=== PATIENT | female | born 1975 | race Caucasian/White ===

== ENCOUNTER 2017-12-18 13:48 | Emergency (ER) | payer MEDICARE, OTHER ==
--- NOTE | 2017-12-18 13:52 | ED ---
Psych HPI - General Source: RN notes reviewed, old records reviewed - History of Present Illness Complaint: suicidal ideation, feels depressed -: unknown Associated Psychiatric Symptoms: depression, suicidal ideation History of same: Yes Quality: changing over time, getting worse Improves With: none Worsens With: none Associated Symptoms: denies other symptoms Treatments Prior to Arrival: none If Self Harm: admits thoughts of self harm <Harrison Carrero - Last Filed: 12/18/17 14:17> <Maxime Her - Last Filed: 12/18/17 17:59> - General Stated Complaint: Mental Health Time Seen by Provider: 12/18/17 13:52 - History of Present Illness Initial Comments: This is a 42-year-old female the ER for evaluation. Patient has a for suicidal ideation. Depression. Patient is off all psychiatric medication, states she has no help feels hopeless and would like to kill herself (Harrison Carrero) - Related Data Home Medications Medication Instructions Recorded Confirmed [place] Carbonate 600 mg PO HS 08/30/14 12/18/17 Buprenorphine HCl/Naloxone HCl 1 tab SUBLINGUAL BID 12/18/17 12/18/17 [Zubsolv 5.7-1.4 mg Tablet Sl] Gabapentin 800 mg PO QID 12/18/17 12/18/17 PARoxetine HCL [Paxil Cr] 37.5 mg PO DAILY 12/18/17 12/18/17 Allergies Allergy/AdvReac Type Severity Reaction Status Date / Time ketorolac tromethamine Allergy Rash/Hives Verified 12/18/17 14:29 [From Toradol] mushroom Allergy Unknown Verified 12/18/17 14:29 tramadol AdvReac SEIZURES Verified 12/18/17 14:29 Review of Systems ROS Other: All systems not noted in ROS Statement are negative. <Harrison Carrero - Last Filed: 12/18/17 14:17> ROS Other: All systems not noted in ROS Statement are negative. <Maxime Her - Last Filed: 12/18/17 17:59> ROS Statement: Those systems with pertinent positive or pertinent negative responses have been documented in the HPI. Past Medical History Past Medical History: Seizure Disorder Additional Past Medical History / Comment(s): BACK PAIN, ARTHRITIS History of Any Multi-Drug Resistant Organisms: None Reported Additional Past Surgical History / Comment(s): LAP BAND Past Psychological History: Bipolar Smoking Status: Current every day smoker Past Alcohol Use History: None Reported Past Drug Use History: None Reported <Harrison Carrero - Last Filed: 12/18/17 14:17> Vital Signs 12/18/17 13:55 Temperature 98.7 F Pulse Rate 80 Respiratory 18 Rate Blood Pressure 144/112 O2 Sat by Pulse 98 Oximetry Medical Decision Making <Harrison Carrero - Last Filed: 12/18/17 14:17> <Maxime Her - Last Filed: 12/18/17 17:59> - Medical Decision Making Patient reevaluated after sign out and EPS evaluation. She is no longer suicidal. She feels comfortable with discharge. EPS recommends discharge and close outpatient follow-up. She will follow-up with [facility] tomorrow. She will resume her medications. Return with worsening or changing symptoms. (Maxime Her) Disposition <Harrison Carrero - Last Filed: 12/18/17 14:17> Is patient prescribed a controlled substance at d/c from ED?: No Time of Disposition: 17:59 <Maxime Her - Last Filed: 12/18/17 17:59> Clinical Impression: Depression Disposition: HOME SELF-CARE Condition: Good Instructions: Depression (ED) Referrals: Ralph Corrales MD [Primary Care Provider] - 1-2 days
[2017-12-18 14:01] VITALS: RESP 18; TEMP 98.7
[2017-12-18 18:25] VITALS: BP 106/91; PULSE 81
== END 2017-12-18 18:37 | disposition home or self-care (01) ==
LOC: EC 13:48
DX: F31.9 Bipolar disorder, unspecified (principal); G40.909 Epilepsy, unspecified, not intractable, without status epilepticus; F17.200 Nicotine dependence, unspecified, uncomplicated; Z79.899 Other long term (current) drug therapy; Z88.5 Allergy status to narcotic agent; Z88.6 Allergy status to analgesic agent; Z88.8 Allergy status to other drugs, medicaments and biological substances; Z91.018 Allergy to other foods
CPT/HCPCS: 82075; 99285

== ENCOUNTER 2018-02-24 17:28 | Emergency (ER) | payer MEDICARE, OTHER ==
[2018-02-24 17:38] VITALS: RESP 18
[2018-02-24] MEDS ORDERED: HYDROcodone/APAP 5-325MG 1 EACH TAB PO STA (18:53)
[2018-02-24] MEDS ORDERED: DIAZEPAM 5 MG TAB PO STA (18:54)
--- NOTE | 2018-02-24 19:26 | ED ---
Fall HPI - General Chief Complaint: Fall Stated Complaint: Back Pain Time Seen by Provider: 02/24/18 17:59 Source: patient, EMS Mode of arrival: EMS - History of Present Illness Initial Comments: 43-year-old female patient presents to the emergency department today for evaluation after expressing a slip and fall accident and her driveway. Patient states that her primary care physician is no longer providing her Xanax so her anxiety and panic has been increased lately. Patient states she was startled by something in the driveway when she panicked, slipped, and fell. Patient states she did land on her back. She denies hitting her head or losing consciousness. States that she is having increased neck and back pain after the fall. States she is having some pain radiating into her bilateral shoulders. States that she is experiencing some tingling to her lower extremities. She denies any loss of bowel or bladder control. Denies any saddle anesthesia. Patient states she does have history of back and neck pain. Denies taking anything for pain or discomfort prior to arrival. She was brought in by EMS. Patient denies any headache, chest pain, shortness of breath , dizziness, weakness, abdominal pain, nausea, vomiting, or difficulties with bowel movements or urination. - Related Data Home Medications Medication Instructions Recorded Confirmed PARoxetine HCL [Paxil Cr] 37.5 mg PO DAILY 12/18/17 02/24/18 Previous Rx's Medication Instructions Recorded Cyclobenzaprine [Flexeril] 10 mg PO TID #15 tab 02/24/18 Ibuprofen [Motrin] 600 mg PO Q8HR PRN #30 tab 02/24/18 Allergies Allergy/AdvReac Type Severity Reaction Status Date / Time ketorolac tromethamine Allergy Rash/Hives Verified 02/24/18 17:57 [From Toradol] mushroom Allergy Unknown Verified 02/24/18 17:57 tramadol AdvReac SEIZURES Verified 02/24/18 17:57 Review of Systems ROS Statement: Those systems with pertinent positive or pertinent negative responses have been documented in the HPI. ROS Other: All systems not noted in ROS Statement are negative. Past Medical History Past Medical History: Seizure Disorder Additional Past Medical History / Comment(s): BACK PAIN, ARTHRITIS History of Any Multi-Drug Resistant Organisms: None Reported Additional Past Surgical History / Comment(s): LAP BAND, left foot Past Psychological History: Anxiety, Bipolar, Depression Smoking Status: Current every day smoker Past Alcohol Use History: None Reported Past Drug Use History: None Reported General Exam Limitations: no limitations General appearance: alert, in no apparent distress, other (This is a well- developed, well-nourished adult female patient in no acute distress. Vital signs upon presentation are temperature 97.0F, pulse 89, respirations 18, blood pressure 126/94, pulse ox 98% on room air.) Eye exam: Present: normal appearance, PERRL, EOMI. Absent: scleral icterus, conjunctival injection, periorbital swelling ENT exam: Present: normal exam, normal oropharynx, mucous membranes moist Neck exam: Present: normal inspection, other (There is tenderness to the posterior cervical spine. There is no bony step-off or deformity noted to for midline palpation.). Absent: tenderness, meningismus, full ROM (C-collar in place), lymphadenopathy Respiratory exam: Present: normal lung sounds bilaterally. Absent: respiratory distress, wheezes, rales, rhonchi, stridor Cardiovascular Exam: Present: regular rate, normal rhythm, normal heart sounds. Absent: systolic murmur, diastolic murmur, rubs, gallop, clicks GI/Abdominal exam: Present: soft, normal bowel sounds. Absent: distended, tenderness, guarding, rebound, rigid Back exam: Present: normal inspection, other (Patient reports increased movement with flexion and extension of the back). Absent: vertebral tenderness Neurological exam: Present: alert, oriented X3, CN II-XII intact Psychiatric exam: Present: normal affect, normal mood Skin exam: Present: warm, dry, intact, normal color. Absent: rash Course Vital Signs 02/24/18 02/24/18 17:33 20:18 Temperature 97 F L 98 F Pulse Rate 89 77 Respiratory 18 18 Rate Blood Pressure 126/94 109/63 O2 Sat by Pulse 98 97 Oximetry Medical Decision Making - Medical Decision Making 43-year-old female patient presents the emergency department today for evaluation of neck and back pain after x-rays and a slip and fall accident in her urine. Physical examination did reveal tenderness over the cervical spine. Patient was neurologically and neurovascularly intact. She had no focal deficits. Patient is given pain medication as well as anxiety medication here in the emergency department. X-rays of the thoracic, cervical, and lumbosacral spines are obtained and showed no acute abnormalities. Patient is ambulatory in the department. She'll be discharged home at this time to follow-up through primary care physician for recheck in 1-2 days. She is educated regarding supportive care, pain management, and range of motion exercises. Return parameters discussed in detail. She verbalizes understanding and agrees with this plan. - Radiology Data Radiology results: report reviewed, image reviewed 3 views of the thoracic spine are obtained. Report was reviewed in its entirety. Impression by Dr. Rivera shows no acute fracture or dislocation seen in the thoracic spine. 4 views of the lumbosacral spine are obtained. Report was reviewed in its entirety. Impression by Dr. Rivera shows no acute fracture dislocation seen in the lumbar spine. 4 views of the cervical spine are obtained. Report is reviewed in its entirety. Impression by Dr. Rivera shows no acute fracture dislocation seen in the cervical spine. Disposition Clinical Impression: Back strain, Anxiety Disposition: HOME SELF-CARE Condition: Good Instructions: Cervical Strain (ED), Low Back Strain (ED), Anxiety (ED), Thoracic Back Strain (ED) Additional Instructions: Apply ice to the painful areas for the first 24 hours. Switch to warm moist heat. Perform gentle range of motion exercises. Follow-up with her primary care physician for recheck and refill of your anxiety medication. Return to the emergency department immediately for any new, worsening, or concerning symptoms. Prescriptions: Cyclobenzaprine [Flexeril] 10 mg PO TID #15 tab Ibuprofen [Motrin] 600 mg PO Q8HR PRN #30 tab PRN Reason: Pain Is patient prescribed a controlled substance at d/c from ED?: No Referrals: Ralph Corrales MD [Primary Care Provider] - 1-2 days Time of Disposition: 20:03
--- NOTE | 2018-02-24 19:32 | XR ---
EXAMINATION TYPE: XR cervical spine trauma DATE OF EXAM: 02/24/2018 TECHNIQUE: Frontal, lateral, oblique, and open mouth view of the cervical spine are obtained. HISTORY: Pain pain after fall injury today. COMPARISON: None FINDINGS: The cervical spine is visualized in its entirety from C1 thru the top of T1 level, it is s atisfactory in alignment without evidence of acute fracture or dislocation. The pre-vertebral soft t issue appears within normal limits. The C1-C2 articulation is within normal limits on the open mouth view. Vertebral body heights and disc space heights are maintained. The oblique images are within no rmal limits. Overlying soft tissue is unremarkable. IMPRESSION: No acute fracture or dislocation is seen in the cervical spine.
--- NOTE | 2018-02-24 19:42 | XR ---
EXAMINATION TYPE: XR thoracic spine complete DATE OF EXAM: 02/24/2018 CLINICAL HISTORY: Fall with mid back pain. TECHNIQUE: Frontal, lateral, and swimmer's view of thoracic spine are obtained. COMPARISON: None. FINDINGS: Thoracic spine show satisfactory alignment without evidence of acute fracture or dislocatio n. Vertebral body heights and disc space heights are preserved. Visualized ribs are unremarkable. Overlying lap band device is partially imaged. Cholecystectomy clips are also partially imaged. IMPRESSION: No acute fracture or dislocation is seen in the thoracic spine.
--- NOTE | 2018-02-24 19:43 | XR ---
EXAMINATION TYPE: XR lumbosacral spine min 4V DATE OF EXAM: 02/24/2018 CLINICAL HISTORY: Pain from fall injury. TECHNIQUE: Frontal, lateral, and oblique images of the lumbar spine are obtained. COMPARISON: None FINDINGS: There are 5 lumbar type vertebral bodies identified. The lumbar spine shows satisfactory alignment without evidence of acute fracture or dislocation. Vertebral body heights and disk space he ights are within normal limits. Mild disc space narrowing L5-S1 level is present. The oblique image s appear within normal limits. Lap band device overlying soft tissue is partially imaged. IMPRESSION: No acute fracture or dislocation is seen in the lumbar spine.
[2018-02-24] MEDS ORDERED: ACET/COD 300 MG/30 MG STARTER PACK 6 TAB BTL PO STA (20:03)
[2018-02-24] MEDS ORDERED: CYCLOBENZAPRINE 10MG STARTER 3 TAB BTL PO STA (20:03)
[2018-02-24 20:19] VITALS: BP 109/63; PULSE 77; TEMP 98
== END 2018-02-24 20:19 | disposition home or self-care (01) ==
LOC: EC 17:28
DX: S39.012A Strain of muscle, fascia and tendon of lower back, initial encounter (principal); F41.9 Anxiety disorder, unspecified; M54.2 Cervicalgia; F31.9 Bipolar disorder, unspecified; F17.200 Nicotine dependence, unspecified, uncomplicated; Z79.899 Other long term (current) drug therapy; Z88.6 Allergy status to analgesic agent; Z88.5 Allergy status to narcotic agent; Z91.018 Allergy to other foods; W00.0XXA Fall on same level due to ice and snow, initial encounter; Y92.009 Unspecified place in unspecified non-institutional (private) residence as the place of occurrence of the external cause
CPT/HCPCS: 72050; 72072; 72110; 99284

== ENCOUNTER 2019-02-20 18:57 | Emergency (ER) | payer MEDICARE, OTHER ==
[2019-02-20 19:00] VITALS: RESP 18
[2019-02-20] MEDS ORDERED: HYDROcodone/APAP 5-325MG 1 EACH TAB PO STA (19:06)
--- NOTE | 2019-02-20 19:10 | ED ---
General Adult HPI - General Chief complaint: Extremity Injury, Lower Stated complaint: Ankle injury Time Seen by Provider: 02/20/19 19:01 Source: patient, EMS, RN notes reviewed Mode of arrival: EMS Limitations: no limitations - History of Present Illness Initial comments: 44-year-old female with a past medical history of back pain, arthritis presents to the emergency department for right ankle pain. Patient states that she was sitting on the couch for quite a long time and her foot was asleep. Pt had to go to the bathroom and she tripped and fell. States she hurt her ankle. Patient called EMS. States it is painful to walk on but she can do so. States the pain does radiate into the foot. Denies upper leg pain. Denies hitting her head. Denies any loss of consciousness or weakness preceding this fall. States sensation is back to normal in her right lower extremity aside from the pain.Patient has no other complaints at this time including shortness of breath, chest pain, abdominal pain, nausea or vomiting, headache, or visual changes. - Related Data Home Medications Medication Instructions Recorded Confirmed PARoxetine HCL [Paxil Cr] 37.5 mg PO DAILY 12/18/17 05/07/18 Gabapentin 600 mg PO QID 05/07/18 05/07/18 [place] Carbonate 600 mg PO HS 05/07/18 05/07/18 Previous Rx's Medication Instructions Recorded Butalb/APAP/Caff 50-325-40Mg 1 each PO Q6HR PRN #16 tab 05/08/18 [Fioricet 50-325-40] Ibuprofen [Motrin] 600 mg PO Q8HR PRN #20 tab 02/20/19 Allergies Allergy/AdvReac Type Severity Reaction Status Date / Time ketorolac tromethamine Allergy Rash/Hives Verified 02/20/19 19:00 [From Toradol] mushroom Allergy Unknown Verified 02/20/19 19:00 tramadol AdvReac SEIZURES Verified 02/20/19 19:00 Review of Systems ROS Statement: Those systems with pertinent positive or pertinent negative responses have been documented in the HPI. ROS Other: All systems not noted in ROS Statement are negative. Past Medical History Past Medical History: Seizure Disorder Additional Past Medical History / Comment(s): BACK PAIN, ARTHRITIS, low thyroid hormone History of Any Multi-Drug Resistant Organisms: None Reported Past Surgical History: Bariatric Surgery, Cholecystectomy, Orthopedic Surgery Additional Past Surgical History / Comment(s): LAP BAND, left foot Past Anesthesia/Blood Transfusion Reactions: No Reported Reaction, Motion Sickness Past Psychological History: Anxiety, Bipolar, Depression Smoking Status: Current every day smoker Past Alcohol Use History: None Reported Past Drug Use History: Marijuana - Past Family History Father Family Medical History: Cancer Additional Family Medical History / Comment(s): Father of brain cancer at the age of 77yrs. Mother Additional Family Medical History / Comment(s): Mother of "heart problems" at the age of 62 yrs. General Exam Limitations: no limitations General appearance: alert, in no apparent distress Head exam: Present: atraumatic, normocephalic, normal inspection Eye exam: Present: normal appearance, PERRL, EOMI. Absent: scleral icterus, conjunctival injection, periorbital swelling ENT exam: Present: normal exam, mucous membranes moist Neck exam: Present: normal inspection, full ROM. Absent: tenderness, meningismus, lymphadenopathy Respiratory exam: Present: normal lung sounds bilaterally. Absent: respiratory distress, wheezes, rales, rhonchi, stridor Cardiovascular Exam: Present: regular rate, normal rhythm, normal heart sounds. Absent: systolic murmur, diastolic murmur, rubs, gallop, clicks Extremities exam: Present: tenderness (Tenderness noted over the lateral malleolus, no significant foot tenderness.), normal capillary refill (Capillary refill less than 2 seconds, pedal pulse 2+ in the right lower extremity.), joint swelling (Patient does have moderate lateral malleolus or edema, no ecchymosis at this time.), other (Sensation intact in the right lower extremity, equal to the left.). Absent: full ROM (Patient has limited dorsi and plantar flexion of the right ankle as well as inversion and eversion secondary to pain. However these mechanisms are intact.), pedal edema, calf tenderness Course Vital Signs 02/20/19 18:58 Temperature 98.0 F Pulse Rate 80 Respiratory 18 Rate Blood Pressure 130/91 O2 Sat by Pulse 100 Oximetry Procedures - Orthopedic Splinting/Casting Injury #1 Side: right Lower Extremity Injury Location: short leg Lower Extremity Immobilizer: stirrup splint Other Orthopedic Equipment: crutches Additional Comments: NV intact after splint applied Medical Decision Making - Medical Decision Making X-ray of the right foot shows no acute fracture or dislocation. Heel spurs evident. Soft tissue swelling over lateral malleolus. Given degree of malleolar swelling Patient was splinted in a stirrup splint. She will follow up with orthopedics. She'll return here if she has any worsening symptoms. Discussed rice therapy and Motrin and Tylenol for pain. Disposition Clinical Impression: Ankle pain, right Disposition: HOME SELF-CARE Condition: Good Instructions (If sedation given, give patient instructions): Ankle Sprain (ED) Additional Instructions: Please take Motrin and Tylenol for pain. If pain is severe take Tylenol 3. Do not drive or operate machinery while taking Tylenol 3. Rest ice and elevate the right foot. Use crutches or ambulation. Follow-up with orthopedics in 1-2 days. Return to the emergency dept for any worsening symptoms Prescriptions: RX: Ibuprofen [Motrin] 600 mg PO Q8HR PRN #20 tab PRN Reason: Pain Is patient prescribed a controlled substance at d/c from ED?: No Referrals: Saad Ferrell MD [STAFF PHYSICIAN] - 1-2 days Time of Disposition: 20:14
--- NOTE | 2019-02-20 19:44 | XR ---
EXAMINATION TYPE: XR ankle complete RT DATE OF EXAM: 02/20/2019 COMPARISON: None HISTORY: Pain lateral malleolus TECHNIQUE: Three-view right ankle FINDINGS: Ankle mortise is intact. No acute fractures or dislocations are evident. Plantar and Achill es tendon calcaneal heel spurs are present. There is soft tissue swelling over the lateral malleolus. Calcification is within the soft tissues anterior to the distal tibia. IMPRESSION: 1. Soft tissue swelling lateral malleolus. 2. Follow-up exam can be performed 7-10 days from acute trauma for continued pain.
--- NOTE | 2019-02-20 19:45 | XR ---
EXAMINATION TYPE: XR foot complete RT DATE OF EXAM: 02/20/2019 COMPARISON: 08/30/2014 HISTORY: Pain lateral TECHNIQUE: Three-view right foot FINDINGS: No acute fractures or dislocations are evident. Plantar and Achilles tendon calcaneal heel spurs are present. Soft tissue swelling is over the lateral malleolus. Follow-up exams can be performed 7-10 days from acute trauma for continued pain. IMPRESSION: 1. Soft tissue spine lateral malleolus. 2. No acute fracture. Follow-up as clinically indicated.
[2019-02-20] MEDS ORDERED: ACET/COD 300 MG/30 MG STARTER PACK 6 TAB BTL PO STA (20:17)
[2019-02-20 20:37] VITALS: BP 130/85; PULSE 79; TEMP 97.9
== END 2019-02-20 20:45 | disposition home or self-care (01) ==
LOC: EC 18:57
DX: M25.571 Pain in right ankle and joints of right foot (principal); M77.31 Calcaneal spur, right foot; M79.89 Other specified soft tissue disorders; G40.909 Epilepsy, unspecified, not intractable, without status epilepticus; M19.90 Unspecified osteoarthritis, unspecified site; F31.9 Bipolar disorder, unspecified; F41.9 Anxiety disorder, unspecified; F17.200 Nicotine dependence, unspecified, uncomplicated; Z88.5 Allergy status to narcotic agent; Z88.6 Allergy status to analgesic agent; Z91.018 Allergy to other foods; Z79.899 Other long term (current) drug therapy; W01.0XXA Fall on same level from slipping, tripping and stumbling without subsequent striking against object, initial encounter; Y93.89 Activity, other specified; Y92.009 Unspecified place in unspecified non-institutional (private) residence as the place of occurrence of the external cause
CPT/HCPCS: 29515; 99283

== ENCOUNTER 2019-08-18 15:59 | Emergency (ER) | payer MEDICARE, OTHER ==
[2019-08-18 16:10] VITALS: BP 144/95; PULSE 98; RESP 18; TEMP 98.7
[2019-08-18] MEDS ORDERED: predniSONE 20 MG TAB PO STA (16:28)
[2019-08-18] MEDS ORDERED: diphenhydrAMINE 50 MG CAP PO STA ×2 (16:28→17:09)
--- NOTE | 2019-08-18 16:30 | ED ---
Skin/Abscess/FB HPI - General Chief complaint: Skin/Abscess/Foreign Body Stated complaint: rash Time Seen by Provider: 08/18/19 16:15 Source: patient Mode of arrival: ambulatory Limitations: no limitations - History of Present Illness Initial comments: 44-year-old female presents today for chief complaint of rash all over. Patient states that she has itchiness between her fingers on her arms and legs on her chest. She states some of them look like small scratches. Patient states that she is very itchy and increases at night. Patient denies new medications denies , denies fevers, or new lotions/skin products/detergents. Patient denies any plant exposures. Denies experiencing this before. Denies foot or oral involvement. Denies concern STD, lesions of the vulva/vagina. Patient denies additional complaints and presented for symptomatic control as she can no longer tolerate the itchiness and thus presented to the ER. Upon arrival patient appears in no distress. - Related Data Home Medications Medication Instructions Recorded Confirmed PARoxetine HCL [Paxil Cr] 37.5 mg PO DAILY 12/18/17 05/07/18 Gabapentin 600 mg PO QID 05/07/18 05/07/18 [place] Carbonate 600 mg PO HS 05/07/18 05/07/18 Previous Rx's Medication Instructions Recorded Butalb/APAP/Caff 50-325-40Mg 1 each PO Q6HR PRN #16 tab 05/08/18 [Fioricet 50-325-40] Ibuprofen [Motrin] 600 mg PO Q8HR PRN #20 tab 02/20/19 Permethrin 5% Cream [Elimite] 1 applic TOPICAL ONCE 1 Days #30 08/18/19 cream..g. Allergies Allergy/AdvReac Type Severity Reaction Status Date / Time ketorolac tromethamine Allergy Rash/Hives Verified 08/18/19 16:10 [From Toradol] mushroom Allergy Unknown Verified 08/18/19 16:10 tramadol AdvReac SEIZURES Verified 08/18/19 16:10 Review of Systems ROS Statement: Those systems with pertinent positive or pertinent negative responses have been documented in the HPI. ROS Other: All systems not noted in ROS Statement are negative. Past Medical History Past Medical History: Seizure Disorder Additional Past Medical History / Comment(s): BACK PAIN, ARTHRITIS, low thyroid hormone History of Any Multi-Drug Resistant Organisms: None Reported Past Surgical History: Bariatric Surgery, Cholecystectomy, Orthopedic Surgery Additional Past Surgical History / Comment(s): LAP BAND, left foot Past Anesthesia/Blood Transfusion Reactions: No Reported Reaction, Motion Sickness Past Psychological History: Anxiety, Bipolar, Depression Smoking Status: Current every day smoker Past Alcohol Use History: None Reported Past Drug Use History: Marijuana - Past Family History Father Family Medical History: Cancer Additional Family Medical History / Comment(s): Father of brain cancer at the age of 77yrs. Mother Additional Family Medical History / Comment(s): Mother of "heart problems" at the age of 62 yrs. General Exam - General Exam Comments Initial Comments: General: The patient is awake and alert, in no distress, and does not appear acutely ill. Eye: Pupils are equal, round and reactive to light, extra-ocular movements are intact. No nystagmus. There is normal conjunctiva bilaterally. No signs of icterus. Cardiovascular: There is a regular rate and rhythm. No murmur, rub or gallop is appreciated. Mouth: no oral lesions Respiratory: Lungs are clear to auscultation, respirations are non-labored, breath sounds are equal. No wheezes, stridor, rales, or rhonchi. Musculoskeletal: Normal ROM, no tenderness. Strength 5/5. Sensation intact. Radial pulses equal bilaterally 2+. Neurological: A&O x 3. CN II-XII intact grossly, There are no obvious motor or sensory deficits. Coordination appears grossly intact. Speech is normal. Skin: Skin is warm and dry and no rashes small pinpoint lesions some and streaking linear burrows on the legs arms chest there is linear burrows between that webspaces of the fingers nt. Limitations: no limitations Course Vital Signs 08/18/19 16:08 Temperature 98.7 F Pulse Rate 98 Respiratory 18 Rate Blood Pressure 144/95 O2 Sat by Pulse 98 Oximetry Medical Decision Making - Medical Decision Making 44yo female presenting for cc of itchy rash. Appears consistent wtih scabies. No fevers. No new medications. Patient givne bendaryl. Will be discharged with PCP f/u and permethrin. Patient is aware of return parameters and was discharged appearing wlel.. Disposition Clinical Impression: Rash Disposition: HOME SELF-CARE Condition: Good Instructions (If sedation given, give patient instructions): Scabies (ED) Additional Instructions: Please use medication as discussed. Please follow-up with family doctor in the next 2 days.. Please return to emergency room if the symptoms increase or worsen or for any other concerns. Prescriptions: Permethrin 5% Cream [Elimite] 1 applic TOPICAL ONCE 1 Days #30 cream..g. Is patient prescribed a controlled substance at d/c from ED?: No Referrals: None,Stated [Primary Care Provider] - 1-2 days Time of Disposition: 16:30
== END 2019-08-18 17:14 | disposition home or self-care (01) ==
LOC: EC 15:59
DX: R21 Rash and other nonspecific skin eruption (principal); F32.9 Major depressive disorder, single episode, unspecified; F41.9 Anxiety disorder, unspecified; G40.909 Epilepsy, unspecified, not intractable, without status epilepticus; F17.200 Nicotine dependence, unspecified, uncomplicated; Z79.899 Other long term (current) drug therapy; Z88.6 Allergy status to analgesic agent; Z88.8 Allergy status to other drugs, medicaments and biological substances; Z91.018 Allergy to other foods
CPT/HCPCS: 99282; J7512

== ENCOUNTER 2020-02-05 05:07 | Inpatient (IN) | payer MEDICARE, OTHER ==
[2020-02-05] MEDS ORDERED: SODIUM CHLORIDE 0.9% 1,000 ML IV STA (05:08)
--- NOTE | 2020-02-05 05:17 | ED ---
Chest Pain HPI - General Chief Complaint: Chest Pain Stated Complaint: SOB Time Seen by Provider: 02/05/20 05:08 Source: EMS, RN notes reviewed, old records reviewed Mode of arrival: EMS Limitations: no limitations - History of Present Illness Initial Comments: This is a 45 show female DF for evaluation she has significant family history of heart disease with mother dying at a young age from heart attack. Patient's of bariatric patient who does smoke coming in for 3 days of not feeling well chest pain bodyaches and pains shortness of breath and diaphoresis. Symptoms have progressed over the last 2 days and she was unable to get herself to stop swelling today hence calling EMS and presents emergency department. Patient has no diabetes no heart cholesterol no high blood pressure. MD Complaint: chest pain -: days(s) (3) Pain Location: substernal Pain Radiation: LUE Severity: moderate Severity scale (1-10): 4 Quality: tightness, heaviness Consistency: constant Improves With: nothing Worsens With: nothing Context: other (diaphoresis) Other Symptoms: palpitations Treatments Prior to Arrival: none - Related Data Home Medications Medication Instructions Recorded Confirmed PARoxetine HCL [Paxil Cr] 37.5 mg PO DAILY 12/18/17 05/07/18 Gabapentin 600 mg PO QID 05/07/18 05/07/18 [place] Carbonate 600 mg PO HS 05/07/18 05/07/18 Previous Rx's Medication Instructions Recorded Butalb/APAP/Caff 50-325-40Mg 1 each PO Q6HR PRN #16 tab 05/08/18 [Fioricet 50-325-40] Ibuprofen [Motrin] 600 mg PO Q8HR PRN #20 tab 02/20/19 Permethrin 5% Cream [Elimite] 1 applic TOPICAL ONCE 1 Days #30 08/18/19 cream..g. Allergies Allergy/AdvReac Type Severity Reaction Status Date / Time ketorolac tromethamine Allergy Rash/Hives Verified 08/18/19 16:10 [From Toradol] mushroom Allergy Unknown Verified 08/18/19 16:10 tramadol AdvReac SEIZURES Verified 08/18/19 16:10 Review of Systems ROS Statement: Those systems with pertinent positive or pertinent negative responses have been documented in the HPI. ROS Other: All systems not noted in ROS Statement are negative. EKG Findings - EKG Comments: EKG Findings:: EKG shows sinus rhythm she has a wide QRS, [place] 72 QRS 134 QTC 43 this EKG is significantly changed from prior Past Medical History Past Medical History: Seizure Disorder Additional Past Medical History / Comment(s): BACK PAIN, ARTHRITIS, low thyroid hormone History of Any Multi-Drug Resistant Organisms: None Reported Past Surgical History: Bariatric Surgery, Cholecystectomy, Orthopedic Surgery Additional Past Surgical History / Comment(s): LAP BAND, left foot Past Anesthesia/Blood Transfusion Reactions: No Reported Reaction, Motion Sickness Past Psychological History: Anxiety, Bipolar, Depression Smoking Status: Current every day smoker Past Alcohol Use History: None Reported Past Drug Use History: Marijuana - Past Family History Father Family Medical History: Cancer Additional Family Medical History / Comment(s): Father of brain cancer at the age of 77yrs. Mother Additional Family Medical History / Comment(s): Mother of "heart problems" at the age of 62 yrs. General Exam General appearance: alert, anxious, in distress, obese, other (Diaphoretic) Head exam: Present: atraumatic, normocephalic, normal inspection Eye exam: Present: normal appearance, PERRL, EOMI. Absent: scleral icterus, conjunctival injection, periorbital swelling ENT exam: Present: normal exam, mucous membranes moist Neck exam: Present: normal inspection. Absent: tenderness, meningismus, lymphadenopathy Respiratory exam: Present: normal lung sounds bilaterally. Absent: respiratory distress, wheezes, rales, rhonchi, stridor Cardiovascular Exam: Present: regular rate, normal rhythm, normal heart sounds. Absent: systolic murmur, diastolic murmur, rubs, gallop, clicks GI/Abdominal exam: Present: soft, normal bowel sounds. Absent: distended, tenderness, guarding, rebound, rigid Extremities exam: Present: normal inspection, full ROM, normal capillary refill. Absent: tenderness, pedal edema, joint swelling, calf tenderness Back exam: Present: normal inspection Neurological exam: Present: alert, oriented X3, CN II-XII intact Psychiatric exam: Present: normal affect, normal mood Skin exam: Present: warm, dry, intact, normal color. Absent: rash Course Vital Signs 02/05/20 02/05/20 05:09 05:50 Temperature 98.2 F Pulse Rate 75 69 Respiratory 18 18 Rate Blood Pressure 127/87 118/94 O2 Sat by Pulse 99 99 Oximetry - Reevaluation(s) Reevaluation #1: 02/05/20 05:36 Medical records reviewed Reevaluation #2: 02/05/20 05:36 Patient still persistent chest pain here in the ER - Consultations Consultation #1: Dr. 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
[2020-02-05] MEDS ORDERED: MORPHINE SULFATE 4 MG/ML SYRINGE IVP STA (05:22)
[2020-02-05 05:27] LABS: Basophils # (A) 0.1 k/uL (0-0.2); Basophils % (A) 1 %; Eosinophils # (A) 0.2 k/uL (0-0.7); Eosinophils % (A) 2 %; HCT 45.7 % (34.0-46.0); Lymphocytes # (A) 2.1 k/uL (1.0-4.8); Lymphocytes % (A) 26 %; MCH 30.5 pg (25.0-35.0); MCHC 34.9 g/dL (31.0-37.0); MCV 87.3 fL (80.0-100.0); Mean Platelet Volume 7.5; Monocytes # (A) 0.6 k/uL (0-1.0); Monocytes % (A) 8 %; Neutrophils % (A) 61 %; Platelet Count 229 k/uL (150-450); RBC 5.24 m/uL (3.80-5.40); RDW 12.8 % (11.5-15.5); WBC 8.3 k/uL (3.8-10.6)
[2020-02-05] MEDS ORDERED: HEPARIN SODIUM,PORCINE 5,000 UNIT/ML 1 ML VIAL IV ONE (05:33)
[2020-02-05] MEDS ORDERED: ASPIRIN 81 MG PO STA (05:33)
[2020-02-05] MEDS ORDERED: HEPARIN SODIUM,PORCINE 5,000 UNIT/ML 1 ML VIAL IV PRN (05:33)
[2020-02-05] MEDS ORDERED: NITROGLYCERIN SL TABS 0.4 MG TAB SUBLINGUAL PRN (05:33)
[2020-02-05 05:35] LABS: Prothrombin Time 10.1 sec (9.0-12.0)
[2020-02-05 05:36] LABS: ALT 42 U/L (4-34); AST 159 U/L (14-36); African American GFR (CKD) >90 (>60 ml/min/1.73 sqM); Alkaline Phosphatase 75 U/L (38-126); Anion Gap 8 mmol/L; Blood Urea Nitrogen 36 mg/dL (7-17); Calcium 9.7 mg/dL (8.4-10.2); Carbon Dioxide 19 mmol/L (22-30); Chloride 107 mmol/L (98-107); Creatine Kinase 888 U/L (30-135); Glucose 137 mg/dL (74-99); Magnesium 2.1 mg/dL (1.6-2.3); Non-African American GFR(CKD) 80 (>60 ml/min/1.73 sqM); Potassium 4.5 mmol/L (3.5-5.1); Sodium 134 mmol/L (137-145); Total Bilirubin 0.4 mg/dL (0.2-1.3); Total Protein 7.2 g/dL (6.3-8.2)
[2020-02-05] MEDS: ATORVASTATIN 80 MG TAB PO SCH (05:42)
[2020-02-05] MEDS ORDERED: HEPARIN SOD,PORK IN 0.45% NACL 25,000 UNIT in 0.45% NACL 1 250ML.BAG IV SCH (05:45)
[2020-02-05 05:58] LABS: Creatine Kinase MB 53.4 ng/mL (0.0-2.4)
[2020-02-05 05:59] LABS: Troponin I 30.7 ng/mL (0.000-0.034)
[2020-02-05] MEDS: fentaNYL (PF) 50 MCG/ML 2 ML AMP IV ONE ×2 (06:20→06:35)
[2020-02-05] MEDS: MIDAZOLAM 2 MG/2 ML VIAL IV ONE ×2 (06:20→06:35)
[2020-02-05] MEDS ORDERED: IV FLUID CONTINUATION 900 ML IV ONE (06:20)
[2020-02-05] MEDS ORDERED: LIDOCAINE 1% INJ 10MG/ML (20 ML MDV) ONE (06:21)
[2020-02-05] MEDS ORDERED: VERAPAMIL 2.5 MG/ML 2 ML AMP ONE (06:21)
[2020-02-05] MEDS ORDERED: HEPARIN SODIUM 1,000 UN/ML (10ML VL) ONE (06:21)
[2020-02-05] MEDS ORDERED: fentaNYL (PF) 50 MCG/ML 2 ML AMP ONE (06:21)
--- NOTE | 2020-02-05 06:21 | P.CRDCN ---
History of Present Illness History of present illness: HISTORY OF PRESENTING ILLNESS This is a pleasant 45-year-old female past medical history significant for anxiety, obesity status post gastric bypass, marijuana abuse, tobacco abuse. She admits she has been having ongoing off-and-on chest pain over the last 4 days associated with nausea, diaphoresis and shortness of breath. She states she initially thought it may be due to coronavirus and therefore had presented for any care. She states nothing seemed to help it or worsening other than marijuana did somewhat help it. She admits to ongoing chest pain and therefore ER activated the Monitoring Specialist. DIAGNOSTICS EKG reveals wide complex rhythm at 72 bpm with left bundle branch morphology, positive axis inferiorly and with AV dissociation consistent with intraventriuclar rhythm with nomnspecific deep T wave inversion inferiorly. Chest xray no acute process by personal review. Laboratory reviewed, white blood cell count 8.3, hemoglobin 16.0, platelets 229, sodium 134, creatinine 0.88, AST 159, ALP 42, troponin 30.7, proBNP 8780. Current cardiac medications include aspirin 325 mg daily, Lipitor 80 mg daily, Lopressor 25 mg twice a day. REVIEW OF SYSTEMS At the time of my exam: CONSTITUTIONAL: Denies fever or chills. CARDIOVASCULAR: +chest pain, +shortness of breath, no orthopnea, PND or palpitations. RESPIRATORY: Denies cough. GASTROINTESTINAL: Denies abdominal pain, diarrhea, constipation, +nausea no vomiting. MUSCULOSKELETAL: Denies myalgias. NEUROLOGIC: Denies numbness, tingling or weakness. ENDOCRINE: Denies fatigue, weight change, polydipsia or polyurina. GENITOURINARY: Denies burning, hematuria or urgency with micturation. HEMATOLOGIC: Denies history of anemia or bleeding. PHYSICAL EXAMINATION Blood pressure 118/94 heart rate 69 afebrile and maintaining oxygen saturation on room air. CONSTITUTIONAL: Mild distress. Diaphoretic, obese HEENT: Head is normocephalic. Pupils are equal, round. Sclerae anicteric. Mucous membranes of the mouth are moist. No JVD. No carotid bruit. CHEST EXAMINATION: Lungs are clear to auscultation. No chest wall tenderness is noted on palpation or with deep breathing. HEART EXAMINATION: Regular rate and rhythm. S1, S2 heard. No murmurs, gallops or rub. ABDOMEN: Soft, nontender. Positive bowel sounds. EXTREMITIES: 2+ peripheral pulses, no lower extremity edema and no calf tenderness. NEUROLOGIC EXAMINATION: Patient is awake, alert and oriented x3. ASSESSMENT 1. Non-STEMI with persistent chest pain 2. Ventricular rhythm with AV dissociation with LBBB type morphology 3. Tobacco and marijuana abuse 4. Obesity s/p gastric bypass PLAN Aspirin and heparin. Patient having ongoing pain although has been going on for 4 days. Monitoring Specialist was activated. Coronary angiography recommended and further recommendations to follow. Check 2-D echo. Tobacco cessation. Past Medical History Past Medical History: Seizure Disorder Additional Past Medical History / Comment(s): BACK PAIN, ARTHRITIS, low thyroid hormone History of Any Multi-Drug Resistant Organisms: None Reported Past Surgical History: Bariatric Surgery, Cholecystectomy, Orthopedic Surgery Additional Past Surgical History / Comment(s): LAP BAND, left foot Past Anesthesia/Blood Transfusion Reactions: No Reported Reaction, Motion Sickness Past Psychological History: Anxiety, Bipolar, Depression Smoking Status: Current every day smoker Past Alcohol Use History: None Reported Past Drug Use History: Marijuana - Past Family History Father Family Medical History: Cancer Additional Family Medical History / Comment(s): Father of brain cancer at the age of 77yrs. Mother Additional Family Medical History / Comment(s): Mother of "heart problems" at the age of 62 yrs. Medications and Allergies Home Medications Medication Instructions Recorded Confirmed Type PARoxetine HCL [Paxil Cr] 37.5 mg PO DAILY 12/18/17 05/07/18 History Gabapentin 600 mg PO QID 05/07/18 05/07/18 History [place] Carbonate 600 mg PO HS 05/07/18 05/07/18 History Butalb/APAP/Caff 50-325-40Mg 1 each PO Q6HR PRN #16 tab 05/08/18 Rx [Fioricet 50-325-40] Ibuprofen [Motrin] 600 mg PO Q8HR PRN #20 tab 02/20/19 Rx Permethrin 5% Cream [Elimite] 1 applic TOPICAL ONCE 1 Days #30 08/18/19 Rx cream..g. Allergies Allergy/AdvReac Type Severity Reaction Status Date / Time ketorolac tromethamine Allergy Rash/Hives Verified 08/18/19 16:10 [From Toradol] mushroom Allergy Unknown Verified 08/18/19 16:10 tramadol AdvReac SEIZURES Verified 08/18/19 16:10 Physical Exam Vitals: Vital Signs Temp Pulse Resp BP Pulse Ox 02/05/20 05:50 69 18 118/94 99 02/05/20 05:09 98.2 F 75 18 127/87 99 Intake and Output 02/04/20 02/04/20 02/05/20 14:59 22:59 06:59 Other: Weight 122.47 kg Results 02/05/20 05:19 02/05/20 05:19 Cardiac Enzymes 02/05/20 02/05/20 Range/Units 05:19 05:19 AST 159 H (14-36) U/L CK-MB (CK-2) 53.4 H (0.0-2.4) ng/mL Troponin I 30.700 H* (0.000-0.034) ng/mL Coagulation 02/05/20 Range/Units 05:19 PT 10.1 (9.0-12.0) sec APTT 23.0 (22.0-30.0) sec CBC 02/05/20 Range/Units 05:19 WBC 8.3 (3.8-10.6) k/uL RBC 5.24 (3.80-5.40) m/uL Hgb 16.0 (11.4-16.0) gm/dL Hct 45.7 (34.0-46.0) % Plt Count 229 (150-450) k/uL Comprehensive Metabolic Panel 02/05/20 Range/Units 05:19 Sodium 134 L (137-145) mmol/L Potassium 4.5 (3.5-5.1) mmol/L Chloride 107 (98-107) mmol/L Carbon Dioxide 19 L (22-30) mmol/L BUN 36 H (7-17) mg/dL Creatinine 0.88 (0.52-1.04) mg/dL Glucose 137 H (74-99) mg/dL Calcium 9.7 (8.4-10.2) mg/dL AST 159 H (14-36) U/L ALT 42 H (4-34) U/L Alkaline Phosphatase 75 (38-126) U/L Total Protein 7.2 (6.3-8.2) g/dL Albumin 4.0 (3.5-5.0) g/dL Current Medications Generic Name Dose Route Start Last Admin Trade Name Freq PRN Reason Stop Dose Admin Aspirin 325 mg 12/19/20 09:00 Aspirin 325 Mg Tab PO DAILY [facility] Atorvastatin Calcium 80 mg 02/05/20 09:00 02/05/20 05:42 Atorvastatin 80 Mg Tab PO 80 mg DAILY TIKI Administration Heparin Sodium (Porcine) 0 unit 02/05/20 05:33 Heparin Sodium,Porcine 5,000 Unit/Ml 1 Ml Vial IV Q6HR PRN Low PTT Protocol Sodium Chloride 1,000 mls @ 100 mls/hr 02/05/20 05:08 02/05/20 05:28 Saline 0.9% IV 02/05/20 15:07 100 mls/hr .Q10H STA Administration Sodium Chloride 1,000 mls @ 100 mls/hr 02/05/20 05:45 Saline 0.9% IV .Q10H TIKI Heparin Sodium/Sodium Chloride 250 mls @ 9.798 mls/hr 02/05/20 05:45 25,000 unit/ Sodium Chloride IV .Q24H [facility] Protocol 8 UNITS/KG/HR Metoprolol Tartrate 25 mg 02/05/20 09:00 Metoprolol Tartrate 25 Mg Tab PO BID [facility] Morphine Sulfate 4 mg 02/05/20 05:22 Morphine Sulfate 4 Mg/Ml Syringe IVP Q4HR PRN Pain Nitroglycerin 0.4 mg 02/05/20 05:33 Nitroglycerin Sl Tabs 0.4 Mg Tab SUBLINGUAL Q5M PRN Chest Pain Intake and Output 02/04/20 02/04/20 02/05/20 14:59 22:59 06:59 Other: Weight 122.47 kg Patient Weight 02/05/20 06:59 Weight 122.47 kg 02/05/20 05:19 02/05/20 05:19
--- NOTE | 2020-02-05 06:22 | XR ---
EXAM: XR Chest, 2 Views CLINICAL HISTORY: ITS.REASON XR Reason: Chest Pain TECHNIQUE: Frontal and lateral views of the chest. COMPARISON: 05/07/2018 FINDINGS: Lungs: No consolidation or mass. Pleural space: No effusion. Heart: No cardiomegaly. Bones/joints: No acute findings. IMPRESSION: No acute cardiopulmonary process.
[2020-02-05] MEDS ORDERED: LIDOCAINE 1% INJ 10MG/ML (20 ML MDV) SQ ONE (06:24)
[2020-02-05] MEDS: VERAPAMIL SYRINGE (5 MG/10 ML) INTRAARTER ONE ×2 (06:25→06:40)
[2020-02-05] MEDS ORDERED: IOPAMIDOL-370 125ML BTL INJ ONE (06:41)
[2020-02-05] MEDS ORDERED: RX INFO: IV CONTRAST WAS GIVEN 1 EACH MISC MISCELLANE PRN (06:45)
--- NOTE | 2020-02-05 06:55 | P.CARDCATH ---
Description of Procedure: PROCEDURES PERFORMED: Bilateral coronary angiography INDICATION: Non-STEMI HISTORY: Patient is a pleasant 45-year-old female with history of tobacco abuse, marijuana abuse, obesity who presents with 4 days of chest pain off and on associated with nausea, diaphoresis and shortness breath. Patient with she has recently been under a fair amount of stress. Patient was found to have wide- complex junctional rhythm with A-V dissociation and nonspecific deep T waves with elevated troponin and ongoing chest pain and therefore geotechnical laboratory technician was activated. CONSENT:I have discussed the risks, benefits and alternative therapies for the above-mentioned procedure and for both sedation/analgesia as well as necessary blood product administration, if indicated, as they pertain to this patient. The patient has indicated understanding and acceptance of the risks and procedures discussed. PROCEDURE: After the risks, benefits and alternatives of the above mentioned procedure explained in detail with the patient, informed consent was obtained. Patient was taken to the catheterization lab and prepped and draped in usual fashion. 1% lidocaine was used to anesthetize the right radial artery. A 6- [place] sheath was placed in the right radial artery using modified Seldinger technique. Left coronary angiography was performed with a 5-[place]ad[place] JL 3.5 catheter and right coronary angiography was performed with a 5-[place] JR5 catheter in various views. Patient had some radial spasm with attempting to cross the valve and therefore procedure ended. The right radial sheath was removed and a TR band was placed with hemostasis achieved. The patient tolerated the procedure well. Patient was transported back to the post catheterization holding area in stable condition. Conscious Sedation: Patient was monitored under the direct supervision of vision of myself for conscious sedation using Versed and fentanyl for a total duration of 20 minutes HEMODYNAMICS: Aorta: 110/72 SELECTIVE CORONARY ARTERIOGRAPHY: LEFT MAIN: The left main is a large caliber vessel which bifurcates into the LAD and circumflex. There is no significant stenosis. LEFT ANTERIOR DESCENDING CORONARY ARTERY: LAD is a large caliber vessel which wraps around to the apex. There is no significant stenosis of the LAD however 30% proximal diagonal 1 disease. LEFT CIRCUMFLEX CORONARY ARTERY: Left circumflex is a moderate caliber vessel without significant stenosis. RIGHT CORONARY ARTERY: The right coronary artery is a large caliber vessel which gives off a PDA and PLV branch and is the dominant vessel. There is no significant stenosis. FINAL IMPRESSION: 1. Relatively normal coronary arteries with only 30% proximal diagonal 1 disease as described above. 2. NSTEMI, possible Takotsubo's vs other PLAN: 1. Aggressive risk factor modification per most recent ACC/AHA guidelines. 2. Check 2D echo.
[2020-02-05 07:47] LABS: Glucose,Whole Blood 123 mg/dL (75-99)
[2020-02-05 08:03] LABS: Mean Platelet Volume 7.5; Platelet Count 213 k/uL (150-450)
[2020-02-05] MEDS ORDERED: METOPROLOL TARTRATE 25 MG TAB PO SCH (09:00)
[2020-02-05] MEDS: SODIUM CHLORIDE 0.9% 1,000 ML IV SCH ×2 (09:18→17:18)
[2020-02-05] MEDS: METOPROLOL TARTRATE 12.5 MG TAB PO SCH ×2 (09:18→09:19)
[2020-02-05] MEDS: ONDANSETRON 4 MG/2 ML VIAL IVP PRN ×2 (10:21→17:22)
[2020-02-05] MEDS: MORPHINE SULFATE 4 MG/ML SYRINGE IVP PRN ×4 (10:22→21:12)
--- NOTE | 2020-02-05 10:54 | ECHOF ---
Referral Reason:NSTEMI, ? Takotsubo's MEASUREMENTS -------- HEIGHT: 180.3 cm WEIGHT: 122.5 kg BP: 123/85 RVIDd: 3.4 cm (< 3.3) IVSd: 1.0 cm (0.6 - 1.1) LVIDd: 4.3 cm (3.9 - 5.3) LVPWd: 1.1 cm (0.6 - 1.1) IVSs: 1.7 cm LVIDs: 3.6 cm LVPWs: 1.5 cm LAESV Index (A-L): 10.06 ml/m Ao Diam: 2.2 cm (2.0 - 3.7) AV Cusp: 1.7 cm (1.5 - 2.6) LA Diam: 3.2 cm (2.7 - 3.8) MV EXCURSION: 11.063 mm (> 18.000) MV EF SLOPE: 104 mm/s (70 - 150) EPSS: 0.8 cm MV E Devon: 0.55 m/s MV DecT: 170 ms MV A [place]: 0.73 m/s MV E/A Ratio: 0.76 RAP: 15.00 mmHg RVSP: 23.22 mmHg TAPSE: 16.49 mm FINDINGS -------- The left ventricular size is normal. There is mild concentric left ventricular hypertrophy. Overa ll left ventricular systolic function is moderate-severely impaired with, an EF between 30 - 35 %. Normal LAP Grade 1 Diastolic Dysfunction. May be basal variant of Takotsubo's cardiomyopathy. Bas al anterior LV wall motion is hypokinetic. Basal lateral LV wall motion is hypokinetic. Basal i nferior LV wall motion is hypokinetic. Basal inferoseptal LV wall motion is hypokinetic. Mid la teral LV wall motion is hypokinetic. The right ventricle is mildly enlarged. The left atrial size is normal. Normal LA size by volume 22+/-6 ml/m2. The right atrial size is normal. The aortic valve is trileaflet and appears structurally normal. The mitral valve is normal. Mild mitral regurgitation is present. The tricuspid valve appears structurally normal. Trace tricuspid regurgitation present. Right tyesha tricular systolic pressure is normal at < 35 mmHg. There is no pulmonic regurgitation present. The aortic root size is normal. The inferior vena cava is mildly dilated. There is a small, generalized pericardial effusion present. CONCLUSIONS -------- 1. The left ventricular size is normal. 2. There is mild concentric left ventricular hypertrophy. 3. Overall left ventricular systolic function is moderate-severely impaired with, an EF between 30 - 35 %. 4. Normal LAP Grade 1 Diastolic Dysfunction. 5. May be basal variant of Takotsubo's cardiomyopathy. 6. Basal anterior LV wall motion is hypokinetic. 7. Basal lateral LV wall motion is hypokinetic. 8. Basal inferior LV wall motion is hypokinetic. 9. Basal inferoseptal LV wall motion is hypokinetic. 10. Mid lateral LV wall motion is hypokinetic. 11. The right ventricle is mildly enlarged. 12. Mild mitral regurgitation is present. 13. Trace tricuspid regurgitation present. 14. The inferior vena cava is mildly dilated. 15. There is a small, generalized pericardial effusion present. EXTRACT WRINGER: Jeimy Delgado RDCS
[2020-02-05] MEDS ORDERED: HYDROcodone/APAP 7.5-325MG 1 EACH TAB PO PRN (11:26)
[2020-02-05 11:50] LABS: Glucose,Whole Blood 128 mg/dL (75-99)
[2020-02-05] MEDS ORDERED: KETOROLAC 15 MG/ML 1 ML VIAL IVP SCH (12:00)
--- NOTE | 2020-02-05 12:17 | P.HPIM ---
History of Present Illness 45-year-old female came in with compensative severe neck pain radiating to the shoulder and the arms with tingling and numbness in the fifth fingers in the left hand. Patient appears to have severe sepsis or cervical cephalalgia as well. Patient appears to have cervical degenerative disc disease. Although patient is found to have elevated troponins because of which patient underwent cardiac catheterization which did not show any significant occlusive disease that can explain the elevation of troponin and there was concern for stress- induced cardiomyopathy or takutsubo syndrome. Patient was also complaining of some diaphoresis shortness of breath and chest pain. Patient when questioned admits to significant stress anxiety and depression at home. Cardiology evaluated the patient and the there concerned about viral cardiomyopathy although patient denied any recent the viral illness or similar symptoms. Review of Systems REVIEW OF SYSTEMS: CONSTITUTIONAL: No fever, no malaise, no fatigue. HEENT: No recent visual problems or hearing problems. Denied any sore throat. CARDIOVASCULAR: No orthopnea, PND, no palpitations, no syncope. PULMONARY: no cough, no hemoptysis. GASTROINTESTINAL: No diarrhea, no nausea, no vomiting, no abdominal pain. NEUROLOGICAL: No headaches, no weakness, no numbness. HEMATOLOGICAL: Denies any bleeding or petechiae. GENITOURINARY: Denies any burning micturition, frequency, or urgency. MUSCULOSKELETAL/RHEUMATOLOGICAL: As mentioned in HPI ENDOCRINE: Denies any polyuria or polydipsia. The rest of the 14-point review of systems is negative. Past Medical History Past Medical History: Seizure Disorder Additional Past Medical History / Comment(s): BACK PAIN, ARTHRITIS, low thyroid hormone History of Any Multi-Drug Resistant Organisms: None Reported Past Surgical History: Bariatric Surgery, Cholecystectomy, Orthopedic Surgery Additional Past Surgical History / Comment(s): LAP BAND, left foot Past Anesthesia/Blood Transfusion Reactions: No Reported Reaction, Motion Sickness Past Psychological History: Anxiety, Bipolar, Depression Additional Psychological History / Comment(s): Pt resides with her significant other. They have a dog. She states she does not have a drivers license. She uses the bus to get to appts. Smoking Status: Current every day smoker Past Alcohol Use History: None Reported Additional Past Alcohol Use History / Comment(s): Pt started smoking in 1989 and is a ppd smoker. She used to drink a bottle of wine a day but quit that years ago. Past Drug Use History: Marijuana Additional Drug Use History / Comment(s): Pt states she overused opiates in the past but no longer a problem for years. - Past Family History Father Family Medical History: Cancer Additional Family Medical History / Comment(s): Father of brain cancer at the age of 77yrs. Mother Additional Family Medical History / Comment(s): Mother of "heart problems" at the age of 62 yrs. Medications and Allergies Home Medications Medication Instructions Recorded Confirmed Type [id number] 2 tab PO Q4HR PRN 02/05/20 02/05/20 History [Excedrin] Butalb/APAP/Caff 50-325-40Mg 1 tab PO BID PRN 02/05/20 02/05/20 History [Fioricet 50-325-40] Ibuprofen [Motrin Ib] 600 mg PO Q8H PRN 02/05/20 02/05/20 History Ondansetron Odt [Zofran Odt] 4 mg PO BID PRN 02/05/20 02/05/20 History Allergies Allergy/AdvReac Type Severity Reaction Status Date / Time ketorolac tromethamine Allergy Rash/Hives Verified 02/05/20 07:51 [From Toradol] mushroom Allergy Unknown Verified 02/05/20 07:51 tramadol AdvReac SEIZURES Verified 02/05/20 07:51 Physical Exam Vitals: Vital Signs Temp Pulse Pulse Resp BP BP Pulse Ox 02/05/20 10:22 97.1 F L 57 L 16 104/78 98 02/05/20 07:15 55 L 106/70 02/05/20 07:00 97.4 F L 55 L 16 90/50 99 02/05/20 06:10 70 18 123/85 98 02/05/20 05:50 69 18 118/94 99 02/05/20 05:09 98.2 F 75 18 127/87 99 Intake and Output 02/04/20 02/05/20 02/05/20 22:59 06:59 14:59 Intake Total 300 20 Balance 300 20 Intake: IV 300 20 Invasive Line 1 10 Invasive Line 2 10 Oral 0 Other: # Voids 0 Weight 122.47 kg 122.47 kg PHYSICAL EXAMINATION: GENERAL: The patient is alert and oriented x3, not in any acute distress. Obese HEENT: Pupils are round and equally reacting to light. EOMI. No scleral icterus. No conjunctival pallor. Normocephalic, atraumatic. No pharyngeal erythema. No thyromegaly. CARDIOVASCULAR: S1 and S2 present. No murmurs, rubs, or gallops. PULMONARY: Chest is clear to auscultation, no wheezing or crackles. ABDOMEN: Soft, nontender, nondistended, normoactive bowel sounds. No palpable organomegaly. MUSCULOSKELETAL: No joint swelling or deformity. EXTREMITIES: No cyanosis, clubbing, or pedal edema. NEUROLOGICAL: Gross neurological examination did not reveal any focal deficits. SKIN: No rashes. Results CBC & Chem 7: 02/05/20 07:48 02/05/20 05:19 Labs: Abnormal Lab Results - Last 24 Hours (Table) 02/05/20 02/05/20 02/05/20 Range/Units 05:19 05:19 07:46 Sodium 134 L (137-145) mmol/L Carbon Dioxide 19 L (22-30) mmol/L BUN 36 H (7-17) mg/dL Glucose 137 H (74-99) mg/dL POC Glucose (mg/dL) 123 H (75-99) mg/dL AST 159 H (14-36) U/L ALT 42 H (4-34) U/L Creatine Kinase 888 H (30-135) U/L CK-MB (CK-2) 53.4 H (0.0-2.4) ng/mL Troponin I 30.700 H* (0.000-0.034) ng/mL C-Reactive Protein (<10.0) mg/L 02/05/20 02/05/20 02/05/20 Range/Units 07:48 11:14 11:49 Sodium (137-145) mmol/L Carbon Dioxide (22-30) mmol/L BUN (7-17) mg/dL Glucose (74-99) mg/dL POC Glucose (mg/dL) 128 H (75-99) mg/dL AST (14-36) U/L ALT (4-34) U/L Creatine Kinase (30-135) U/L CK-MB (CK-2) (0.0-2.4) ng/mL Troponin I 22.700 H* (0.000-0.034) ng/mL C-Reactive Protein 19.8 H (<10.0) mg/L Thrombosis Risk Factor Assmnt - Choose All That Apply Each Factor Represents 1 point: Age 41-60 years, Obesity (BMI >25) Thrombosis Risk Factor Assessment Total Risk Factor Score: 2 Thrombosis Risk Factor Assessment Level: Low Risk Assessment and Plan Plan: -Elevated troponins: Most probably secondary to stress-induced cardiomyopathy patient is status post radical catheterization no evidence of significant atherosclerotic occlusive disease. Continue with supportive care probably will need AIDA inhibitor cardiology evaluated the patient as mentioned above the other differential being viral myocarditis. Patient doesn't have non-ST elevation myocardial infarction. -Neck pain with tingling and numbness in the hand will obtain an x-ray of the neck patient may benefit still steroid injection and epidural area or the nerve block for cervical cephalalgia. Pain management will be consulted -Depression, anxiety: Patient will be started on Floxin which is also helpful for peripheral neuropathy. -Cervical degenerative disc disease with radical apathy: Unfortunately I cannot use nonsteroidal anti-inflammatory medication because of her gastric bypass surgery in the past and the patient is also complaining of gastroesophageal reflux disease symptoms at this time and patient had cardiomyopathy. Patient will be started on Ebro instead. -DVT prophylaxis: Patient is presently on IV heparin.
--- NOTE | 2020-02-05 12:29 | XR ---
EXAMINATION TYPE: XR cervical spine w flex/ext DATE OF EXAM: 02/05/2020 COMPARISON: 02/24/2018 HISTORY: Pain TECHNIQUE: Five-view cervical spine with additional flexion and extension views FINDINGS: Prevertebral space is normal. Posterior spinal lamellar line is intact. Disc heights are pr eserved. Vertebral body alignment is preserved with flexion and extension views. Mild foraminal narro wing is present right C4-5 C5-6. IMPRESSION: 1. Mild degenerative area 2. Flexion and extension views unremarkable. 3. No acute osseous abnormality.
[2020-02-05] MEDS: PANTOPRAZOLE 40 MG/10 ML VIAL IVP SCH ×2 (13:52→21:12)
[2020-02-05] MEDS: DULoxetine HCL 20 MG CAPSULE.DR PO SCH (13:52)
--- NOTE | 2020-02-05 15:21 | P.CON ---
Consult Note - . Consult date: 02/05/20 Assessment/Plan:: This is a 45-year-old lady with history of possible cardiac myopathy underwent coronary catheterization through the right radial artery. Planes of severe pain in the right arm were the radial catheter is still fair. She did have pain in the left arm which has improved and also pain in the neck however this pain is recent and there is no history of chronic neck pain or cervical radiculopathy. She also complains of headache that has been there for 5 days. The patient cannot take anti-inflammatory medications due to her cardiac history. Her pain got better with the morphine IV. Physical exam she is alert oriented 3 in no apparent distress. She has a catheter in the right radial artery. She has tenderness around the catheter. Neuro exam of the upper extremities showed normal and symmetrical muscle strength bilaterally. There is slight tenderness in the cervical paravertebral musculature and in the trapezius muscles bilaterally. Diagnosis: Neck pain due to myofascial disease Tension headache Possible cardiomyopathy Pain around the right radial catheter which was used for the coronary catheterization and this is the major pain the patient has been complaining of currently. Plan: The patient does not manifest significant cervical radiculopathy symptoms. She has tension headaches most likely. Due to the need to avoid anti-inflammatory medications with might need to add [place] 7 with 5 mg 1 every 4-6 hours when necessary pain We will see the radial catheter may help her right arm pain. There is no need for interventional pain procedures at this time If her neck pain continues and status post to manifest cervical radiculopathy symptoms then she might need an MRI of the cervical spine as an outpatient I thank you for the consultation
[2020-02-06] MEDS: MORPHINE SULFATE 4 MG/ML SYRINGE IVP PRN ×3 (01:22→09:07)
[2020-02-06] MEDS: ONDANSETRON 4 MG/2 ML VIAL IVP PRN ×3 (01:22→18:33)
[2020-02-06 02:03] LABS: Amphetamine Screen,Urine Not Detected (NotDetected); Barbiturate Screen,Urine Not Detected (NotDetected); Benzodiazepines Screen,Urine Not Detected (NotDetected); Cocaine Screen,Urine Not Detected (NotDetected); Methadone Screen, Urine Not Detected (NotDetected); Opiate Screen,Urine Detected (NotDetected); Oxycodone Screen, Urine Not Detected (NotDetected); Phencyclidine Screen,Urine Not Detected (NotDetected); Tricyclic Antidepressant,Urine Not Detected (NotDetected); Urn Cannabinoid Scrn Detected (NotDetected)
[2020-02-06 08:27] LABS: Mean Platelet Volume 8.7; Platelet Count 248 k/uL (150-450)
[2020-02-06 08:34] LABS: Cholesterol 125 mg/dL (<200); HDL Cholesterol 25 mg/dL (40-60); LDL Cholesterol,Calculated 72 mg/dL (0-99); Triglycerides 139 mg/dL (<150)
[2020-02-06] MEDS ORDERED: ASPIRIN 325 MG TAB PO SCH (09:00)
[2020-02-06] MEDS: PANTOPRAZOLE 40 MG/10 ML VIAL IVP SCH ×2 (09:01→20:02)
[2020-02-06] MEDS: MAG HYDROX/AL HYDROX/SIMETH 30 ML CUP PO SCH ×4 (09:01→23:07)
[2020-02-06] MEDS: DULoxetine HCL 20 MG CAPSULE.DR PO SCH (09:02)
[2020-02-06] MEDS: ATORVASTATIN 80 MG TAB PO SCH (09:02)
--- NOTE | 2020-02-06 10:11 | P.PN ---
Subjective 45-year-old female came in with compensative severe neck pain radiating to the shoulder and the arms with tingling and numbness in the fifth fingers in the left hand. Patient appears to have severe sepsis or cervical cephalalgia as well. Patient appears to have cervical degenerative disc disease. Although patient is found to have elevated troponins because of which patient underwent cardiac catheterization which did not show any significant occlusive disease that can explain the elevation of troponin and there was concern for stress-induced cardiomyopathy or takutsubo syndrome. Patient was also complaining of some diaphoresis shortness of breath and chest pain. Patient when questioned admits to significant stress anxiety and depression at home. Cardiology evaluated the patient and the there concerned about viral cardiomyopathy although patient denied any recent the viral illness or similar symptoms. 02/06/2020 Patient is euvolemic clinically not requiring any oxygen. IV fluids were discontinued. Patient was evaluated by pain management as cervical spine x-ray showing degenerative disease although mild patient is still complaining of severe nausea Maalox will be added. 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 Cardio vascular: denied any chest pain, palpitations Gastrointestinal denied any vomiting Pulmonary: Denied any shortness of breath cough Neurologic denied any new focal deficits All inpatient medications were reviewed and appropriate changes in these medications as dictated in the interval history and assessment and plan. Objective - Vital Signs Vital signs: Vital Signs Temp 97.9 F 02/06/20 04:00 Pulse 53 L 02/06/20 04:00 Resp 19 02/06/20 04:00 BP 100/77 02/06/20 04:00 Pulse Ox 98 02/06/20 05:33 Intake & Output 02/05/20 02/06/20 02/06/20 18:59 06:59 18:59 Intake Total 600 520 10 Balance 600 520 10 Weight 122.47 kg Intake: IV 60 20 10 Invasive Line 1 30 20 10 Invasive Line 2 30 Oral 540 500 Other: # Voids 2 3 - Exam PHYSICAL EXAMINATION: GENERAL: The patient is alert and oriented x3, not in any acute distress. Obese HEENT: Pupils are round and equally reacting to light. EOMI. No scleral icterus. No conjunctival pallor. Normocephalic, atraumatic. No pharyngeal erythema. No thyromegaly. CARDIOVASCULAR: S1 and S2 present. No murmurs, rubs, or gallops. PULMONARY: Chest is clear to auscultation, no wheezing or crackles. ABDOMEN: Soft, nontender, nondistended, normoactive bowel sounds. No palpable organomegaly. MUSCULOSKELETAL: No joint swelling or deformity. EXTREMITIES: No cyanosis, clubbing, or pedal edema. NEUROLOGICAL: Gross neurological examination did not reveal any focal deficits. SKIN: No rashes. - Labs CBC & Chem 7: 02/06/20 07:25 02/05/20 05:19 Labs: Abnormal Lab Results - Last 24 Hours (Table) 02/05/20 02/05/20 02/05/20 Range/Units 11:14 11:14 11:14 ESR 28 H (0-20) mm/hr POC Glucose (mg/dL) (75-99) mg/dL Troponin I 24.300 H* (0.000-0.034) ng/mL C-Reactive Protein 19.8 H (<10.0) mg/L HDL Cholesterol (40-60) mg/dL Urine Opiates Screen (NotDetected) U Marijuana (THC) Screen (NotDetected) 02/05/20 02/06/20 02/06/20 Range/Units 11:49 01:14 07:25 ESR (0-20) mm/hr POC Glucose (mg/dL) 128 H (75-99) mg/dL Troponin I (0.000-0.034) ng/mL C-Reactive Protein (<10.0) mg/L HDL Cholesterol 25 L (40-60) mg/dL Urine Opiates Screen Detected H (NotDetected) U Marijuana (THC) Screen Detected H (NotDetected) Assessment and Plan Plan: -Elevated troponins: Most probably secondary to stress-induced cardiomyopathy or viral myocarditis patient is status post cardiac catheterization no evidence of significant atherosclerotic occlusive disease. Patient has complete heart block as per cardiology and will need an biventricular AICD -Neck pain with tingling and numbness in the hand will obtain an x-ray of the neck only showed mild degenerative disc disease. Pain management evaluated the patient. -Nausea probably secondary to gastritis or peptic ulcer disease continue with Protonix and Maalox will be continued -Depression, anxiety: Patient is on Cymbalta which is also helpful for peripheral neuropathy. 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 -DVT prophylaxis: Patient is presently on IV heparin.
--- NOTE | 2020-02-06 12:43 | P.PN ---
Progress Note - Text Patient is resting comfortably in bed. 45-year-old female She presented with chest pain and shortness of breath and diaphoresis She had an abnormal ECG but no diabetes no heart disease no dyslipidemia no hypertension EKG showed heart rate is 72 beats a minute left bundle branch block left posterior fascicular block with ST segment abnormalities and evidence of A-V dissociation, status post heart block Coronary angiography revealed 30% proximal diagonal disease 2-D echo shows ejection fraction 30-35% with basal anterior lateral inferior and septal hypokinesis, RV enlargement, small generalized pericardial effusion Labs were reviewed Troponins are abnormal, C-reactive protein 19.8, elevated ESR of 28 CPK elevated at 888 NT proBNP 8700 Patient is resting comfortably in bed. No chest discomfort no shortness of breath no heart failure symptoms line vitals are stable afebrile Heart rates between 50-70, blood pressure 100/77 mmHg Repeat ECG yesterday showed 2-1 heart block with left bundle branch block left anterior fascicular block Repeat ECG today shows AV disassociation with left bundle branch block left anterior fascicular block. 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 Heart rates machine 50-70 Possibilities for chronic myocarditis include consideration such as sarcoidosis Suggest I discussed this with the nurse practitioner and Dr. Cooney as well as the patient I explained to the patient that she would need a biventricular ICD for management of bradycardia, risk of SCD and cardio myopathy in the setting of left bundle branch block I explained to her that this device would improve her heart function and provide other mentioned benefits. She agrees to proceed Will schedule elective biventricular ICD for Saturday Avoid TVP prior to that as it could precipitate pacemaker dependency
[2020-02-06] MEDS: SODIUM CHLORIDE 0.9% 1,000 ML IV SCH (13:10)
[2020-02-06 18:25] LABS: Glucose,Whole Blood 122 mg/dL (75-99)
[2020-02-07 00:15] LABS: Glucose,Whole Blood 123 mg/dL (75-99)
[2020-02-07] MEDS: SODIUM CHLORIDE 0.9% 1,000 ML IV SCH (06:05)
[2020-02-07 06:06] LABS: Glucose,Whole Blood 133 mg/dL (75-99)
--- NOTE | 2020-02-07 07:50 | P.PN ---
Subjective 45-year-old female came in with compensative severe neck pain radiating to the shoulder and the arms with tingling and numbness in the fifth fingers in the left hand. Patient appears to have severe sepsis or cervical cephalalgia as well. Patient appears to have cervical degenerative disc disease. Although patient is found to have elevated troponins because of which patient underwent cardiac catheterization which did not show any significant occlusive disease that can explain the elevation of troponin and there was concern for stress-induced cardiomyopathy or takutsubo syndrome. Patient was also complaining of some diaphoresis shortness of breath and chest pain. Patient when questioned admits to significant stress anxiety and depression at home. Cardiology evaluated the patient and the there concerned about viral cardiomyopathy although patient denied any recent the viral illness or similar symptoms. 02/06/2020 Patient is euvolemic clinically not requiring any oxygen. IV fluids were discontinued. Patient was evaluated by pain management as cervical spine x-ray showing degenerative disease although mild patient is still complaining of severe nausea Maalox will be added. 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 02/07/2020 Patient is still complaining of nausea and dizziness and some shortness of breath patient SAT Down to 94%. IV Fluids Were Discontinued Chest X-Ray Will Be Obtained. Patient Blood Pressure Is Borderline and Fairly Okay. Patient Will Need a Biventricular AICD. Please Refer to Cardiology Documentation for Further Details. As per Cardiology Patient Is Not a Good Candidate for Emergency Transvenous Pacemaker. Constitutional: Denied any fatigue denied any fever. Cardio vascular: denied any chest pain, palpitations Gastrointestinal denied any vomiting Pulmonary: Denied any shortness of breath cough Neurologic denied any new focal deficits All inpatient medications were reviewed and appropriate changes in these medications as dictated in the interval history and assessment and plan. Objective - Vital Signs Vital signs: Vital Signs Temp 98.5 F 02/07/20 03:55 Pulse 64 02/07/20 03:55 Resp 17 02/07/20 03:55 BP 102/78 02/07/20 03:55 Pulse Ox 97 02/07/20 03:55 Intake & Output 02/06/20 02/07/20 02/07/20 18:59 06:59 18:59 Intake Total 270 745 Balance 270 745 Weight 164 kg Intake: IV 240 20 Invasive Line 1 30 Invasive Line 2 60 20 Sodium Chloride 0.9% 1, 150 000 ml @ 75 mls/hr IV . [id number] TIKI Rx#:[id number] Intake, IV Titration 525 Amount Sodium Chloride 0.9% 1, 525 000 ml @ 75 mls/hr IV . [id number] TIKI Rx#:[id number] Oral 30 200 Other: Voiding Method Bedside Commode # Voids 1 2 - Exam PHYSICAL EXAMINATION: GENERAL: The patient is alert and oriented x3, not in any acute distress. Obese HEENT: Pupils are round and equally reacting to light. EOMI. No scleral icterus. No conjunctival pallor. Normocephalic, atraumatic. No pharyngeal erythema. No thyromegaly. CARDIOVASCULAR: S1 and S2 present. No murmurs, rubs, or gallops. PULMONARY: Chest is clear to auscultation, no wheezing or crackles. ABDOMEN: Soft, nontender, nondistended, normoactive bowel sounds. No palpable organomegaly. MUSCULOSKELETAL: No joint swelling or deformity. EXTREMITIES: No cyanosis, clubbing, or pedal edema. NEUROLOGICAL: Gross neurological examination did not reveal any focal deficits. SKIN: No rashes. - Labs CBC & Chem 7: 02/06/20 07:25 02/05/20 05:19 Labs: Abnormal Lab Results - Last 24 Hours (Table) 02/06/20 02/06/20 02/07/20 Range/Units 07:25 18:22 00:12 POC Glucose (mg/dL) 122 H 123 H (75-99) mg/dL HDL Cholesterol 25 L (40-60) mg/dL 02/07/20 Range/Units 06:04 POC Glucose (mg/dL) 133 H (75-99) mg/dL HDL Cholesterol (40-60) mg/dL Assessment and Plan Plan: -Elevated troponins: Most probably secondary to viral myocarditis or stress- induced cardiomyopathy patient is status post cardiac catheterization no evidence of significant atherosclerotic occlusive disease. Patient has complete heart block as per cardiology and will need an biventricular AICD. Congestive heart failure chronic systolic dysfunction, not in acute exacerbation although patient is short of breath today we'll obtain a chest x-ray to make sure patient is not having any pulmonary edema -Neck pain with tingling and numbness in the hand will obtain an x-ray of the neck only showed mild degenerative disc disease. Pain management evaluated the patient. -Nausea probably secondary to gastritis or peptic ulcer disease continue with Protonix and Maalox will be continued -Depression, anxiety: Patient is on Cymbalta which is also helpful for peripheral neuropathy. 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 -DVT prophylaxis: Patient is presently on IV heparin.
[2020-02-07 08:11] LABS: Basophils # (A) 0.1 k/uL (0-0.2); Basophils % (A) 1 %; Eosinophils # (A) 0.1 k/uL (0-0.7); Eosinophils % (A) 1 %; HCT 41.1 % (34.0-46.0); HGB 14.1 gm/dL (11.4-16.0); Lymphocytes # (A) 1.8 k/uL (1.0-4.8); Lymphocytes % (A) 14 %; MCH 29.8 pg (25.0-35.0); MCHC 34.2 g/dL (31.0-37.0); MCV 87.1 fL (80.0-100.0); Mean Platelet Volume 8.7; Monocytes # (A) 0.8 k/uL (0-1.0); Monocytes % (A) 6 %; Neutrophils # (A) 9.8 k/uL (1.3-7.7); Neutrophils % (A) 78 %; Platelet Count 286 k/uL (150-450); RBC 4.71 m/uL (3.80-5.40); WBC 12.6 k/uL (3.8-10.6)
[2020-02-07 08:21] LABS: ALT 501 U/L (4-34); AST 397 U/L (14-36); African American GFR (CKD) >90 (>60 ml/min/1.73 sqM); Albumin 3.6 g/dL (3.5-5.0); Alkaline Phosphatase 76 U/L (38-126); Anion Gap 8 mmol/L; Blood Urea Nitrogen 32 mg/dL (7-17); Calcium 8.6 mg/dL (8.4-10.2); Carbon Dioxide 20 mmol/L (22-30); Chloride 102 mmol/L (98-107); Glucose 130 mg/dL (74-99); Magnesium 2.2 mg/dL (1.6-2.3); Non-African American GFR(CKD) 89 (>60 ml/min/1.73 sqM); Potassium 4.8 mmol/L (3.5-5.1); Sodium 130 mmol/L (137-145); Total Bilirubin 0.7 mg/dL (0.2-1.3); Total Protein 6.6 g/dL (6.3-8.2)
--- NOTE | 2020-02-07 08:25 | XR ---
EXAMINATION TYPE: XR chest 1V DATE OF EXAM: 02/07/2020 COMPARISON: 02/05/2020 HISTORY: Chest pain TECHNIQUE: Single frontal view of the chest is obtained. FINDINGS: There is no focal air space opacity, pleural effusion, or pneumothorax seen. The cardiac silhouette size is within normal limits. The osseous structures are intact. IMPRESSION: 1. No acute process.
[2020-02-07] MEDS ORDERED: METOCLOPRAMIDE 5 MG/ML 2 ML VIAL IVP PRN (08:44)
[2020-02-07] MEDS ORDERED: KETOROLAC 15 MG/ML 1 ML VIAL IVP PRN (09:08)
[2020-02-07] MEDS: MAG HYDROX/AL HYDROX/SIMETH 30 ML CUP PO SCH ×4 (09:26→22:51)
[2020-02-07] MEDS: DULoxetine HCL 20 MG CAPSULE.DR PO SCH (09:27)
[2020-02-07] MEDS: PANTOPRAZOLE 40 MG/10 ML VIAL IVP SCH ×2 (09:27→20:26)
[2020-02-07] MEDS: ONDANSETRON 4 MG/2 ML VIAL IVP PRN (09:27)
--- NOTE | 2020-02-07 11:56 | US ---
EXAMINATION TYPE: US abdomen limited DATE OF EXAM: 02/07/2020 COMPARISON: NONE CLINICAL HISTORY: Elevated liver enzymes. EXAM MEASUREMENTS: Liver Length: 19.7 cm Gallbladder Wall: Surgically absent CBD: 0.4 cm Right Kidney: 12.5 x 4.2 x 4.6 cm Pancreas: visualized portions wnl Liver: wnl Gallbladder: Surgically absent CBD: wnl Right Kidney: No hydronephrosis or masses seen Incidental note is made of right pleural effusion. IMPRESSION: All right-sided pleural effusion. Otherwise unremarkable study.
[2020-02-07 12:01] LABS: Glucose,Whole Blood 125 mg/dL (75-99)
[2020-02-07 12:49] LABS: INR 1.1 (<1.2); Partial Thromboplastin Time 22.7 sec (22.0-30.0); Prothrombin Time 11.7 sec (9.0-12.0)
--- NOTE | 2020-02-07 13:04 | P.CONS ---
History of Present Illness - Reason for Consult Consult date: 02/07/20 Elevated liver enzymes Requesting physician: Teddy Solano - Chief Complaint Chest pain - History of Present Illness 45-year-old female with a medical history significant for chronic back pain, osteoarthritis, cervical degenerative disc disease who presented to the hospital with chest pain. The patient has been evaluated by the cardiology service and cardiac catheterization was performed in the setting of elevated troponins with no significant occlusive disease noted concern is for stress-induced cardiomyopathy and plan is for a dual-chamber pacemaker and defibrillator placement. The GI service was consult as the patient was noted to have elevation in liver enzymes which were initially total bilirubin 0.4, alkaline phosphatase 75, AST 159, ALT 42 on presentation and increased to 0.7, 76, 396 and 561 respectively. On questioning the patient believes she may have been told of elevated liver enzymes in the past. No excessive alcohol use at this time however she has reported intermittent episodes of heavy alcohol use during her life. No IV drug use. No history of viral hepatitis. Ultrasound of the abdomen was ordered and significant for prior cholecystectomy with right-sided pleural effusion and no dilation of the CBD or hepatic disease noted. She re ports a remote history of colonoscopy in the past. Review of Systems REVIEW OF SYSTEMS: CONSTITUTIONAL: Denies any fevers, chills, weight change or fatigue. CARDIOVASCULAR: Denies any chest pain, palpitations high or low blood pressures, chest pain on presentation improved. RESPIRATORY: Denies any shortness of breath, hemoptysis or cough. GENITOURINARY: No dysuria or hematuria. MUSCULOSKELETAL: No weakness reported. SKIN: Denies any new rashes or lesions, jaundice or pallor. PSYCHIATRIC: Denies any depression or anxiety. NEUROLOGY: Denies headache, denies any new focal deficits. EARS/NOSE/THROAT: No recent hearing change, congestion, nasal discharge or sore throat. EYES: No pain in eyes, discharge or change in vision. GASTROINTESTINAL: As per HPI. Past Medical History Past Medical History: Seizure Disorder Additional Past Medical History / Comment(s): BACK PAIN, ARTHRITIS, low thyroid hormone History of Any Multi-Drug Resistant Organisms: None Reported Past Surgical History: Bariatric Surgery, Cholecystectomy, Orthopedic Surgery Additional Past Surgical History / Comment(s): LAP BAND, left foot Past Anesthesia/Blood Transfusion Reactions: No Reported Reaction, Motion Sickness Past Psychological History: Anxiety, Bipolar, Depression Additional Psychological History / Comment(s): Pt resides with her significant other. They have a dog. She states she does not have a drivers license. She uses the bus to get to appts. Smoking Status: Current every day smoker Past Alcohol Use History: None Reported Additional Past Alcohol Use History / Comment(s): Pt started smoking in 1989 and is a ppd smoker. She used to drink a bottle of wine a day but quit that years ago. Past Drug Use History: Marijuana Additional Drug Use History / Comment(s): Pt states she overused opiates in the past but no longer a problem for years. - Past Family History Father Family Medical History: Cancer Additional Family Medical History / Comment(s): Father of brain cancer at the age of 77yrs. Mother Additional Family Medical History / Comment(s): Mother of "heart problems" at the age of 62 yrs. Medications and Allergies Home Medications Medication Instructions Recorded Confirmed Type Mljtrya-Mqvi-Bvxz [id number] 2 tab PO Q4HR PRN 02/05/20 02/05/20 History [Excedrin] Butalb/APAP/Caff 50-325-40Mg 1 tab PO BID PRN 02/05/20 02/05/20 History [Fioricet 50-325-40] Ibuprofen [Motrin Ib] 600 mg PO Q8H PRN 02/05/20 02/05/20 History Ondansetron Odt [Zofran Odt] 4 mg PO BID PRN 02/05/20 02/05/20 History Allergies Allergy/AdvReac Type Severity Reaction Status Date / Time ketorolac tromethamine Allergy Rash/Hives Verified 02/05/20 07:51 [From Toradol] mushroom Allergy Unknown Verified 02/05/20 07:51 tramadol AdvReac SEIZURES Verified 02/05/20 07:51 Physical Exam Vitals: Vital Signs Temp Pulse Pulse Resp BP Pulse Ox 02/07/20 08:00 97.6 F 93 16 108/80 97 02/07/20 03:55 98.5 F 64 17 102/78 97 02/07/20 01:20 67 18 02/07/20 00:00 98.6 F 67 18 97/65 98 02/06/20 20:00 68 19 02/06/20 19:35 98.3 F 68 19 95/71 98 02/06/20 17:08 97.6 F 76 18 110/72 96 02/06/20 16:00 97.8 F 66 20 112/78 97 02/06/20 11:20 97.7 F 59 L 20 111/73 96 Intake and Output 02/06/20 02/07/20 02/07/20 22:59 06:59 14:59 Intake Total 10 735 10 Balance 10 735 10 Intake: IV 10 10 10 Invasive Line 2 10 10 10 Intake, IV Titration 525 Amount Sodium Chloride 0.9% 1, 525 000 ml @ 75 mls/hr IV . [id number] [facility] Rx#:[id number] Oral 200 Other: Voiding Method Bedside Commode Bedside Commode Bedpan # Voids 1 2 Weight 164 kg On physical examination, patient appears comfortable in no apparent distress. HEAD: Normocephalic, atraumatic. EYES: No scleral icterus. No conjunctival injection. MOUTH: No lesions, tongue midline. NECK: Trachea midline, no gross abnormalities. CHEST: Decreased air entry in all lung cartwright. HEART: Regular rate and rhythm. ABDOMEN: Soft, obese, nontender to palpation. Bowel sounds are positive. No organomegaly. No guarding or rigidity. EXTREMITIES: No pedal edema. SKIN: No rashes, no jaundice. NEUROLOGIC: Alert and oriented x3. No focal deficits. Results CBC & Chem 7: 02/07/20 07:21 02/07/20 07:21 Labs: Abnormal Lab Results - Last 24 Hours (Table) 02/06/20 02/07/20 02/07/20 Range/Units 18:22 00:12 06:04 WBC (3.8-10.6) k/uL Neutrophils # (1.3-7.7) k/uL Sodium (137-145) mmol/L Carbon Dioxide (22-30) mmol/L BUN (7-17) mg/dL Glucose (74-99) mg/dL POC Glucose (mg/dL) 122 H 123 H 133 H (75-99) mg/dL AST (14-36) U/L ALT (4-34) U/L 02/07/20 02/07/20 Range/Units 07:21 07:21 WBC 12.6 H (3.8-10.6) k/uL Neutrophils # 9.8 H (1.3-7.7) k/uL Sodium 130 L (137-145) mmol/L Carbon Dioxide 20 L (22-30) mmol/L BUN 32 H (7-17) mg/dL Glucose 130 H (74-99) mg/dL POC Glucose (mg/dL) (75-99) mg/dL AST 397 H (14-36) U/L ALT 501 H (4-34) U/L US - abdomen: report reviewed (Ultrasound of the abdomen with right sided pleural effusion noted, no CBD dilation or hepatic abnormalities noted.) Assessment and Plan (1) Elevated liver enzymes Narrative/Plan: 45-year-old female who presented to the hospital with complaints of chest pain with cardiac catheterization negative for significant cardiac atherosclerosis, the concern is for stress-induced cardiomyopathy with plan for biventricular pacemaker with defibrillator placement. Patient was noted to have mild elevation of liver enzymes on presentation which increased today with total bilirubin 0.7, alkaline phosphatase 76, AST 346 and ALT 561 predominantly in a hepatocellular pattern. She does report eating told of elevated liver enzymes in the past, she also reports intermittent periods of heavy alcohol use in the past but is currently not drinking alcohol. She denies any history of viral hepatitis, family history of liver disease or decompensated liver disease. Unclear etiology, likely related to medication effect given increase after presentation, cannot rule out a component of underlying liver disease in a patient who is obese and reported intermittent periods of heavy alcohol in the past, ultrasound of the abdomen negative for any intrahepatic liver disease with right-sided pleural effusion noted. Acute viral hepatitis panel will be ordered and if liver enzymes do not improve full liver serology will be ordered. Current Visit: Yes Status: Acute Code(s): R74.8 - ABNORMAL LEVELS OF OTHER SERUM ENZYMES SNOMED Code(s): 348309971 Plan: Supportive care Okay for diet Continue to monitor CBC, BMP, LFTs Acute viral hepatitis panel pending Ultrasound of the abdomen ordered and reviewed Continue to monitor liver enzymes and if no improvement for liver serology will be ordered No plan for endoscopic evaluation at this time Thank you for allowing us to participate in the care of the patient
[2020-02-07] MEDS ORDERED: LIDOCAINE 1% INJ 10MG/ML (20 ML MDV) ONE (14:03)
--- NOTE | 2020-02-07 15:13 | P.PN ---
Subjective Patient states that she is doing a little better this morning. Intermittently she has been nauseous with chest discomfort No dizziness no lightheadedness no shortness of breath no orthopnea no PND No respiratory distress This morning she change from left posterior fascicular block and left anterior fascicular block with improvement AV conduction. Yesterday for most part her heart rate was in the 50s and independently she would have episodes of accelerated idioventricular rhythm in the 70s to 90s Today her twelve-lead ECG is consistent with AV disassociation with accelerated idioventricular rhythm with a left bundle/left anterior fascicular block pattern On examination heart sounds S1 and S2 are soft Breath sounds are clear Abdomen is soft Extremities warm No JVD Labs are reviewed white count 12.6 thousand, lymphocyte count 1.8, neutrophil count 9.8 PT 11.7 Sodium 130, potassium 4.8, BUN 32 and creatinine 0.8 TSH 2.0 AST has increased to 397 from 159 and ALT has increased to 501 from 42 Her transaminitis explains her persistent nausea Twelve-lead ECG today was reviewed and shows an accelerated intraventricular rhythm left bundle left anterior fascicular block morphology with A-V dissociation and a heart rate about 90 beats a minute Impression Myocarditis with increased inflammatory markers of CRP and ESR Worsening transaminitis Normal chest x-ray Reduced LV systolic function with basal wall motion abnormalities 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 and A-V dissociation Yesterday she had episodes of third degree heart block with heart rates in the 50s normal perfusion normal blood pressure normal skin temperature and evidence of good perfusion Today she feels a bit better heart rates have been in the 90s since morning The nurse thought that she had taken a turn for the worse this morning and was transferring her to the ICU and spoke to who is ready to transfer her but had not seen and evaluated the patient nor had he see the telemetry strips on the ECG However when I went to see her in the morning the patient said she actually felt a bit better than yesterday Heart rates had increased to 90 beats a minute which was an improvement from a heart rate of 55 beats a minute, yesterday The nurse also held Zofran because she stated that it QT see was prolonged. When I reviewed the ECG her QTC was 427 beats in the computer read which is normal for one I told the nurse that the normal for a woman is 470 seconds with a narrow QRS and up to even 500 ms for a wide QRS and therefore the patient may receive Zofran and nausea medications on a when necessary basis This morning I spoke to Dr. Purvis and explained that her AV conduction had shown improvement however heart transaminases had risen significantly I also spoke to Dr. Coreas and asked him to evaluate the patient We stopped statins and has just been started but is quite likely that the transaminitis is associated with the inflammatory state and resulting in nausea Her chest discomfort is likely from myocarditis The admitting physician agreed that there was no reason for transfer to the ICU and that it was completely unnecessary from medical standpoint I canceled her biventricular ICD implant and contemplated implantation of an externalized pacemaker in case of any further changes However and I reevaluated the patient again at 2 PM the telemetry showed that her heart rates remained in the 80s ever since I first saw her in the morning and the AV conduction is actually improving Yesterday she had brief spells when her AV conduction would improve Today this is sustained Therefore after much deliberation and taking into consideration the pros and cons of externalized RV pacing I spoke to the patient again and recommended that we hold off on any procedure at all Antibody titers are pending him a angiotensin converting enzyme levels are pending I plan to get a 2-D echo and Doppler study, limited tomorrow to see if there is improvement in LV function I have canceled the externalized pacemaker implant Avenue canceled the biventricular ICD implant At this time we will simply follow the patient on telemetry, cardiac unit There is no indication for transfer to the ICU with or without an externalized pacemaker Objective - Vital Signs Vital signs: Vital Signs Temp 97.6 F 02/07/20 08:00 Pulse 99 02/07/20 12:30 Resp 16 02/07/20 13:30 BP 114/77 02/07/20 12:30 Pulse Ox 96 02/07/20 12:30 Intake & Output 02/06/20 02/07/20 02/07/20 18:59 06:59 18:59 Intake Total 270 745 115 Balance 270 745 115 Weight 164 kg Intake: IV 240 20 115 Invasive Line 1 30 Invasive Line 2 60 20 20 Invasive Line 3 20 Sodium Chloride 0.9% 1, 150 75 000 ml @ 75 mls/hr IV . [id number] [facility] Rx#:[id number] Intake, IV Titration 525 Amount Sodium Chloride 0.9% 1, 525 000 ml @ 75 mls/hr IV . [id number] [facility] Rx#:[id number] Oral 30 200 0 Other: Voiding Method Bedside Commode Bedpan # Voids 1 2 2 - Labs CBC & Chem 7: 02/07/20 07:21 02/07/20 07:21 Labs: Abnormal Lab Results - Last 24 Hours (Table) 02/06/20 02/07/20 02/07/20 Range/Units 18:22 00:12 06:04 WBC (3.8-10.6) k/uL Neutrophils # (1.3-7.7) k/uL Sodium (137-145) mmol/L Carbon Dioxide (22-30) mmol/L BUN (7-17) mg/dL Glucose (74-99) mg/dL POC Glucose (mg/dL) 122 H 123 H 133 H (75-99) mg/dL AST (14-36) U/L ALT (4-34) U/L 02/07/20 02/07/20 02/07/20 Range/Units 07:21 07:21 12:00 WBC 12.6 H (3.8-10.6) k/uL Neutrophils # 9.8 H (1.3-7.7) k/uL Sodium 130 L (137-145) mmol/L Carbon Dioxide 20 L (22-30) mmol/L BUN 32 H (7-17) mg/dL Glucose 130 H (74-99) mg/dL POC Glucose (mg/dL) 125 H (75-99) mg/dL AST 397 H (14-36) U/L ALT 501 H (4-34) U/L
--- NOTE | 2020-02-07 16:08 | P.CNPUL ---
History of Present Illness Consult date: 02/07/20 Requesting physician: Chaim Cooney Reason for consult: other (Acute myocarditis.) Chief complaint: Intermittent chest pain with nausea and diaphoresis as well as shortness of History of present illness: This is a 45-year-old female with history of obesity, previous gastric bypass surgery, [id number] smoking history, marijuana abuse, patient was admitted on 02/05/20, mostly with intermittent episodes of chest pains, for the last 4 days prior to admission, been complaining of diaphoresis, intermittent nausea and vomiting, and vague shortness of breath. Described the pain as substernal, described as I pressed and heaviness in the chest and associated with diaphoresis. Patient was seen by cardiology and she was felt to have non-ST elevation myocardial infarction she was also noted to have ventricular rhythm with A-V dissociation, with left bundle branch block-type morphology. Hence the patient was kept on aspirin and heparin, patient underwent cardiac catheterization and 2-D echocardiogram. Patient was found to have relatively normal coronary arteries but severe LV dysfunction on the echocardiogram, and the executive receptionist raised the possibility of Takustubo syndrome. The echocardiogram showed severe LV dysfunction with ejection fraction of 30-35%. In the last 2 days, patient had a sudden increase in her transaminases, her AST went up to 346 and ALT went up to 561, ultrasound of the abdomen showed no evidence of intrahepatic liver disease. Her liver enzymes are being addressed by gastroenterology. The executive receptionist was concerned about the possibility of sarcoidosis, however her chest x-ray has no findings to suggest sarcoidosis whatsoever. I believe the findings are mostly findings of myocarditis, LV dysfunction, and hepatic congestion with significant elevation in liver enzymes. Gastroenterology was consulted. This is most likely a picture of viral yuri carditis. During my evaluation, patient had no significant pulmonary symptoms, she had no cough, no wheezing, and she had minimal shortness of breath which seems to be relatively chronic. Review of Systems CONSTITUTIONAL: Denies fever or chills. CARDIOVASCULAR: +chest pain, +shortness of breath, no orthopnea, PND or palpitations. RESPIRATORY: Denies cough. GASTROINTESTINAL: Denies abdominal pain, diarrhea, constipation, +nausea no vomiting. MUSCULOSKELETAL: Denies myalgias. NEUROLOGIC: Denies numbness, tingling or weakness. ENDOCRINE: Denies fatigue, weight change, polydipsia or polyurina. GENITOURINARY: Denies burning, hematuria or urgency with micturation. HEMATOLOGIC: Denies history of anemia or bleeding. Past Medical History Past Medical History: Seizure Disorder Additional Past Medical History / Comment(s): BACK PAIN, ARTHRITIS, low thyroid hormone History of Any Multi-Drug Resistant Organisms: None Reported Past Surgical History: Bariatric Surgery, Cholecystectomy, Orthopedic Surgery Additional Past Surgical History / Comment(s): LAP BAND, left foot Past Anesthesia/Blood Transfusion Reactions: No Reported Reaction, Motion Sickness Past Psychological History: Anxiety, Bipolar, Depression Additional Psychological History / Comment(s): Pt resides with her significant other. They have a dog. She states she does not have a drivers license. She [place] bus [place] [employer]. Smoking Status: Current every day smoker Past Alcohol Use History: None Reported Additional Past Alcohol Use History / Comment(s): Pt started smoking in 1989 and is a ppd smoker. She used to drink a bottle of wine a day but quit that years ago. Past Drug Use History: Marijuana Additional Drug Use History / Comment(s): Pt states she overused opiates in the past but no longer a problem for years. - Past Family History Father Family Medical History: Cancer Additional Family Medical History / Comment(s): Father of brain cancer at the age of 77yrs. Mother Additional Family Medical History / Comment(s): Mother of "heart problems" at the age of 62 yrs. Medications and Allergies Home Medications Medication Instructions Recorded Confirmed Type Qmlevpk-Jqor-Wcge [id number] 2 tab PO Q4HR PRN 02/05/20 02/05/20 History [Excedrin] Butalb/APAP/Caff 50-325-40Mg 1 tab PO BID PRN 02/05/20 02/05/20 History [Fioricet 50-325-40] Ibuprofen [Motrin Ib] 600 mg PO Q8H PRN 02/05/20 02/05/20 History Ondansetron Odt [Zofran Odt] 4 mg PO BID PRN 02/05/20 02/05/20 History Allergies Allergy/AdvReac Type Severity Reaction Status Date / Time ketorolac tromethamine Allergy Rash/Hives Verified 02/05/20 07:51 [From Toradol] mushroom Allergy Unknown Verified 02/05/20 07:51 tramadol AdvReac SEIZURES Verified 02/05/20 07:51 Physical Exam Vitals: Vital Signs Temp Pulse Pulse Resp BP Pulse Ox 02/07/20 13:30 16 02/07/20 12:30 99 16 114/77 96 02/07/20 08:00 97.6 F 93 16 108/80 97 02/07/20 03:55 98.5 F 64 17 102/78 97 02/07/20 01:20 67 18 02/07/20 00:00 98.6 F 67 18 97/65 98 02/06/20 20:00 68 19 02/06/20 19:35 98.3 F 68 19 95/71 98 02/06/20 17:08 97.6 F 76 18 110/72 96 02/06/20 16:00 97.8 F 66 20 112/78 97 Intake and Output 02/07/20 02/07/20 02/07/20 06:59 14:59 22:59 Intake Total 735 115 Balance 735 115 Intake: IV 10 115 Invasive Line 2 10 20 Invasive Line 3 20 Sodium Chloride 0.9% 1, 75 000 ml @ 75 mls/hr IV . [id number] [facility] Rx#:[id number] Intake, IV Titration 525 Amount Sodium Chloride 0.9% 1, 525 000 ml @ 75 mls/hr IV . [id number] [facility] Rx#:[id number] Oral 200 0 Other: Voiding Method Bedside Commode Bedpan # Voids 2 2 2 Weight 164 kg Physical Exam: Revealed a 45-year-old female, in no form of respiratory distress, she is on room air. Head: Atraumatic, normocephalic. HEENT:[Neck is supple.] [No neck masses.] [No thyromegaly.] [No JVD.] Chest: [Clear throughout, no crackles, no rhonchi, no wheezes.] No chest wall tenderness, symmetrical chest expansion. Cardiac Exam: [Normal S1 and S2, no S3 gallop, no murmur.] Abdomen: Obese, [Soft, nontender, no megaly, no rebound, no guarding, normal bowel sounds.] Extremities: [No clubbing, trace of edema edema, no cyanosis.] Neurological Exam: [No focal neurologic deficit.] Alert oriented 3. Psychiatric: Normal mood, affect and normal mental status examination. Skin: No rashes. Results - Laboratory Findings CBC and BMP: 02/07/20 07:21 02/07/20 07:21 PT/INR, D-dimer PT 11.7 sec (9.0-12.0) 02/07/20 11:30 INR 1.1 (<1.2) 02/07/20 11:30 Abnormal lab findings: Abnormal Labs 02/05/20 02/05/20 02/05/20 05:19 05:19 07:46 WBC Neutrophils # ESR Sodium 134 L Carbon Dioxide 19 L BUN 36 H Glucose 137 H POC Glucose (mg/dL) 123 H AST 159 H ALT 42 H Creatine Kinase 888 H CK-MB (CK-2) 53.4 H Troponin I 30.700 H* C-Reactive Protein HDL Cholesterol Urine Opiates Screen U Marijuana (THC) Screen 02/05/20 02/05/20 02/05/20 07:48 11:14 11:14 WBC Neutrophils # ESR 28 H Sodium Carbon Dioxide BUN Glucose POC Glucose (mg/dL) AST ALT Creatine Kinase CK-MB (CK-2) Troponin I 22.700 H* 24.300 H* C-Reactive Protein HDL Cholesterol Urine Opiates Screen U Marijuana (THC) Screen 02/05/20 02/05/20 02/06/20 11:14 11:49 01:14 WBC Neutrophils # ESR Sodium Carbon Dioxide BUN Glucose POC Glucose (mg/dL) 128 H AST ALT Creatine Kinase CK-MB (CK-2) Troponin I C-Reactive Protein 19.8 H HDL Cholesterol Urine Opiates Screen Detected H U Marijuana (THC) Screen Detected H 02/06/20 02/06/20 02/07/20 07:25 18:22 00:12 WBC Neutrophils # ESR Sodium Carbon Dioxide BUN Glucose POC Glucose (mg/dL) 122 H 123 H AST ALT Creatine Kinase CK-MB (CK-2) Troponin I C-Reactive Protein HDL Cholesterol 25 L Urine Opiates Screen U Marijuana (THC) Screen 02/07/20 02/07/20 02/07/20 06:04 07:21 07:21 WBC 12.6 H Neutrophils # 9.8 H ESR Sodium 130 L Carbon Dioxide 20 L BUN 32 H Glucose 130 H POC Glucose (mg/dL) 133 H AST 397 H ALT 501 H Creatine Kinase CK-MB (CK-2) Troponin I C-Reactive Protein HDL Cholesterol Urine Opiates Screen U Marijuana (THC) Screen 02/07/20 12:00 WBC Neutrophils # ESR Sodium Carbon Dioxide BUN Glucose POC Glucose (mg/dL) 125 H AST ALT Creatine Kinase CK-MB (CK-2) Troponin I C-Reactive Protein HDL Cholesterol Urine Opiates Screen U Marijuana (THC) Screen - Diagnostic Findings Chest x-ray: image reviewed (Chest x-ray was reviewed basically unremarkable. ) Additional studies: Echocardiogram as noted in HPI. Cardiac catheterization report as noted in HPI. Assessment and Plan Assessment: Impression: Acute myocarditis, possibly viral, possible takustubo syndrome. Elevated liver enzymes, suspect congestive hepatopathy, doubt viral etiology. Could also be related to medications. No evidence of findings on the chest x-ray to suggest sarcoidosis. Clinically this is not in my differential. Severe LV dysfunction 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 and AV dissociation, patient had episodes of third-degree AV block. Recommendation: Continue present treatment plan as per cardiology. Continue to monitor liver enzymes. No active pulmonary issues at this point. GI to evaluate for elevated transaminases. We'll continue to follow. Monitor patient for possible worsening shortness of breath and pulmonary edema considering her severe LV dysfunction. Repeat chest x-ray in a.m. Time with Patient: Greater than 30
[2020-02-07 16:35] LABS: ALT 554 U/L (4-34); AST 407 U/L (14-36); African American GFR (CKD) >90 (>60 ml/min/1.73 sqM); Albumin 3.7 g/dL (3.5-5.0); Alkaline Phosphatase 74 U/L (38-126); Anion Gap 5 mmol/L; Blood Urea Nitrogen 33 mg/dL (7-17); Calcium 8.7 mg/dL (8.4-10.2); Carbon Dioxide 18 mmol/L (22-30); Chloride 105 mmol/L (98-107); Glucose 125 mg/dL (74-99); Non-African American GFR(CKD) >90 (>60 ml/min/1.73 sqM); Sodium 128 mmol/L (137-145); Total Bilirubin 0.8 mg/dL (0.2-1.3); Total Protein 7.2 g/dL (6.3-8.2)
[2020-02-07 16:41] LABS: Potassium 5.5 mmol/L (3.5-5.1)
[2020-02-07 17:41] LABS: Glucose,Whole Blood 120 mg/dL (75-99)
[2020-02-07 18:46] LABS: Hepatitis A Antibody IgM Non-Reactive (Non-Reactive); Hepatitis B Core IgM Non-Reactive (Non-Reactive); Hepatitis B Surface Antigen Non-Reactive (Non-Reactive); Hepatitis C IgG Antibody Non-Reactive (Non-Reactive)
[2020-02-07] MEDS ORDERED: DEXTROSE 50% SYRINGE 50 ML IVP STA (18:47)
[2020-02-07] MEDS ORDERED: INSULIN REGULAR 100 UNIT/ML VIAL IV ONE (18:47)
[2020-02-07 19:35] LABS: Glucose,Whole Blood 118 mg/dL (75-99)
[2020-02-08 00:36] LABS: Glucose,Whole Blood 126 mg/dL (75-99)
[2020-02-08] MEDS: MORPHINE SULFATE 4 MG/ML SYRINGE IVP PRN ×4 (02:17→20:44)
[2020-02-08] MEDS: ONDANSETRON 4 MG/2 ML VIAL IVP PRN (02:18)
[2020-02-08] MEDS ORDERED: ceFAZolin 1,000 MG in SODIUM CHLORIDE 0.9% IRRIGATIO 250 ML IRRIGATION ONE (06:00)
[2020-02-08 06:25] LABS: Glucose,Whole Blood 135 mg/dL (75-99)
--- NOTE | 2020-02-08 07:29 | XR ---
EXAMINATION TYPE: XR chest 1V portable DATE OF EXAM: 02/08/2020 COMPARISON: 02/07/2020 HISTORY: Chest pain TECHNIQUE: Single frontal view of the chest is obtained. FINDINGS: There is no focal air space opacity, pleural effusion, or pneumothorax seen. The cardiac silhouette size is within normal limits. The osseous structures are intact. IMPRESSION: 1. No acute process.
--- NOTE | 2020-02-08 08:36 | P.PN ---
Subjective 45-year-old female came in with compensative severe neck pain radiating to the shoulder and the arms with tingling and numbness in the fifth fingers in the left hand. Patient appears to have severe sepsis or cervical cephalalgia as well. Patient appears to have cervical degenerative disc disease. Although patient is found to have elevated troponins because of which patient underwent cardiac catheterization which did not show any significant occlusive disease that can explain the elevation of troponin and there was concern for stress-induced cardiomyopathy or takutsubo syndrome. Patient was also complaining of some diaphoresis shortness of breath and chest pain. Patient when questioned admits to significant stress anxiety and depression at home. Cardiology evaluated the patient and the there concerned about viral cardiomyopathy although patient denied any recent the viral illness or similar symptoms. 02/06/2020 Patient is euvolemic clinically not requiring any oxygen. IV fluids were discontinued. Patient was evaluated by pain management as cervical spine x-ray showing degenerative disease although mild patient is still complaining of severe nausea Maalox will be added. 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 02/07/2020 Patient is still complaining of nausea and dizziness and some shortness of breath patient SAT Down to 94%. IV Fluids Were Discontinued Chest X-Ray Will Be Obtained. Patient Blood Pressure Is Borderline and Fairly Okay. Patient Will Need a Biventricular AICD. Please Refer to Cardiology Documentation for Further Details. As per Cardiology Patient Is Not a Good Candidate for Emergency Transvenous Pacemaker. 02/08/2020 Patient is still diaphoretic still complaining of nausea because of her elevated the liver enzymes patient is off Regent present is presently getting morphine patient is an not undergoing any pacemaker placement at this time cardiology will reevaluate and the will decide on further plans. Patient is bit hyponatremic but patient is not failure will just monitor the serum sodium will order hyponatremia labs including floral designer cortisol, urine and serum osmolality urine random sodium. Patient already had a TSH which was within normal limits. If her sodium continues to go down then patient may need to be evaluated by nephrology patient doesn't appear to be hypovolemic will fluid restrict her to 1500 mL per day Constitutional: Denied any fatigue denied any fever. Cardio vascular: denied any chest pain, palpitations Gastrointestinal denied any vomiting Pulmonary: Denied any shortness of breath cough Neurologic denied any new focal deficits All inpatient medications were reviewed and appropriate changes in these medications as dictated in the interval history and assessment and plan. Objective - Vital Signs Vital signs: Vital Signs Temp 97.6 F 02/08/20 04:00 Pulse 72 02/08/20 04:00 Resp 16 02/08/20 04:00 BP 112/73 02/08/20 04:00 Pulse Ox 98 02/08/20 04:00 Intake & Output 02/07/20 02/08/20 02/08/20 18:59 06:59 18:59 Intake Total 115 110 Output Total 400 Balance 115 -290 Weight 163 kg Intake: IV 115 10 Invasive Line 2 20 10 Invasive Line 3 20 Sodium Chloride 0.9% 1, 75 000 ml @ 75 mls/hr IV . [id number] [facility] Rx#:[id number] Intake, IV Titration 100 Amount ceFAZolin 2 gm In Sodium 100 Chloride 0.9% 50 ml @ 100 mls/hr IVPB ONCE PRN Rx# :[id number] Oral 0 Output: Urine 400 Other: Voiding Method Bedpan Bedpan # Voids 2 1 - Exam PHYSICAL EXAMINATION: GENERAL: The patient is alert and oriented x3, not in any acute distress. Obese is significantly diaphoretic HEENT: Pupils are round and equally reacting to light. EOMI. No scleral icterus. No conjunctival pallor. Normocephalic, atraumatic. No pharyngeal erythema. No thyromegaly. CARDIOVASCULAR: S1 and S2 present. No murmurs, rubs, or gallops. PULMONARY: Chest is clear to auscultation, no wheezing or crackles. ABDOMEN: Soft, nontender, nondistended, normoactive bowel sounds. No palpable organomegaly. MUSCULOSKELETAL: No joint swelling or deformity. EXTREMITIES: No cyanosis, clubbing, or pedal edema. NEUROLOGICAL: Gross neurological examination did not reveal any focal deficits. SKIN: No rashes. - Labs CBC & Chem 7: 02/07/20 07:21 02/07/20 17:13 Labs: Abnormal Lab Results - Last 24 Hours (Table) 02/07/20 02/07/20 02/07/20 Range/Units 12:00 15:59 17:13 Sodium 128 L (137-145) mmol/L Potassium 5.5 H 5.4 H (3.5-5.1) mmol/L Carbon Dioxide 18 L (22-30) mmol/L BUN 33 H (7-17) mg/dL Glucose 125 H (74-99) mg/dL POC Glucose (mg/dL) 125 H (75-99) mg/dL AST 407 H (14-36) U/L ALT 554 H (4-34) U/L 02/07/20 02/07/20 02/08/20 Range/Units 17:37 19:16 00:34 Sodium (137-145) mmol/L Potassium (3.5-5.1) mmol/L Carbon Dioxide (22-30) mmol/L BUN (7-17) mg/dL Glucose (74-99) mg/dL POC Glucose (mg/dL) 120 H 118 H 126 H (75-99) mg/dL AST (14-36) U/L ALT (4-34) U/L 02/08/20 Range/Units 06:09 Sodium (137-145) mmol/L Potassium (3.5-5.1) mmol/L Carbon Dioxide (22-30) mmol/L BUN (7-17) mg/dL Glucose (74-99) mg/dL POC Glucose (mg/dL) 135 H (75-99) mg/dL AST (14-36) U/L ALT (4-34) U/L Assessment and Plan Plan: -Elevated troponins: Most probably secondary to viral myocarditis or stress- induced cardiomyopathy patient is status post cardiac catheterization no evidence of significant atherosclerotic occlusive disease. Patient has complete heart block as per cardiology and will need an biventricular AICD. -Hyponatremia appeared to be euvolemic hyponatremia evaluation as mentioned above. Fluid restriction to 1500 mL Congestive heart failure chronic systolic dysfunction, not in acute exacerbation and clinically is not in heart failure exacerbation at this time 1 elevated liver enzymes: Regent was discontinued and etiology is not clear patient doesn't have any evidence of heart failure exacerbation gastroenterology was consulted. -Neck pain with tingling and numbness in the hand will obtain an x-ray of the neck only showed mild degenerative disc disease. Pain management evaluated the patient. -Nausea probably secondary to gastritis or peptic ulcer disease continue with P rotonix and Maalox will be continued -Depression, anxiety: Patient is on Cymbalta which is also helpful for peripheral neuropathy. 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 -DVT prophylaxis: Patient is presently on IV heparin.
[2020-02-08 10:15] LABS: Calcium 8.9 mg/dL (8.4-10.2); Potassium 5.7 mmol/L (3.5-5.1); Total Bilirubin 1.3 mg/dL (0.2-1.3); Total Protein 7.2 g/dL (6.3-8.2)
[2020-02-08] MEDS ORDERED: DEXTROSE/WATER 1 250ML.BAG with DOPamine DRIP 800 MG IV SCH (10:30)
[2020-02-08] MEDS: PANTOPRAZOLE 40 MG/10 ML VIAL IVP SCH ×2 (10:35→20:43)
[2020-02-08] MEDS ORDERED: ONDANSETRON 4 MG/2 ML VIAL ONE (10:53)
[2020-02-08] MEDS ORDERED: MIDAZOLAM 2 MG/2 ML VIAL ONE (10:53)
[2020-02-08] MEDS ORDERED: PHENYLEPHRINE 10 MG/ML VIAL ONE (10:53)
[2020-02-08] MEDS ORDERED: IV FLUID CONTINUATION 1,000 ML IV ONE (10:53)
[2020-02-08] MEDS ORDERED: FUROSEMIDE 10 MG/ML 4 ML VIAL IV STA (11:06)
[2020-02-08] MEDS ORDERED: ceFAZolin 1,000 MG in SODIUM CHLORIDE 0.9% IRRIGATIO 250 ML IRRIGATION STA (11:07)
[2020-02-08] MEDS: MAG HYDROX/AL HYDROX/SIMETH 30 ML CUP PO SCH ×4 (11:14→20:43)
[2020-02-08] MEDS ORDERED: IOPAMIDOL-370 50ML BTL INJ ONE (11:18)
[2020-02-08] MEDS ORDERED: SODIUM CHLORIDE 0.9% 1,000 ML IV ONE (11:24)
[2020-02-08] MEDS: LIDOCAINE 1% INJ 10MG/ML (20 ML MDV) SQ ONE ×2 (11:26→11:49)
--- NOTE | 2020-02-08 12:27 | P.PN ---
Subjective Progress Note Date: 02/08/20 Principal diagnosis: Elevated liver enzymes The patient is a 45-year-old white female who presented to the hospital with chest pain. She has been closely followed by cardiology and underwent a cardiac catheterization for elevated troponins with no significant occlusive disease noted. There is concern for cardiomyopathy and myocarditis. She is scheduled today for a pacemaker, according to the nurse she was currently in third degree heart block. The patient is stating she is having chest pain as well as abdominal pain. Her hepatitis panel was negative. Today's repeat labs bilirubin 1.3, alkaline phosphatase 85 AST 996, ALT 1255. Objective - Vital Signs Vital signs: Vital Signs Temp 97.5 F L 02/08/20 09:13 Pulse 46 L 02/08/20 09:13 Resp 18 02/08/20 09:13 BP 112/73 02/08/20 04:00 Pulse Ox 98 02/08/20 09:13 Intake & Output 02/07/20 02/08/20 02/08/20 18:59 06:59 18:59 Intake Total 115 110 50 Output Total 400 Balance 115 -290 50 Weight 163 kg Intake: IV 115 10 50 Invasive Line 2 20 10 Invasive Line 3 20 Sodium Chloride 0.9% 1, 75 000 ml @ 75 mls/hr IV . [id number] [facility] Rx#:[id number] Intake, IV Titration 100 Amount ceFAZolin 2 gm In Sodium 100 Chloride 0.9% 50 ml @ 100 mls/hr IVPB ONCE PRN Rx# :[id number] Oral 0 Output: Urine 400 Other: Voiding Method Bedpan Bedpan # Voids 2 1 - Exam General appearance: The patient is alert, oriented, in no acute distress. HET: Head is normocephalic and atraumatic. Conjunctiva pink. Sclera anicteric. Neck: Supple without lymphadenopathy. Abdomen: Soft, nontender, nondistended with bowel sounds. No guarding or rigidity. Extremities: Normal skin color and turgor. No pedal edema Neurological: No focal deficits. Alert and oriented 3. - Labs CBC & Chem 7: 02/07/20 07:21 02/08/20 08:38 Labs: Abnormal Lab Results - Last 24 Hours (Table) 02/07/20 02/07/20 02/07/20 Range/Units 15:59 17:13 17:37 Sodium 128 L (137-145) mmol/L Potassium 5.5 H 5.4 H (3.5-5.1) mmol/L Carbon Dioxide 18 L (22-30) mmol/L BUN 33 H (7-17) mg/dL Creatinine (0.52-1.04) mg/dL Glucose 125 H (74-99) mg/dL POC Glucose (mg/dL) 120 H (75-99) mg/dL AST 407 H (14-36) U/L ALT 554 H (4-34) U/L 02/07/20 02/08/20 02/08/20 Range/Units 19:16 00:34 06:09 Sodium (137-145) mmol/L Potassium (3.5-5.1) mmol/L Carbon Dioxide (22-30) mmol/L BUN (7-17) mg/dL Creatinine (0.52-1.04) mg/dL Glucose (74-99) mg/dL POC Glucose (mg/dL) 118 H 126 H 135 H (75-99) mg/dL AST (14-36) U/L ALT (4-34) U/L 02/08/20 Range/Units 08:38 Sodium 128 L (137-145) mmol/L Potassium 5.7 H (3.5-5.1) mmol/L Carbon Dioxide 19 L (22-30) mmol/L BUN 42 H (7-17) mg/dL Creatinine 1.09 H (0.52-1.04) mg/dL Glucose 113 H (74-99) mg/dL POC Glucose (mg/dL) (75-99) mg/dL AST 996 H (14-36) U/L ALT 1255 H (4-34) U/L Assessment and Plan (1) Elevated liver enzymes Narrative/Plan: 45-year-old female who presented to the hospital with complaints of chest pain with cardiac catheterization negative for significant cardiac atherosclerosis, the concern is for stress-induced cardiomyopathy with plan for biventricular pacemaker with defibrillator placement. Patient was noted to have mild elevation of liver enzymes on presentation which increased today with total bilirubin 0.7, alkaline phosphatase 76, AST 346 and ALT 561 predominantly in a hepatocellular pattern. She does report eating told of elevated liver enzymes in the past, she also reports intermittent periods of heavy alcohol use in the past but is currently not drinking alcohol. She denies any history of viral hepatitis, family history of liver disease or decompensated liver disease. Unclear etiology, likely related to medication effect given increase after presentation, cannot rule out a component of underlying liver disease in a patient who is obese and reported intermittent periods of heavy alcohol in the past, ultrasound of the abdomen negative for any intrahepatic liver disease with right-sided pleural effusion noted. Acute viral hepatitis panel ordered and is negative, full liver serology ordered. Will also order Yuko-Pedroza virus panel and cytomegalovirus. Elevation in liver enzymes and nausea likely related to ischemic hepatitis due to hypoperfusion. Current Visit: Yes Status: Acute Code(s): R74.8 - ABNORMAL LEVELS OF OTHER SERUM ENZYMES SNOMED Code(s): 865976723 Plan: Supportive care Okay for diet Antiemetics as needed Continue to monitor daily CBC, BMP, LFTs Acute viral hepatitis panel ordered and negative Ultrasound of the abdomen ordered and reviewed Full liver serology, EBV panel and CMV ordered No plan for endoscopic evaluation at this time Thank you for this consultation, we will continue to follow closely. Dr. Nay Bartlett I agree with the dictator's note, documented as a scribe by Lita Ernst.
[2020-02-08] MEDS ORDERED: SODIUM POLYSTYRENE SULFONATE 15 GM/60 ML BOTTLE PO STA (12:31)
--- NOTE | 2020-02-08 13:03 | P.PCN ---
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 Written informed consent was obtained prior to the procedure. The right groin was prepped and draped as a protocol. A 6-Maltese sheath was placed in the right femoral vein. Via this, a temporary pacing catheter was placed in the right ventricle. Thresholds were interrogated. Temporary pacing was performed through the rest of the procedure. At the end of the entire procedure, the TVP was removed. The sheath was removed and hemostasis was assured. Patient tolerated the procedure well without any acute complications. Procedure performed Transvenous temporary pacing The template pacemaker catheter was then removed after implantation of an externalized pacemaker and the venous sheath was removed Hemostasis assured
--- NOTE | 2020-02-08 13:15 | P.EPPROC ---
- EP Procedure Note Electrophysiology Procedure Note: Procedure Externalized pacemaker implantation right side Indication Bradycardia secondary to infrahisian disease/intermittent third-degree heart block Patient evaluation prior to proceeding with implant Patient's mean blood pressure 85 mmHg Heart rates were in the 80s, accelerated ventricular rhythm, left bundle branch block pattern Alternating left fascicular blocks noted Patient able to lie supine without any shortness of breath orthopnea Later then the femoral venous sheaths and the right axillary venous sheaths were placed in the venous pressures did NOT seem elevated Labs are reviewed sodium 128, potassium 5.7, creatinine 1.09 Worsening AST and ALT but renal function better preserved at 1.09 TSH 37 Coronavirus PCR, undetectable Nonreactive for hepatitis A, hepatitis B and hepatitis C Patient alert and oriented. I spoke to her and she is ready to proceed with the implant Procedure details The right pectoral area was prepped and draped as a protocol. IV antibiotics administered. Local anesthesia administered. The right axillary vein was accessed and a sheath was placed. A [employer] medical screw-in lead was positioned in the RV apex and screwed in Excellent thresholds and sensing Bidgood current of injury then we'll test is negative Threshold 0.5 V at 1 ms, sensing 9.5 mV and pacing impedance 790 ohms Programmed VVI 60 bpm, output 5 V at 1 ms The venous sheath was removed and the lead was secured to the skin and then connected to a permanent pacemaker generator. The pacemaker generator was then secured to the skin Dressing applied Patient tolerated the procedure well without any acute complications Impression Externalized permanent pacemaker implantation, successful Plan Continue IV antibiotics Kefzol 1 g IV every 8 hourly Patient has active myocarditis Coved 19 antibody pending Viral titers for other viral etiologies pending Angiotensin converting enzyme levels pending Once the acute phase is over then based upon the LV function and conduction system abnormality further recommendations will be made regarding heart rhythm device implant
--- NOTE | 2020-02-08 14:31 | XR ---
EXAMINATION TYPE: XR chest 1V portable DATE OF EXAM: 02/08/2020 COMPARISON: 02/08/2020 HISTORY: Chest pain TECHNIQUE: Single frontal view of the chest is obtained. FINDINGS: There is no focal air space opacity, pleural effusion, or pneumothorax seen. The cardiac silhouette size is within normal limits. The osseous structures are intact. IMPRESSION: 1. No acute process.
[2020-02-08 14:55] LABS: Parvovirus B-19 IgG Antibodies 0.38 INDEX (<=0.90); Parvovirus B-19 IgM Antibodies 0.32 INDEX (<=0.90)
--- NOTE | 2020-02-08 16:10 | PN ---
PROGRESS NOTE PULMONARY/CRITICAL CARE PROGRESS NOTE: DATE OF SERVICE: 02/08/2020 A 45-year-old female seen by my partner yesterday. She came into the hospital with complaints of intermittent chest pain, nausea, diaphoresis, and shortness of breath. She has a history of obesity, with previous gastric bypass surgery, significant tobacco history, and marijuana abuse, who was admitted on February 05, 2020. She came with intermittent episodes of chest pain for 4 days prior to admission. She was seen by Cardiology. She was felt to have a non ST-segment elevation myocardial infarction. She was also noted to have AV dissociation, with left bundle branch block morphology. The patient underwent cardiac catheterization, was found to have relatively normal coronary arteries in the urban planner raise a possibility of takotsubo syndrome. Her ejection fraction was low at 30% to 35%. Currently, the patient is doing well. She is on 2 L nasal cannula. Saturations are 98%. She has been afebrile. Heart rate has been in the mid 70s. Respiratory rate in the mid teens. Current vital signs include temperature 97.5, heart rate 72, respiratory rate 18, blood pressure 112/73 mean 86, 2 L saturation 98%. She appears in no acute distress. HEENT: Examination is grossly unremarkable. NECK: Supple, full range of motion. No adenopathy. Neck veins are flat. CARDIOVASCULAR: Examination reveals regular rhythm and rate. S1, S2 normal. LUNGS: Reveal mostly clear breath sounds. A few scattered rhonchi. No wheezes or crackles. ABDOMEN: Soft, bowel sounds are heard. EXTREMITIES: Intact. No cyanosis, clubbing, or edema. SKIN: Without rash. NEUROLOGIC: Examination is nonfocal. Currently, the patient underwent a placement of a permanent pacemaker. LABS: Reviewed. Sodium 128, potassium 5.7, chloride 99, CO2 is 19, anion gap is 10, BUN and creatinine were 42 and 1.09. AST was 996, ALT 1255. Drug screen was positive for marijuana and opiates. COVID testing was negative. An Damon level was normal at 24. Microbiology is currently negative. Chest x-ray shows no acute process. CURRENT MEDICATIONS: Reviewed. She is on Ancef, Cymbalta, Lasix, Maalox, morphine, nitroglycerin tablets, Zofran, Protonix, and saline IV. ASSESSMENT: 1. Acute myocarditis, possibly viral, rule out takotsubo syndrome. 2. Elevated liver enzymes, secondary to congestive hepatopathy, doubt viral etiology. 3. No findings in the chest to suggest sarcoidosis. 4. Severe LV dysfunction. 5. Status post pacemaker insertion for accelerated intraventricular rhythm and AV disassociation. PLAN: The patient did have a pacemaker placed today. Will continue to follow. No additional recommendations are made. GI to evaluate elevated liver enzymes. No evidence of sarcoidosis on chest x-ray on this patient. Will continue to follow. Prognosis is guarded. MMODL / IJN: [id number] /
[2020-02-08] MEDS: DULoxetine HCL 20 MG CAPSULE.DR PO SCH (16:28)
[2020-02-08 16:43] LABS: Glucose,Whole Blood 140 mg/dL (75-99)
[2020-02-08 17:06] LABS: Alpha Fetoprotein, Tumor Mkr <2.5 ng/mL (0.0-7.9)
[2020-02-08 17:47] LABS: Protein, Total 6.5 g/dL (6.2-8.2)
[2020-02-09 00:06] LABS: Glucose,Whole Blood 111 mg/dL (75-99)
[2020-02-09 06:10] LABS: Glucose,Whole Blood 110 mg/dL (75-99)
[2020-02-09] MEDS: DULoxetine HCL 20 MG CAPSULE.DR PO SCH (08:26)
[2020-02-09] MEDS: MAG HYDROX/AL HYDROX/SIMETH 30 ML CUP PO SCH ×4 (08:26→22:50)
[2020-02-09] MEDS: PANTOPRAZOLE 40 MG/10 ML VIAL IVP SCH (08:26)
[2020-02-09] MEDS: ONDANSETRON 4 MG/2 ML VIAL IVP PRN ×2 (08:27→16:51)
[2020-02-09] MEDS: MORPHINE SULFATE 4 MG/ML SYRINGE IVP PRN ×4 (08:27→20:33)
[2020-02-09] MEDS ORDERED: SODIUM POLYSTYRENE SULFONATE 15 GM/60 ML BOTTLE PO STA (09:18)
--- NOTE | 2020-02-09 09:26 | P.PN ---
Subjective 45-year-old female came in with compensative severe neck pain radiating to the shoulder and the arms with tingling and numbness in the fifth fingers in the left hand. Patient appears to have severe sepsis or cervical cephalalgia as well. Patient appears to have cervical degenerative disc disease. Although patient is found to have elevated troponins because of which patient underwent cardiac catheterization which did not show any significant occlusive disease that can explain the elevation of troponin and there was concern for stress-induced cardiomyopathy or takutsubo syndrome. Patient was also complaining of some diaphoresis shortness of breath and chest pain. Patient when questioned admits to significant stress anxiety and depression at home. Cardiology evaluated the patient and the there concerned about viral cardiomyopathy although patient denied any recent the viral illness or similar symptoms. 02/06/2020 Patient is euvolemic clinically not requiring any oxygen. IV fluids were discontinued. Patient was evaluated by pain management as cervical spine x-ray showing degenerative disease although mild patient is still complaining of severe nausea Maalox will be added. 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 02/07/2020 Patient is still complaining of nausea and dizziness and some shortness of breath patient SAT Down to 94%. IV Fluids Were Discontinued Chest X-Ray Will Be Obtained. Patient Blood Pressure Is Borderline and Fairly Okay. Patient Will Need a Biventricular AICD. Please Refer to Cardiology Documentation for Further Details. As per Cardiology Patient Is Not a Good Candidate for Emergency Transvenous Pacemaker. 02/08/2020 Patient is still diaphoretic still complaining of nausea because of her elevated the liver enzymes patient is off [place] present is presently getting morphine patient is an not undergoing any pacemaker placement at this time cardiology will reevaluate and the will decide on further plans. Patient is bit hyponatremic but patient is not failure will just monitor the serum sodium will order hyponatremia labs including director energy cortisol, urine and serum osmolality urine random sodium. Patient already had a TSH which was within normal limits. If her sodium continues to go down then patient may need to be evaluated by nephrology patient doesn't appear to be hypovolemic will fluid restrict her to 1500 mL per day 02/09/2020 Patient's lab was a significantly improved nausea improved as well. Although patient is hyponatremic A gave her a dose of Lasix is without any significant improvement. Serum cortisol is within normal limits urine random sodium urine random creatinine is still pending patient liver enzymes continue to go up all the workup so far for elevated liver enzymes or transaminitis were negative.. Multiple consultants including gastroenterology or following the patient. We'll consult gastroenterology for hyponatremia Constitutional: Denied any fatigue denied any fever. Cardio vascular: denied any chest pain, palpitations Gastrointestinal denied any vomiting Pulmonary: Denied any shortness of breath cough Neurologic denied any new focal deficits All inpatient medications were reviewed and appropriate changes in these medications as dictated in the interval history and assessment and plan. Objective - Vital Signs Vital signs: Vital Signs Temp 97.6 F 02/09/20 08:00 Pulse 60 02/09/20 08:00 Resp 18 02/09/20 08:00 BP 137/73 02/09/20 08:00 Pulse Ox 96 02/09/20 08:00 Intake & Output 02/08/20 02/09/20 02/09/20 18:59 06:59 18:59 Intake Total 600 240 Output Total 250 Balance 350 240 Weight 167.5 kg Intake: IV 550 Intake, IV Titration 50 Amount ceFAZolin 1,000 mg In 50 Sodium Chloride 0.9% 50 ml @ 100 mls/hr IVPB Q8H [facility] Rx#:[id number] Oral 240 Output: Urine 250 Other: Voiding Method Toilet # Voids 1 - Exam PHYSICAL EXAMINATION: GENERAL: The patient is alert and oriented x3, not in any acute distress. Obese is significantly, looks much better today has an external pacemaker HEENT: Pupils are round and equally reacting to light. EOMI. No scleral icterus. No conjunctival pallor. Normocephalic, atraumatic. No pharyngeal erythema. No thyromegaly. CARDIOVASCULAR: S1 and S2 present. No murmurs, rubs, or gallops. PULMONARY: Chest is clear to auscultation, no wheezing or crackles. ABDOMEN: Soft, nontender, nondistended, normoactive bowel sounds. No palpable organomegaly. MUSCULOSKELETAL: No joint swelling or deformity. EXTREMITIES: No cyanosis, clubbing, or pedal edema. NEUROLOGICAL: Gross neurological examination did not reveal any focal deficits. SKIN: No rashes. - Labs CBC & Chem 7: 02/07/20 07:21 02/08/20 08:38 Labs: Abnormal Lab Results - Last 24 Hours (Table) 02/07/20 02/08/20 02/08/20 Range/Units 07:21 08:38 16:41 Sodium 128 L (137-145) mmol/L Potassium 5.7 H (3.5-5.1) mmol/L Carbon Dioxide 19 L (22-30) mmol/L BUN 42 H (7-17) mg/dL Creatinine 1.09 H (0.52-1.04) mg/dL Glucose 113 H (74-99) mg/dL POC Glucose (mg/dL) 140 H (75-99) mg/dL AST 996 H (14-36) U/L ALT 1255 H (4-34) U/L CMV IgG Ab Reactive A (Non-Reactive) 02/09/20 02/09/20 Range/Units 00:05 06:07 Sodium (137-145) mmol/L Potassium (3.5-5.1) mmol/L Carbon Dioxide (22-30) mmol/L BUN (7-17) mg/dL Creatinine (0.52-1.04) mg/dL Glucose (74-99) mg/dL POC Glucose (mg/dL) 111 H 110 H (75-99) mg/dL AST (14-36) U/L ALT (4-34) U/L CMV IgG Ab (Non-Reactive) Assessment and Plan Plan: -Elevated troponins: Most probably secondary to viral myocarditis or stress- induced cardiomyopathy patient is status post cardiac catheterization no evidence of significant atherosclerotic occlusive disease. Patient has complete heart block as per cardiology and has an external pacemaker at this time -Hyponatremia appeared to be euvolemic hyponatremia evaluation as mentioned above. Fluid restriction to 1500 mL Congestive heart failure chronic systolic dysfunction, not in acute exacerbation and clinically is not in heart failure exacerbation at this time 1 elevated liver enzymes: Known etiology workup as mentioned above gastroenterology is following the patient. -Nausea probably secondary to third-degree heart block improved now after pacemaker placement -Depression, anxiety: Patient is on Cymbalta which is also helpful for peripheral neuropathy. 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 -DVT prophylaxis: Patient is presently on IV heparin.
[2020-02-09 10:13] LABS: Albumin 3.7 g/dL (3.5-5.0); Calcium 8.3 mg/dL (8.4-10.2); Potassium 5.4 mmol/L (3.5-5.1); Total Bilirubin 0.9 mg/dL (0.2-1.3); Total Protein 6.8 g/dL (6.3-8.2)
[2020-02-09 11:31] LABS: Ceruloplasmin 39.6 mg/dL (20.0-60.0)
[2020-02-09 11:41] LABS: Glucose,Whole Blood 117 mg/dL (75-99)
[2020-02-09 11:45] LABS: Liver/Kidney Microsome Antibod 0.8 UNITS (<=20)
--- NOTE | 2020-02-09 11:52 | P.NPCON ---
History of Present Illness - Reason for Consult hyponatremia - History of Present Illness Reason for consultation: Hyponatremia History of present illness: Patient is a 45-year-old female seen in consultation for hyponatremia. Patient presented to the hospital with chest discomfort as well as shortness of breath. Patient says the chest pain was intermittent for about 4 days prior to admission. She tested negative for coronavirus. She was noted to be in third- degree heart block and had a temporary pacer placed. Sodium level was 134 on admission and is down to 125 today. Renal function is near baseline. Creatinine 1.01 today. She is currently not on fluids. She did receive a dose of IV Lasix yesterday. Oral intake is fair. She's been nauseated. She denies drinking excessive amounts of water. No history of malignancy. Thyroid and cortisol level were normal this admission. She denies regular use of nonsteroidals. No vomiting. No diarrhea. Blood pressure not low. Pulse set at 60. Vital signs are stable. General: The patient appeared well nourished and normally developed. HEENT: Head exam is unremarkable. Neck is without jugular venous distension. LUNGS: Breath sounds decreased. HEART: Rate and Rhythm are regular. ABDOMEN: Soft, nontender. Obese. EXTREMITITES: No edema. Past Medical History Past Medical History: Seizure Disorder Additional Past Medical History / Comment(s): BACK PAIN, ARTHRITIS, low thyroid hormone History of Any Multi-Drug Resistant Organisms: None Reported Past Surgical History: Bariatric Surgery, Cholecystectomy, Orthopedic Surgery Additional Past Surgical History / Comment(s): LAP BAND, left foot Past Anesthesia/Blood Transfusion Reactions: No Reported Reaction, Motion Sickn ess Past Psychological History: Anxiety, Bipolar, Depression Additional Psychological History / Comment(s): Pt resides with her significant other. They have a dog. She states she does not have a drivers license. She uses the bus to get to appts. Smoking Status: Current every day smoker Past Alcohol Use History: None Reported Additional Past Alcohol Use History / Comment(s): Pt started smoking in 1989 and is a ppd smoker. She used to drink a bottle of wine a day but quit that years ago. Past Drug Use History: Marijuana Additional Drug Use History / Comment(s): Pt states she overused opiates in the past but no longer a problem for years. - Past Family History Father Family Medical History: Cancer Additional Family Medical History / Comment(s): Father of brain cancer at the age of 77yrs. Mother Additional Family Medical History / Comment(s): Mother of "heart problems" at the age of 62 yrs. Medications and Allergies Home Medications Medication Instructions Recorded Confirmed Type Tbderrd-Dngy-Fsog [id number] 2 tab PO Q4HR PRN 02/05/20 02/05/20 History [Excedrin] Butalb/APAP/Caff 50-325-40Mg 1 tab PO BID PRN 02/05/20 02/05/20 History [Fioricet 50-325-40] Ibuprofen [Motrin Ib] 600 mg PO Q8H PRN 02/05/20 02/05/20 History Ondansetron Odt [Zofran Odt] 4 mg PO BID PRN 02/05/20 02/05/20 History Allergies Allergy/AdvReac Type Severity Reaction Status Date / Time ketorolac tromethamine Allergy Rash/Hives Verified 02/05/20 07:51 [From Toradol] mushroom Allergy Unknown Verified 02/05/20 07:51 tramadol AdvReac SEIZURES Verified 02/05/20 07:51 Physical Exam Vitals: Vital Signs Temp Pulse Pulse Resp BP BP Pulse Ox 02/09/20 08:00 97.6 F 60 18 137/73 96 02/09/20 04:00 97.6 F 60 60 18 142/90 97 02/09/20 02:00 60 18 02/09/20 00:39 142/90 02/08/20 23:31 97.7 F 59 L 17 120/59 93 L 02/08/20 20:00 98.8 F 59 L 17 129/78 93 L 02/08/20 15:39 60 122/73 02/08/20 14:39 60 141/66 02/08/20 14:09 60 16 143/64 02/08/20 13:39 60 142/73 02/08/20 13:24 60 132/65 95 02/08/20 13:09 60 16 140/70 02/08/20 12:54 60 16 106/63 96 Intake and Output 02/08/20 02/09/20 02/09/20 22:59 06:59 14:59 Intake Total 780 Output Total 250 400 Balance -250 380 Intake: Oral 780 Output: Urine 250 400 Other: Voiding Method Toilet Toilet Toilet # Voids 1 Weight 167.5 kg Results - Lab Results Most recent lab results Calcium 8.3 mg/dL (8.4-10.2) L 02/09/20 08:40 Magnesium 2.2 mg/dL (1.6-2.3) 02/07/20 07:21 02/07/20 07:21 02/09/20 08:40 Assessment and Plan Plan: Assessment: 1. Hyponatremia. Appears hypovolemic. Sodium level dropped after he received a dose of Lasix yesterday. Sodium level 125 today. TSH and cortisol level normal. 2. Third-degree heart block status post temporary pacer placement. Cardiology following. 3. Mild acute kidney injury mostly prerenal. Better. 4. Elevated liver enzymes. GI following. Possibly ischemic hepatitis. 5. Hyperkalemia secondary to acute kidney injury. Better. Plan: 1200 mL fluid restriction. Encourage oral intake, particularly protein. Add ensure 3 times a day. Renal diet. Start normal saline at 75 mL an hour. Repeat sodium level this evening. Check serum and urine osmolality and urine sodium level. Thank you for the consultation. I will continue to follow patient with you during her hospital stay
[2020-02-09] MEDS ORDERED: SODIUM CHLORIDE 0.9% 1,000 ML IV SCH (12:00)
--- NOTE | 2020-02-09 12:40 | P.PN ---
Subjective Progress Note Date: 02/09/20 Principal diagnosis: Elevated liver enzymes The patient is a 45-year-old white female who presented to the hospital with chest pain. She has been closely followed by cardiology and underwent a cardiac catheterization for elevated troponins with no significant occlusive disease noted. There is concern for cardiomyopathy and myocarditis. She underwent an external pacemaker yesterday for complete heart block. Today she states she is feeling better. She states she still had some mild nausea but much better than yesterday. She didn't eat much for breakfast. She still having some dry heaves but again improved from yesterday. Continues to deny any prior history of liver disease or knowledge of elevated liver enzymes. The liver serology studies ordered, most results pending. AFP was normal. CMV and Yuko-Pedroza virus ordered. CMV negative for active disease. EBV pending. Today's liver enzymes include total bili 0.9, AST 1671, ALT 2119, alkaline phosphatase 84. She has been afebrile, temperature 97.6, blood pressure 137/73, heart rate 60, oxygen level 94% on room air. Objective - Vital Signs Vital signs: Vital Signs Temp 97.6 F 02/09/20 08:00 Pulse 60 02/09/20 08:00 Resp 18 02/09/20 08:00 BP 137/73 02/09/20 08:00 Pulse Ox 96 02/09/20 08:00 Intake & Output 02/08/20 02/09/20 02/09/20 18:59 06:59 18:59 Intake Total 600 780 Output Total 250 400 Balance 350 380 Weight 167.5 kg Intake: IV 550 Intake, IV Titration 50 Amount ceFAZolin 1,000 mg In 50 Sodium Chloride 0.9% 50 ml @ 100 mls/hr IVPB Q8H [facility] Rx#:[id number] Oral 780 Output: Urine 250 400 Other: Voiding Method Toilet Toilet # Voids 1 - Exam General appearance: The patient is alert, oriented, in no acute distress. Obese. HET: Head is normocephalic and atraumatic. Conjunctiva pink. Sclera anicteric. Neck: Supple without lymphadenopathy. Abdomen: Soft, obese, nontender, nondistended with bowel sounds. No guarding or rigidity. Extremities: Normal skin color and turgor. No pedal edema Neurological: No focal deficits. Alert and oriented 3. - Labs CBC & Chem 7: 02/07/20 07:21 02/09/20 08:40 Labs: Abnormal Lab Results - Last 24 Hours (Table) 02/07/20 02/08/20 02/09/20 Range/Units 07:21 16:41 00:05 Sodium (137-145) mmol/L Potassium (3.5-5.1) mmol/L Chloride (98-107) mmol/L Carbon Dioxide (22-30) mmol/L BUN (7-17) mg/dL Glucose (74-99) mg/dL POC Glucose (mg/dL) 140 H 111 H (75-99) mg/dL Osmolality (280-301) mosm/kg Calcium (8.4-10.2) mg/dL AST (14-36) U/L ALT (4-34) U/L CMV IgG Ab Reactive A (Non-Reactive) 02/09/20 02/09/20 02/09/20 Range/Units 06:07 08:40 08:40 Sodium 125 L (137-145) mmol/L Potassium 5.4 H (3.5-5.1) mmol/L Chloride 97 L (98-107) mmol/L Carbon Dioxide 20 L (22-30) mmol/L BUN 47 H (7-17) mg/dL Glucose 110 H (74-99) mg/dL POC Glucose (mg/dL) 110 H (75-99) mg/dL Osmolality 276 L (280-301) mosm/kg Calcium 8.3 L (8.4-10.2) mg/dL AST 1671 H (14-36) U/L ALT 2119 H (4-34) U/L CMV IgG Ab (Non-Reactive) 02/09/20 Range/Units 11:39 Sodium (137-145) mmol/L Potassium (3.5-5.1) mmol/L Chloride (98-107) mmol/L Carbon Dioxide (22-30) mmol/L BUN (7-17) mg/dL Glucose (74-99) mg/dL POC Glucose (mg/dL) 117 H (75-99) mg/dL Osmolality (280-301) mosm/kg Calcium (8.4-10.2) mg/dL AST (14-36) U/L ALT (4-34) U/L CMV IgG Ab (Non-Reactive) Assessment and Plan (1) Elevated liver enzymes Narrative/Plan: 45-year-old female who presented to the hospital with complaints of chest pain with cardiac catheterization negative for significant cardiac atherosclerosis, the concern is for stress-induced cardiomyopathy with plan for biventricular pacemaker with defibrillator placement. Patient was noted to have mild elevation of liver enzymes on presentation which increased today with total bilirubin 0.7, alkaline phosphatase 76, AST 346 and ALT 561 predominantly in a hepatocellular pattern. She does report eating told of elevated liver enzymes in the past, she also reports intermittent periods of heavy alcohol use in the past but is currently not drinking alcohol. She denies any history of viral hepatitis, family history of liver disease or decompensated liver disease. Unclear etiology, likely related to medication effect given increase after presentation, cannot rule out a component of underlying liver disease in a pat ient who is obese and reported intermittent periods of heavy alcohol in the past, ultrasound of the abdomen negative for any intrahepatic liver disease with right-sided pleural effusion noted. Acute viral hepatitis panel ordered and is negative, full liver serology ordered. Will also order Yuko-Pedroza virus panel and cytomegalovirus. Elevation in liver enzymes and nausea likely related to ischemic hepatitis due to hypoperfusion, however can not rule out medication induced. Will await full serology study results. Current Visit: Yes Status: Acute Code(s): R74.8 - ABNORMAL LEVELS OF OTHER SERUM ENZYMES SNOMED Code(s): 083690940 Plan: Supportive care Okay for diet Antiemetics as needed Continue to monitor daily CBC, BMP, LFTs Acute viral hepatitis panel ordered and negative Ultrasound of the abdomen ordered and reviewed Full liver serology, EBV panel and CMV ordered, pending results No plan for endoscopic evaluation at this time Thank you for this consultation, we will continue to follow closely. Dr. Nay Bartlett I agree with the dictator's note, documented as a scribe by Lita Ernst.
[2020-02-09 13:06] LABS: Albumin 3.34 g/dL (3.80-4.90); Gamma Globulin 1.01 g/dL (0.70-1.50)
--- NOTE | 2020-02-09 15:50 | P.PN ---
Subjective Progress Note Date: 02/09/20 HISTORY OF PRESENT ILLNESS: Patient is status post externalized pacemaker implant with Dr. Martinez secondary to complete heart block. Telemetry reveals paced rhythm at 60 bpm. Patient is sitting in the chair this morning at the time of examination. She continues to report nausea. She reports she is extremely fatigued and feels weak today. She continues to feel lightheaded as well at times. Blood pressure 137/82. Sodium 125. Potassium 5.4. LFTs continue to increase. AST 1671. ALT 2119. PHYSICAL EXAM: VITAL SIGNS: Reviewed. GENERAL: Well-developed in no acute distress. NECK: Supple. No JVD or thyromegaly LUNGS: Respirations even and unlabored. Lungs essentially clear to auscultation bilaterally. HEART: Regular rate and rhythm. S1 and S2 heard. EXTREMITIES: Normal range of motion. No clubbing or cyanosis. Peripheral pulses intact. 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 Signing provider agrees with the documented findings, assessment, and plan of care. Objective - Vital Signs Vital signs: Vital Signs Temp 97.6 F 02/09/20 08:00 Pulse 61 02/09/20 12:00 Resp 18 02/09/20 12:00 BP 137/81 02/09/20 12:00 Pulse Ox 99 02/09/20 12:00 Intake & Output 02/08/20 02/09/20 02/09/20 18:59 06:59 18:59 Intake Total 600 780 Output Total 250 400 Balance 350 380 Weight 167.5 kg Intake: IV 550 Intake, IV Titration 50 Amount ceFAZolin 1,000 mg In 50 Sodium Chloride 0.9% 50 ml @ 100 mls/hr IVPB Q8H [facility] Rx#:[id number] Oral 780 Output: Urine 250 400 Other: Voiding Method Toilet Toilet # Voids 1 - Labs CBC & Chem 7: 02/07/20 07:21 02/09/20 08:40 Labs: Abnormal Lab Results - Last 24 Hours (Table) 02/07/20 02/08/20 02/08/20 Range/Units 07:21 08:38 16:41 Sodium (137-145) mmol/L Potassium (3.5-5.1) mmol/L Chloride (98-107) mmol/L Carbon Dioxide (22-30) mmol/L BUN (7-17) mg/dL Glucose (74-99) mg/dL POC Glucose (mg/dL) 140 H (75-99) mg/dL Osmolality (280-301) mosm/kg Calcium (8.4-10.2) mg/dL AST (14-36) U/L ALT (4-34) U/L Albumin (PEP) 3.34 L (3.80-4.90) g/dL Qvifb-2-Epnvvczwh 0.43 H (0.10-0.40) g/dL CMV IgG Ab Reactive A (Non-Reactive) 02/09/20 02/09/20 02/09/20 Range/Units 00:05 06:07 08:40 Sodium 125 L (137-145) mmol/L Potassium 5.4 H (3.5-5.1) mmol/L Chloride 97 L (98-107) mmol/L Carbon Dioxide 20 L (22-30) mmol/L BUN 47 H (7-17) mg/dL Glucose 110 H (74-99) mg/dL POC Glucose (mg/dL) 111 H 110 H (75-99) mg/dL Osmolality (280-301) mosm/kg Calcium 8.3 L (8.4-10.2) mg/dL AST 1671 H (14-36) U/L ALT 2119 H (4-34) U/L Albumin (PEP) (3.80-4.90) g/dL Uqbaj-0-Dypcmbhec (0.10-0.40) g/dL CMV IgG Ab (Non-Reactive) 02/09/20 02/09/20 Range/Units 08:40 11:39 Sodium (137-145) mmol/L Potassium (3.5-5.1) mmol/L Chloride (98-107) mmol/L Carbon Dioxide (22-30) mmol/L BUN (7-17) mg/dL Glucose (74-99) mg/dL POC Glucose (mg/dL) 117 H (75-99) mg/dL Osmolality 276 L (280-301) mosm/kg Calcium (8.4-10.2) mg/dL AST (14-36) U/L ALT (4-34) U/L Albumin (PEP) (3.80-4.90) g/dL Huvqw-8-Evkvfxbme (0.10-0.40) g/dL CMV IgG Ab (Non-Reactive)
--- NOTE | 2020-02-09 15:52 | PN ---
PROGRESS NOTE PULMONARY/CRITICAL CARE PROGRESS NOTE: DATE OF SERVICE: 02/09/2020 A 45-year-old female who came into the hospital with chest pain, nausea, diaphoresis and shortness of breath. The patient was felt to have a non ST-segment elevation myocardial infarction. She also was found to have AV disassociation with left bundle branch block morphology and the patient underwent a pacemaker insertion yesterday. The patient is doing relatively well. No major complaints today. The patient also has a history of acute myocarditis, possibly viral versus Takotsubo syndrome or also, elevated liver enzymes, secondary to congestive hepatopathy, and severe LV dysfunction. PHYSICAL EXAMINATION: VITAL SIGNS: Current vital signs are reviewed. Temperature 97.6, heart rate 61, respiratory rate 18, blood pressure 137/81, mean blood pressure is 99 and room air saturation 99%. GENERAL: Patient appears in no acute distress. HEENT: Examination is grossly unremarkable. No supplemental oxygen noted. NECK: Supple. Full range of motion. No adenopathy. No neck vein distention. CARDIOVASCULAR: Examination reveals regular rhythm and rate. Heart rate 60 beats per minute. S1, S2 normal. No S3, S4, or murmur. LUNGS: Reveal mostly clear breath sounds. A few scattered rhonchi. No wheezes or crackles. ABDOMEN: Soft. Bowel sounds are heard. EXTREMITIES: Are intact. No cyanosis, clubbing, or edema. SKIN: Without rash. NEUROLOGIC: Examination is nonfocal. LABORATORY DATA: Laboratory data is reviewed. Sodium 125, potassium 5.4, chloride 97, CO2 of 20. Anion gap is 8. BUN and creatinine were 47 and 1.01. Osmolarity is 276. Calcium 8.3. AST 1671, ALT 2119. Microbiology is negative. No recent chest x-ray. The chest x-ray done yesterday after the pacemaker insertion showed no acute abnormality. CURRENT MEDICATIONS: Current medications are reviewed. The patient is currently on Ancef, Cymbalta, Maalox, morphine, sublingual nitroglycerin tablets, Zofran, Protonix, 0.9 IV at 75 mL an hour. ASSESSMENT: 1. Acute myocarditis, possibly viral, rule out takotsubo syndrome. 2. Elevated liver enzymes, secondary to congestive hepatopathy, doubt viral etiology. 3. No evidence in the chest to suggest sarcoidosis. 4. Severe LV dysfunction. 5. Status post pacemaker insertion for accelerated intraventricular rhythm and AV disassociation. 6. Hypovolemic hyponatremia. PLAN: The patient was seen by Nephrology. From the pulmonary standpoint, the patient is stable. We will continue to follow as needed. Pulmonary status is stable. She is on room air. No additional recommendations are made. MMBRITTANIL / IJN: [id number] /
[2020-02-09 16:41] LABS: Glucose,Whole Blood 118 mg/dL (75-99)
[2020-02-09 19:53] LABS: Calcium 8.3 mg/dL (8.4-10.2); Potassium 5.1 mmol/L (3.5-5.1)
[2020-02-09] MEDS: PANTOPRAZOLE 40 MG TABLET PO SCH (20:33)
[2020-02-09 22:17] LABS: EBV-EA (IgG) 2.5 AI; EBV-EBNA(IgG) >8.0 AI; EBV-VCA (IgG) >8.0 AI; EBV-VCA (IgM) <0.2 AI
[2020-02-09] MEDS: SODIUM CHLORIDE TAB 1 GM TAB PO SCH (22:50)
[2020-02-10 00:24] LABS: Glucose,Whole Blood 109 mg/dL (75-99)
[2020-02-10] MEDS: ONDANSETRON 4 MG/2 ML VIAL IVP PRN (02:43)
[2020-02-10] MEDS: MORPHINE SULFATE 4 MG/ML SYRINGE IVP PRN ×5 (02:43→23:12)
[2020-02-10 06:02] LABS: Glucose,Whole Blood 109 mg/dL (75-99)
[2020-02-10 08:44] LABS: AST 498 U/L (14-36); African American GFR (CKD) >90 (>60 ml/min/1.73 sqM); Albumin 3.2 g/dL (3.5-5.0); Alkaline Phosphatase 82 U/L (38-126); Anion Gap 6 mmol/L; Blood Urea Nitrogen 35 mg/dL (7-17); Calcium 7.3 mg/dL (8.4-10.2); Carbon Dioxide 20 mmol/L (22-30); Chloride 100 mmol/L (98-107); Glucose 113 mg/dL (74-99); Magnesium 2.7 mg/dL (1.6-2.3); Non-African American GFR(CKD) >90 (>60 ml/min/1.73 sqM); Potassium 4.3 mmol/L (3.5-5.1); Sodium 126 mmol/L (137-145); Total Bilirubin 0.7 mg/dL (0.2-1.3); Total Protein 6.1 g/dL (6.3-8.2)
[2020-02-10 09:01] LABS: ALT 1194 U/L (4-34)
--- NOTE | 2020-02-10 09:01 | P.PN ---
Subjective 45-year-old female came in with compensative severe neck pain radiating to the shoulder and the arms with tingling and numbness in the fifth fingers in the left hand. Patient appears to have severe sepsis or cervical cephalalgia as well. Patient appears to have cervical degenerative disc disease. Although patient is found to have elevated troponins because of which patient underwent cardiac catheterization which did not show any significant occlusive disease that can explain the elevation of troponin and there was concern for stress-induced cardiomyopathy or takutsubo syndrome. Patient was also complaining of some diaphoresis shortness of breath and chest pain. Patient when questioned admits to significant stress anxiety and depression at home. Cardiology evaluated the patient and the there concerned about viral cardiomyopathy although patient denied any recent the viral illness or similar symptoms. 02/06/2020 Patient is euvolemic clinically not requiring any oxygen. IV fluids were discontinued. Patient was evaluated by pain management as cervical spine x-ray showing degenerative disease although mild patient is still complaining of severe nausea Maalox will be added. 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 02/07/2020 Patient is still complaining of nausea and dizziness and some shortness of breath patient SAT Down to 94%. IV Fluids Were Discontinued Chest X-Ray Will Be Obtained. Patient Blood Pressure Is Borderline and Fairly Okay. Patient Will Need a Biventricular AICD. Please Refer to Cardiology Documentation for Further Details. As per Cardiology Patient Is Not a Good Candidate for Emergency Transvenous Pacemaker. 02/08/2020 Patient is still diaphoretic still complaining of nausea because of her elevated the liver enzymes patient is off [place] present is presently getting morphine patient is an not undergoing any pacemaker placement at this time cardiology will reevaluate and the will decide on further plans. Patient is bit hyponatremic but patient is not failure will just monitor the serum sodium will order hyponatremia labs including button buttonhole marker cortisol, urine and serum osmolality urine random sodium. Patient already had a TSH which was within normal limits. If her sodium continues to go down then patient may need to be evaluated by nephrology patient doesn't appear to be hypovolemic will fluid restrict her to 1500 mL per day 02/09/2020 Patient's lab was a significantly improved nausea improved as well. Although patient is hyponatremic A gave her a dose of Lasix is without any significant improvement. Serum cortisol is within normal limits urine random sodium urine random creatinine is still pending patient liver enzymes continue to go up all the workup so far for elevated liver enzymes or transaminitis were negative.. Multiple consultants including gastroenterology or following the patient. We'll consult gastroenterology for hyponatremia. 02/10/2020 Patient's transaminitis is getting better cardiology will put a permanent pacemaker or defibrillator once the liver enzymes come down liver enzymes today are significantly better. gastroenterology believes this is medication induced or viral. Patient urinary sodium is low appears to have hypovolemic hyponatremia was started on IV fluids. Nephrology evaluated the patient. Nausea is significantly better Constitutional: Denied any fatigue denied any fever. Cardio vascular: denied any chest pain, palpitations Gastrointestinal denied any vomiting Pulmonary: Denied any shortness of breath cough Neurologic denied any new focal deficits All inpatient medications were reviewed and appropriate changes in these medications as dictated in the interval history and assessment and plan. Objective - Vital Signs Vital signs: Vital Signs Temp 97.9 F 02/10/20 00:00 Pulse 60 02/10/20 03:54 Resp 17 02/10/20 03:54 BP 149/83 02/10/20 03:54 Pulse Ox 98 02/10/20 03:54 Intake & Output 02/09/20 02/10/20 02/10/20 18:59 06:59 18:59 Intake Total 1320 575 Output Total 800 Balance 520 575 Weight 137.4 kg Intake: Intake, IV Titration 425 Amount Sodium Chloride 0.9% 1, 375 000 ml @ 75 mls/hr IV . [id number] TIKI Rx#:[id number] ceFAZolin 1,000 mg In 50 Sodium Chloride 0.9% 50 ml @ 100 mls/hr IVPB Q8H TIKI Rx#:[id number] Oral 1320 150 Output: Urine 800 Other: Voiding Method Toilet Toilet # Voids 2 - Exam PHYSICAL EXAMINATION: GENERAL: The patient is alert and oriented x3, not in any acute distress. Obese is significantly, looks much better today has an external pacemaker HEENT: Pupils are round and equally reacting to light. EOMI. No scleral icterus. No conjunctival pallor. Normocephalic, atraumatic. No pharyngeal erythema. No thyromegaly. CARDIOVASCULAR: S1 and S2 present. No murmurs, rubs, or gallops. PULMONARY: Chest is clear to auscultation, no wheezing or crackles. ABDOMEN: Soft, nontender, nondistended, normoactive bowel sounds. No palpable organomegaly. MUSCULOSKELETAL: No joint swelling or deformity. EXTREMITIES: No cyanosis, clubbing, or pedal edema. NEUROLOGICAL: Gross neurological examination did not reveal any focal deficits. SKIN: No rashes. - Labs CBC & Chem 7: 02/07/20 07:21 02/10/20 08:18 Labs: Abnormal Lab Results - Last 24 Hours (Table) 02/07/20 02/08/20 02/09/20 Range/Units 07:21 08:38 08:40 Sodium 125 L (137-145) mmol/L Potassium 5.4 H (3.5-5.1) mmol/L Chloride 97 L (98-107) mmol/L Carbon Dioxide 20 L (22-30) mmol/L BUN 47 H (7-17) mg/dL Glucose 110 H (74-99) mg/dL POC Glucose (mg/dL) (75-99) mg/dL Osmolality (280-301) mosm/kg Calcium 8.3 L (8.4-10.2) mg/dL Magnesium (1.6-2.3) mg/dL AST 1671 H (14-36) U/L ALT 2119 H (4-34) U/L Total Protein (6.3-8.2) g/dL Albumin (3.5-5.0) g/dL Albumin (PEP) 3.34 L (3.80-4.90) g/dL Ptczf-2-Hdmzhwjzu 0.43 H (0.10-0.40) g/dL EBV Capsid Ag IgG Intrp POSITIVE A (NEGATIVE) EBV EA IgG Ab Interp POSITIVE A (NEGATIVE) EBV Nuc Ag IgG Interp POSITIVE A (NEGATIVE) 02/09/20 02/09/20 02/09/20 Range/Units 08:40 11:39 16:40 Sodium (137-145) mmol/L Potassium (3.5-5.1) mmol/L Chloride (98-107) mmol/L Carbon Dioxide (22-30) mmol/L BUN (7-17) mg/dL Glucose (74-99) mg/dL POC Glucose (mg/dL) 117 H 118 H (75-99) mg/dL Osmolality 276 L (280-301) mosm/kg Calcium (8.4-10.2) mg/dL Magnesium (1.6-2.3) mg/dL AST (14-36) U/L ALT (4-34) U/L Total Protein (6.3-8.2) g/dL Albumin (3.5-5.0) g/dL Albumin (PEP) (3.80-4.90) g/dL Roxxs-6-Dcfrqoohm (0.10-0.40) g/dL EBV Capsid Ag IgG Intrp (NEGATIVE) EBV EA IgG Ab Interp (NEGATIVE) EBV Nuc Ag IgG Interp (NEGATIVE) 02/09/20 02/10/20 02/10/20 Range/Units 18:27 00:22 06:00 Sodium 124 L (137-145) mmol/L Potassium (3.5-5.1) mmol/L Chloride 95 L (98-107) mmol/L Carbon Dioxide 21 L (22-30) mmol/L BUN 46 H (7-17) mg/dL Glucose (74-99) mg/dL POC Glucose (mg/dL) 109 H 109 H (75-99) mg/dL Osmolality (280-301) mosm/kg Calcium 8.3 L (8.4-10.2) mg/dL Magnesium (1.6-2.3) mg/dL AST (14-36) U/L ALT (4-34) U/L Total Protein (6.3-8.2) g/dL Albumin (3.5-5.0) g/dL Albumin (PEP) (3.80-4.90) g/dL Ftllb-7-Xaqtbfyym (0.10-0.40) g/dL EBV Capsid Ag IgG Intrp (NEGATIVE) EBV EA IgG Ab Interp (NEGATIVE) EBV Nuc Ag IgG Interp (NEGATIVE) 02/10/20 Range/Units 08:18 Sodium 126 L (137-145) mmol/L Potassium (3.5-5.1) mmol/L Chloride (98-107) mmol/L Carbon Dioxide 20 L (22-30) mmol/L BUN 35 H (7-17) mg/dL Glucose 113 H (74-99) mg/dL POC Glucose (mg/dL) (75-99) mg/dL Osmolality (280-301) mosm/kg Calcium 7.3 L (8.4-10.2) mg/dL Magnesium 2.7 H (1.6-2.3) mg/dL AST 498 H (14-36) U/L ALT (4-34) U/L Total Protein 6.1 L (6.3-8.2) g/dL Albumin 3.2 L (3.5-5.0) g/dL Albumin (PEP) (3.80-4.90) g/dL Imcjn-7-Wjivkcoro (0.10-0.40) g/dL EBV Capsid Ag IgG Intrp (NEGATIVE) EBV EA IgG Ab Interp (NEGATIVE) EBV Nuc Ag IgG Interp (NEGATIVE) Assessment and Plan Plan: -Elevated troponins: Most probably secondary to viral myocarditis or stress- induced cardiomyopathy patient is status post cardiac catheterization no evidence of significant atherosclerotic occlusive disease. Patient has complete heart block as per cardiology and has an external pacemaker at this time patient will need a permanent pacemaker and AICD cardiology is awaiting improvement in liver enzymes. -Hyponatremia: Hypovolemic hyponatremia patient was started on IV normal saline along with free water restriction. Congestive heart failure chronic systolic dysfunction, not in acute exacerbation and clinically is not in heart failure exacerbation at this time 1 elevated liver enzymes: His to be secondary to medication induced or viral etiology. -Nausea probably secondary to third-degree heart block improved now after pacemaker placement -Depression, anxiety: Patient is on Cymbalta which is also helpful for peripheral neuropathy. 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 -DVT prophylaxis: Patient is presently on IV heparin.
[2020-02-10] MEDS: MAG HYDROX/AL HYDROX/SIMETH 30 ML CUP PO SCH ×4 (09:14→20:16)
[2020-02-10] MEDS: PANTOPRAZOLE 40 MG TABLET PO SCH ×2 (09:15→20:16)
[2020-02-10] MEDS: SODIUM CHLORIDE TAB 1 GM TAB PO SCH ×3 (09:15→20:16)
[2020-02-10] MEDS: DULoxetine HCL 20 MG CAPSULE.DR PO SCH (09:16)
--- NOTE | 2020-02-10 10:46 | ECHOF ---
Referral Reason:LV function MEASUREMENTS -------- HEIGHT: 177.8 cm WEIGHT: 167.4 kg BP: 137/81 IVSd: 1.2 cm (0.6 - 1.1) LVIDd: 4.8 cm (3.9 - 5.3) LVPWd: 1.3 cm (0.6 - 1.1) IVSs: 1.2 cm LVIDs: 3.9 cm LVPWs: 1.2 cm FINDINGS -------- Sinus rhythm. Limited study for LV function. Patient was scanned sitting up. Overall left ventricular systolic function is moderate-severely impaired with, an EF between 30 - 35 %. Basal inferoseptal LV wall motion is hypokinetic. Basal anteroseptal LV wall motion is hypoki netic. Mid lateral LV wall motion is hypokinetic. Mid posterior LV wall motion is hypokinetic. Mid inferior LV wall motion is hypokinetic. Apical lateral LV wall motion is hypokinetic. Ap ical inferior LV wall motion is hypokinetic. CONCLUSIONS -------- 1. Limited study for LV function. 2. Overall left ventricular systolic function is moderate-severely impaired with, an EF between 30 - 35 %. 3. Apical lateral LV wall motion is hypokinetic. 4. Apical inferior LV wall motion is hypokinetic. HEBREW PROFESSOR: Demetra Smith RDCS
--- NOTE | 2020-02-10 11:43 | P.PN ---
Subjective Progress Note Date: 02/10/20 Principal diagnosis: Elevated liver enzymes The patient is a 45-year-old white female who presented to the hospital with chest pain. She has been closely followed by cardiology and underwent a cardiac catheterization for elevated troponins with no significant occlusive disease noted. There is concern for cardiomyopathy and myocarditis. She underwent an external pacemaker this admission for complete heart block and plans are for patient to have permanent pacemaker placed in the future. Today she states she is feeling much better. She states her nausea and vomiting are improved. Her appetite is increasing, and she is tolerating her diet. The liver serology studies ordered, negative to date.. CMV and Yuko-Pedroza virus negative for active infection. Her LFTs are improving. Today's liver enzymes include total bili 0.7, AST 498, ALT 1194, alkaline phosphatase 82. Denies any abdominal pain, nausea, or vomiting. Objective - Vital Signs Vital signs: Vital Signs Temp 97.9 F 02/10/20 00:00 Pulse 60 02/10/20 03:54 Resp 17 02/10/20 03:54 BP 149/83 02/10/20 03:54 Pulse Ox 98 02/10/20 03:54 Intake & Output 02/09/20 02/10/20 02/10/20 18:59 06:59 18:59 Intake Total 1320 575 180 Output Total 800 Balance 520 575 180 Weight 137.4 kg Intake: Intake, IV Titration 425 Amount Sodium Chloride 0.9% 1, 375 000 ml @ 75 mls/hr IV . [id number] TIKI Rx#:[id number] ceFAZolin 1,000 mg In 50 Sodium Chloride 0.9% 50 ml @ 100 mls/hr IVPB Q8H TIKI Rx#:[id number] Oral 1320 150 180 Output: Urine 800 Other: Voiding Method Toilet Toilet # Voids 2 - Labs CBC & Chem 7: 02/07/20 07:21 02/10/20 08:18 Labs: Abnormal Lab Results - Last 24 Hours (Table) 02/07/20 02/08/20 02/09/20 Range/Units 07:21 08:38 08:40 Sodium 125 L (137-145) mmol/L Potassium 5.4 H (3.5-5.1) mmol/L Chloride 97 L (98-107) mmol/L Carbon Dioxide 20 L (22-30) mmol/L BUN 47 H (7-17) mg/dL Glucose 110 H (74-99) mg/dL POC Glucose (mg/dL) (75-99) mg/dL Osmolality (280-301) mosm/kg Calcium 8.3 L (8.4-10.2) mg/dL Magnesium (1.6-2.3) mg/dL AST 1671 H (14-36) U/L ALT 2119 H (4-34) U/L Total Protein (6.3-8.2) g/dL Albumin (3.5-5.0) g/dL Albumin (PEP) 3.34 L (3.80-4.90) g/dL Mklkh-4-Uefujgprn 0.43 H (0.10-0.40) g/dL EBV Capsid Ag IgG Intrp POSITIVE A (NEGATIVE) EBV EA IgG Ab Interp POSITIVE A (NEGATIVE) EBV Nuc Ag IgG Interp POSITIVE A (NEGATIVE) 02/09/20 02/09/20 02/09/20 Range/Units 08:40 11:39 16:40 Sodium (137-145) mmol/L Potassium (3.5-5.1) mmol/L Chloride (98-107) mmol/L Carbon Dioxide (22-30) mmol/L BUN (7-17) mg/dL Glucose (74-99) mg/dL POC Glucose (mg/dL) 117 H 118 H (75-99) mg/dL Osmolality 276 L (280-301) mosm/kg Calcium (8.4-10.2) mg/dL Magnesium (1.6-2.3) mg/dL AST (14-36) U/L ALT (4-34) U/L Total Protein (6.3-8.2) g/dL Albumin (3.5-5.0) g/dL Albumin (PEP) (3.80-4.90) g/dL Tzbuj-7-Gwbxxgvxx (0.10-0.40) g/dL EBV Capsid Ag IgG Intrp (NEGATIVE) EBV EA IgG Ab Interp (NEGATIVE) EBV Nuc Ag IgG Interp (NEGATIVE) 02/09/20 02/10/20 02/10/20 Range/Units 18:27 00:22 06:00 Sodium 124 L (137-145) mmol/L Potassium (3.5-5.1) mmol/L Chloride 95 L (98-107) mmol/L Carbon Dioxide 21 L (22-30) mmol/L BUN 46 H (7-17) mg/dL Glucose (74-99) mg/dL POC Glucose (mg/dL) 109 H 109 H (75-99) mg/dL Osmolality (280-301) mosm/kg Calcium 8.3 L (8.4-10.2) mg/dL Magnesium (1.6-2.3) mg/dL AST (14-36) U/L ALT (4-34) U/L Total Protein (6.3-8.2) g/dL Albumin (3.5-5.0) g/dL Albumin (PEP) (3.80-4.90) g/dL Dbecb-3-Wvuyabijw (0.10-0.40) g/dL EBV Capsid Ag IgG Intrp (NEGATIVE) EBV EA IgG Ab Interp (NEGATIVE) EBV Nuc Ag IgG Interp (NEGATIVE) 02/10/20 Range/Units 08:18 Sodium 126 L (137-145) mmol/L Potassium (3.5-5.1) mmol/L Chloride (98-107) mmol/L Carbon Dioxide 20 L (22-30) mmol/L BUN 35 H (7-17) mg/dL Glucose 113 H (74-99) mg/dL POC Glucose (mg/dL) (75-99) mg/dL Osmolality (280-301) mosm/kg Calcium 7.3 L (8.4-10.2) mg/dL Magnesium 2.7 H (1.6-2.3) mg/dL AST 498 H (14-36) U/L ALT 1194 H (4-34) U/L Total Protein 6.1 L (6.3-8.2) g/dL Albumin 3.2 L (3.5-5.0) g/dL Albumin (PEP) (3.80-4.90) g/dL Lidic-4-Ktkfkhmoq (0.10-0.40) g/dL EBV Capsid Ag IgG Intrp (NEGATIVE) EBV EA IgG Ab Interp (NEGATIVE) EBV Nuc Ag IgG Interp (NEGATIVE) Assessment and Plan (1) Elevated liver enzymes Narrative/Plan: 45-year-old female who presented to the hospital with complaints of chest pain with cardiac catheterization negative for significant cardiac atherosclerosis, the concern is for stress-induced cardiomyopathy with plan for biventricular pacemaker with defibrillator placement. Patient was noted to have mild elevation of liver enzymes on presentation which increased today with total bilirubin 0.7, alkaline phosphatase 76, AST 346 and ALT 561 predominantly in a hepatocellular pattern. She does report eating told of elevated liver enzymes in the past, she also reports intermittent periods of heavy alcohol use in the past but is currently not drinking alcohol. She denies any history of viral hepatitis, family history of liver disease or decompensated liver disease. Unclear etiology, likely related to medication effect given increase after presentation, cannot rule out a component of underlying liver disease in a patient who is obese and reported intermittent periods of heavy alcohol in the past, ultrasound of the abdomen negative for any intrahepatic liver disease with right-sided pleural effusion noted. Acute viral hepatitis panel ordered and is negative, full liver serology ordered. Will also order Yuko-Pedroza virus panel and cytomegalovirus. Elevation in liver enzymes and nausea likely related to ischemic hepatitis due to hypoperfusion, cardiac demand/supply related to complete heart block. The liver serology studies ordered, negative to date. CMV and EBV negative. LFTs are improving. Patient's symptoms improving. Current Visit: Yes Status: Acute Code(s): R74.8 - ABNORMAL LEVELS OF OTHER SERUM ENZYMES SNOMED Code(s): 084650492 Plan: Supportive care Okay for diet Antiemetics as needed Continue to monitor daily CBC, BMP, LFTs Acute viral hepatitis panel ordered and negative Ultrasound of the abdomen ordered and reviewed Full liver serology ordered, negative to date, EBV panel and CMV negative No plan for endoscopic evaluation at this time Thank you for this consultation, we will continue to follow closely. Dr. Nay Bartlett I agree with the dictator's note, documented as a scribe by Lita Ernst.
[2020-02-10 11:55] LABS: Glucose,Whole Blood 122 mg/dL (75-99)
--- NOTE | 2020-02-10 11:58 | P.PN ---
Subjective Patient is seen in follow-up for hyponatremia. Patient did receive IV fluids yesterday and the sodium dropped slightly. Sodium chloride tablets were added. Sodium level 126 this morning. Awake and alert. Denies chest pain or shortness of breath. No edema. No vomiting or diarrhea. Oral intake fair. Vital signs are stable. General: The patient appeared well nourished and normally developed. HEENT: Head exam is unremarkable. Neck is without jugular venous distension. LUNGS: Breath sounds decreased. HEART: Rate and Rhythm are regular. ABDOMEN: Soft, nontender. EXTREMITITES: No edema. Objective - Vital Signs Vital signs: Vital Signs Temp 98.0 F 02/10/20 09:15 Pulse 60 02/10/20 09:15 Resp 18 02/10/20 09:15 BP 136/84 02/10/20 09:15 Pulse Ox 94 L 02/10/20 09:15 Intake & Output 02/09/20 02/10/20 02/10/20 18:59 06:59 18:59 Intake Total 1320 575 180 Output Total 800 0 Balance 520 575 180 Weight 137.4 kg Intake: Intake, IV Titration 425 Amount Sodium Chloride 0.9% 1, 375 000 ml @ 75 mls/hr IV . [id number] TIKI Rx#:[id number] ceFAZolin 1,000 mg In 50 Sodium Chloride 0.9% 50 ml @ 100 mls/hr IVPB Q8H TIKI Rx#:[id number] Oral 1320 150 180 Output: Urine 800 0 Stool 0 Other: Voiding Method Toilet Toilet Toilet # Voids 2 0 # Bowel Movements 0 - Labs CBC & Chem 7: 02/07/20 07:21 02/10/20 08:18 Labs: Abnormal Lab Results - Last 24 Hours (Table) 02/07/20 02/08/20 02/08/20 Range/Units 07:21 08:38 08:38 Sodium (137-145) mmol/L Chloride (98-107) mmol/L Carbon Dioxide (22-30) mmol/L BUN (7-17) mg/dL Glucose (74-99) mg/dL POC Glucose (mg/dL) (75-99) mg/dL Osmolality (280-301) mosm/kg Calcium (8.4-10.2) mg/dL Magnesium (1.6-2.3) mg/dL AST (14-36) U/L ALT (4-34) U/L Total Protein (6.3-8.2) g/dL Albumin (3.5-5.0) g/dL Albumin (PEP) 3.34 L (3.80-4.90) g/dL Jwbpj-3-Dvplnulie 0.43 H (0.10-0.40) g/dL Anti-Mitochondrial Ab 27.2 H (<=20) UNITS EBV Capsid Ag IgG Intrp POSITIVE A (NEGATIVE) EBV EA IgG Ab Interp POSITIVE A (NEGATIVE) EBV Nuc Ag IgG Interp POSITIVE A (NEGATIVE) 02/09/20 02/09/20 02/09/20 Range/Units 08:40 16:40 18:27 Sodium 124 L (137-145) mmol/L Chloride 95 L (98-107) mmol/L Carbon Dioxide 21 L (22-30) mmol/L BUN 46 H (7-17) mg/dL Glucose (74-99) mg/dL POC Glucose (mg/dL) 118 H (75-99) mg/dL Osmolality 276 L (280-301) mosm/kg Calcium 8.3 L (8.4-10.2) mg/dL Magnesium (1.6-2.3) mg/dL AST (14-36) U/L ALT (4-34) U/L Total Protein (6.3-8.2) g/dL Albumin (3.5-5.0) g/dL Albumin (PEP) (3.80-4.90) g/dL Emqfw-2-Jgnotbehs (0.10-0.40) g/dL Anti-Mitochondrial Ab (<=20) UNITS EBV Capsid Ag IgG Intrp (NEGATIVE) EBV EA IgG Ab Interp (NEGATIVE) EBV Nuc Ag IgG Interp (NEGATIVE) 02/10/20 02/10/20 02/10/20 Range/Units 00:22 06:00 08:18 Sodium 126 L (137-145) mmol/L Chloride (98-107) mmol/L Carbon Dioxide 20 L (22-30) mmol/L BUN 35 H (7-17) mg/dL Glucose 113 H (74-99) mg/dL POC Glucose (mg/dL) 109 H 109 H (75-99) mg/dL Osmolality (280-301) mosm/kg Calcium 7.3 L (8.4-10.2) mg/dL Magnesium 2.7 H (1.6-2.3) mg/dL AST 498 H (14-36) U/L ALT 1194 H (4-34) U/L Total Protein 6.1 L (6.3-8.2) g/dL Albumin 3.2 L (3.5-5.0) g/dL Albumin (PEP) (3.80-4.90) g/dL Pfapp-5-Rshsifweq (0.10-0.40) g/dL Anti-Mitochondrial Ab (<=20) UNITS EBV Capsid Ag IgG Intrp (NEGATIVE) EBV EA IgG Ab Interp (NEGATIVE) EBV Nuc Ag IgG Interp (NEGATIVE) Assessment and Plan Plan: Assessment: 1. Hyponatremia. Appears euvolemic; status post IV fluids yesterday. Sodium level 126 this morning. TSH and cortisol level normal. Urine osmolality 799 and urine sodium less than 10. 2. Third-degree heart block status post temporary pacer placement. Cardiology following. 3. Mild acute kidney injury mostly prerenal. Better. 4. Elevated liver enzymes. GI following. Possibly ischemic hepatitis. AST and ALT trending down. 5. Hyperkalemia secondary to acute kidney injury. Better. 6. Systolic CHF with ejection fraction of 30-35%. Plan: 1200 mL fluid restriction. Encourage oral intake, particularly protein. Added ensure 3 times a day. Maintain sodium chloride tablets. Add Lasix 20 mg orally twice daily. Hold off on Samsc[place] due to elevated AST and ALT. Repeat electrolytes in the morning.
--- NOTE | 2020-02-10 13:14 | P.PN ---
Subjective Progress Note Date: 02/10/20 HISTORY OF PRESENT ILLNESS: Patient is status post externalized pacemaker implant with Dr. Martinez secondary to complete heart block. Telemetry reveals paced rhythm at 60 bpm. Patient denies chest pain or pressure. Denies shortness of breath. She states her nausea and lightheadedness are improving. She continues to feel weak and fatigue. Blood pressure stable. Sodium 126. Potas sium 4.3. LFTs are improved today. AST 498. ALT 1194. PHYSICAL EXAM: VITAL SIGNS: Reviewed. GENERAL: Well-developed in no acute distress. NECK: Supple. No JVD or thyromegaly LUNGS: Respirations even and unlabored. Lungs essentially clear to auscultation bilaterally. HEART: Regular rate and rhythm. S1 and S2 heard. EXTREMITIES: Normal range of motion. No clubbing or cyanosis. Peripheral pulses intact. No lower extremity edema ASSESSMENT: Acute myocarditis Nonischemic cardiomyopathy, EF 30-35%, s/p cardiac cath revealing 30% proximal diagonal disease AV node dissociation, accelerated idioventricular rhythm, intermittent third degree heart block Left bundle branch block, alternating left anterior fascicular and left posterior fascicular block Transaminitis Hyponatremia Hyperkalemia, resolved PLAN: GI following for elevated LFTs Nephrology following for hyponatremia Continue supportive treatment Continue telemetry monitoring Repeat limited echo to assess LV function Patient to have permanent device placed in the future with Dr. Martinez Further recommendations pending patient course Nurse practitioner note has been reviewed by physician. Signing provider agrees with the documented findings, assessment, and plan of care. Objective - Vital Signs Vital signs: Vital Signs Temp 98.0 F 02/10/20 09:15 Pulse 60 02/10/20 09:15 Resp 18 02/10/20 09:15 BP 136/84 02/10/20 09:15 Pulse Ox 94 L 02/10/20 09:15 Intake & Output 02/09/20 02/10/20 02/10/20 18:59 06:59 18:59 Intake Total 1320 575 420 Output Total 800 450 Balance 520 575 -30 Weight 137.4 kg Intake: Intake, IV Titration 425 Amount Sodium Chloride 0.9% 1, 375 000 ml @ 75 mls/hr IV . [id number] [facility] Rx#:[id number] ceFAZolin 1,000 mg In 50 Sodium Chloride 0.9% 50 ml @ 100 mls/hr IVPB Q8H [facility] Rx#:[id number] Oral 1320 150 420 Output: Urine 800 450 Stool 0 Other: Voiding Method Toilet Toilet Toilet # Voids 2 0 # Bowel Movements 0 - Labs CBC & Chem 7: 02/07/20 07:21 02/10/20 08:18 Labs: Abnormal Lab Results - Last 24 Hours (Table) 02/07/20 02/08/20 02/09/20 Range/Units 07:21 08:38 16:40 Sodium (137-145) mmol/L Chloride (98-107) mmol/L Carbon Dioxide (22-30) mmol/L BUN (7-17) mg/dL Glucose (74-99) mg/dL POC Glucose (mg/dL) 118 H (75-99) mg/dL Calcium (8.4-10.2) mg/dL Magnesium (1.6-2.3) mg/dL AST (14-36) U/L ALT (4-34) U/L Total Protein (6.3-8.2) g/dL Albumin (3.5-5.0) g/dL Anti-Mitochondrial Ab 27.2 H (<=20) UNITS EBV Capsid Ag IgG Intrp POSITIVE A (NEGATIVE) EBV EA IgG Ab Interp POSITIVE A (NEGATIVE) EBV Nuc Ag IgG Interp POSITIVE A (NEGATIVE) 02/09/20 02/10/20 02/10/20 Range/Units 18:27 00:22 06:00 Sodium 124 L (137-145) mmol/L Chloride 95 L (98-107) mmol/L Carbon Dioxide 21 L (22-30) mmol/L BUN 46 H (7-17) mg/dL Glucose (74-99) mg/dL POC Glucose (mg/dL) 109 H 109 H (75-99) mg/dL Calcium 8.3 L (8.4-10.2) mg/dL Magnesium (1.6-2.3) mg/dL AST (14-36) U/L ALT (4-34) U/L Total Protein (6.3-8.2) g/dL Albumin (3.5-5.0) g/dL Anti-Mitochondrial Ab (<=20) UNITS EBV Capsid Ag IgG Intrp (NEGATIVE) EBV EA IgG Ab Interp (NEGATIVE) EBV Nuc Ag IgG Interp (NEGATIVE) 02/10/20 02/10/20 Range/Units 08:18 11:53 Sodium 126 L (137-145) mmol/L Chloride (98-107) mmol/L Carbon Dioxide 20 L (22-30) mmol/L BUN 35 H (7-17) mg/dL Glucose 113 H (74-99) mg/dL POC Glucose (mg/dL) 122 H (75-99) mg/dL Calcium 7.3 L (8.4-10.2) mg/dL Magnesium 2.7 H (1.6-2.3) mg/dL AST 498 H (14-36) U/L ALT 1194 H (4-34) U/L Total Protein 6.1 L (6.3-8.2) g/dL Albumin 3.2 L (3.5-5.0) g/dL Anti-Mitochondrial Ab (<=20) UNITS EBV Capsid Ag IgG Intrp (NEGATIVE) EBV EA IgG Ab Interp (NEGATIVE) EBV Nuc Ag IgG Interp (NEGATIVE)
[2020-02-10 13:16] VITALS: BMI 43.4
--- NOTE | 2020-02-10 15:10 | P.PN ---
Subjective Progress Note Date: 02/10/20 Principal diagnosis: Chest pain, non-ST segment elevation myocardial infarction, nonischemic cardiac myopathy, AV disassociation The patient is seen today 02/10/2020 in follow-up on the selective care unit. She is currently awake and alert in no acute distress. Sitting up in a chair at the bedside. Maintaining O2 saturations in the mid 90s on room air. She's afebrile. Hemodynamically stable. Sodium 126. Potassium 4.3. Creatinine 0.75. Magnesium 2.7. She is currently on cefazolin, diuretics, electrolyte replacements. Follow-up echocardiogram continues to show moderate to severely impaired left ventricular systolic function with hypokinesis. Ejection fraction 30-35%. External pacemaker remains in place right subclavian. Objective - Vital Signs Vital signs: Vital Signs Temp 97.9 F 02/10/20 12:35 Pulse 60 02/10/20 12:35 Resp 16 02/10/20 12:35 BP 151/80 02/10/20 12:35 Pulse Ox 97 02/10/20 12:35 Intake & Output 02/09/20 02/10/20 02/10/20 18:59 06:59 18:59 Intake Total 1320 575 660 Output Total 800 450 Balance 520 575 210 Weight 137.4 kg 137.4 kg Intake: Intake, IV Titration 425 Amount Sodium Chloride 0.9% 1, 375 000 ml @ 75 mls/hr IV . [id number] [facility] Rx#:[id number] ceFAZolin 1,000 mg In 50 Sodium Chloride 0.9% 50 ml @ 100 mls/hr IVPB Q8H [facility] Rx#:[id number] Oral 1320 150 660 Output: Urine 800 450 Stool 0 Other: Voiding Method Toilet Toilet Toilet # Voids 2 0 # Bowel Movements 0 - Exam GENERAL EXAM: Alert, active, pleasant 45 year old female, on room air comfortable in no apparent distress. HEAD: Normocephalic. EYES: Normal reaction of pupils, equal size. NOSE: Clear with pink turbinates. THROAT: No erythema or exudates. NECK: No masses, no JVD. CHEST: Distant of the right chest drain intact. LUNGS: Equal air entry with no crackles, wheeze, rhonchi or dullness. CVS: S1 and S2 normal with an audible murmur, regular rhythm. ABDOMEN: No hepatosplenomegaly, normal bowel sounds, no guarding or rigidity. SPINE: No scoliosis or deformity SKIN: No rashes CENTRAL NERVOUS SYSTEM: No focal deficits, tone is normal in all 4 extremities. EXTREMITIES: There is no peripheral edema. No clubbing, no cyanosis. Peripheral pulses are intact. - Labs CBC & Chem 7: 02/07/20 07:21 02/10/20 08:18 Labs: Abnormal Lab Results - Last 24 Hours (Table) 02/07/20 02/08/20 02/09/20 Range/Units 07:21 08:38 16:40 Sodium (137-145) mmol/L Chloride (98-107) mmol/L Carbon Dioxide (22-30) mmol/L BUN (7-17) mg/dL Glucose (74-99) mg/dL POC Glucose (mg/dL) 118 H (75-99) mg/dL Calcium (8.4-10.2) mg/dL Magnesium (1.6-2.3) mg/dL AST (14-36) U/L ALT (4-34) U/L Total Protein (6.3-8.2) g/dL Albumin (3.5-5.0) g/dL Anti-Mitochondrial Ab 27.2 H (<=20) UNITS EBV Capsid Ag IgG Intrp POSITIVE A (NEGATIVE) EBV EA IgG Ab Interp POSITIVE A (NEGATIVE) EBV Nuc Ag IgG Interp POSITIVE A (NEGATIVE) 02/09/20 02/10/20 02/10/20 Range/Units 18:27 00:22 06:00 Sodium 124 L (137-145) mmol/L Chloride 95 L (98-107) mmol/L Carbon Dioxide 21 L (22-30) mmol/L BUN 46 H (7-17) mg/dL Glucose (74-99) mg/dL POC Glucose (mg/dL) 109 H 109 H (75-99) mg/dL Calcium 8.3 L (8.4-10.2) mg/dL Magnesium (1.6-2.3) mg/dL AST (14-36) U/L ALT (4-34) U/L Total Protein (6.3-8.2) g/dL Albumin (3.5-5.0) g/dL Anti-Mitochondrial Ab (<=20) UNITS EBV Capsid Ag IgG Intrp (NEGATIVE) EBV EA IgG Ab Interp (NEGATIVE) EBV Nuc Ag IgG Interp (NEGATIVE) 02/10/20 02/10/20 Range/Units 08:18 11:53 Sodium 126 L (137-145) mmol/L Chloride (98-107) mmol/L Carbon Dioxide 20 L (22-30) mmol/L BUN 35 H (7-17) mg/dL Glucose 113 H (74-99) mg/dL POC Glucose (mg/dL) 122 H (75-99) mg/dL Calcium 7.3 L (8.4-10.2) mg/dL Magnesium 2.7 H (1.6-2.3) mg/dL AST 498 H (14-36) U/L ALT 1194 H (4-34) U/L Total Protein 6.1 L (6.3-8.2) g/dL Albumin 3.2 L (3.5-5.0) g/dL Anti-Mitochondrial Ab (<=20) UNITS EBV Capsid Ag IgG Intrp (NEGATIVE) EBV EA IgG Ab Interp (NEGATIVE) EBV Nuc Ag IgG Interp (NEGATIVE) Assessment and Plan Assessment: 1 Acute myocarditis 2 Nonischemic cardio myopathy with ejection fraction 30-35% 3 AV jaja distress Association, intermittent complete heart block, status post right-sided externalized pacemaker placement 4 Transaminitis 5 Hypovolemic hyponatremia Plan: The patient was seen and evaluated by Dr. Albarado Currently stable from the pulmonary standpoint We will see the patient on as-needed basis Home once cleared by cardiology I, the cosigning physician, performed a history & physical examination of the patient. Lungs sounds are clear. Maintaining good O2 saturations in the 90s on room air. I discussed the assessment and plan of care with my nurse practitio ner, Mariel Tarango. I attest to the above note as dictated by her.
[2020-02-10] MEDS: FUROSEMIDE 20 MG TAB PO SCH (17:35)
[2020-02-10 17:58] LABS: Glucose,Whole Blood 122 mg/dL (75-99)
[2020-02-10 19:47] VITALS: RESP 18
[2020-02-11] MEDS: MORPHINE SULFATE 4 MG/ML SYRINGE IVP PRN ×3 (03:07→13:14)
[2020-02-11 08:38] LABS: AST 232 U/L (14-36); African American GFR (CKD) >90 (>60 ml/min/1.73 sqM); Albumin 3.1 g/dL (3.5-5.0); Alkaline Phosphatase 87 U/L (38-126); Anion Gap 4 mmol/L; Blood Urea Nitrogen 24 mg/dL (7-17); Calcium 7.5 mg/dL (8.4-10.2); Carbon Dioxide 26 mmol/L (22-30); Chloride 101 mmol/L (98-107); Glucose 84 mg/dL (74-99); Magnesium 2.6 mg/dL (1.6-2.3); Non-African American GFR(CKD) >90 (>60 ml/min/1.73 sqM); Potassium 4.2 mmol/L (3.5-5.1); Sodium 131 mmol/L (137-145); Total Bilirubin 0.7 mg/dL (0.2-1.3)
[2020-02-11] MEDS: PANTOPRAZOLE 40 MG TABLET PO SCH (09:05)
[2020-02-11] MEDS: FUROSEMIDE 20 MG TAB PO SCH (09:05)
[2020-02-11] MEDS: MAG HYDROX/AL HYDROX/SIMETH 30 ML CUP PO SCH ×2 (09:06→13:13)
[2020-02-11] MEDS: DULoxetine HCL 20 MG CAPSULE.DR PO SCH (09:06)
[2020-02-11] MEDS: SODIUM CHLORIDE TAB 1 GM TAB PO SCH (09:06)
[2020-02-11 09:08] LABS: ALT 801 U/L (4-34)
--- NOTE | 2020-02-11 10:42 | P.PN ---
Subjective Progress Note Date: 02/11/20 Principal diagnosis: This is a 45-year-old female with his history of alcohol use, was seen because of hyponatremia. Initially her sodium was 134 creatinine 0.8 BUN 36 and in the hospital , went down to 1:30 on 02/07/2020, to 124 on 02/09/2020. She also had significant hyperkalemia potassium is 5.7 on 02/08/2020, in addition to an element of metabolic acidosis with bicarb going down to 18. She had significant hypotension and needed a pacemaker placed. This is also resulted in significant elevation of liver enzymes, the AST was up to 1671 but has come down to 232. Gastroenterology is seeing her for this. While Bartolome are negative except for EB virus serology She was deemed to be volume depleted with IV saline and given sodium has subsequently improved to 131 with addition of sodium tablets and Lasix by mouth started yesterday She denies any nausea vomiting headache fever chills cough shortness of breath she wants to be discharged home She is ambulatory but complains of weakness On examination is awake alert oriented comfortable Her 24-hour intake is documented at 660 output 450 mL. Blood pressure is 108/68 heart rate is 87 and temperature 98.5 HEENT exam no JVP neck is supple no facial asymmetry Lungs are clear to auscultation good air entry bilaterally Heart sounds are unremarkable for any murmur rub gallop Abdomen soft nontender Extremity exam reveals no edema Neurologically awake alert oriented Labs done this morning sodium is 131 potassium 4.2 chloride 101 bicarb 26 Creatinine 0.61 BNS 74 Calcium 7.5 magnesium 2.6 albumin is 3.1 AST is down to 232 ALTs down to 801 bilirubin is normal at 0.7 Impression 1. Significant hyponatremia likely from volume depletion and hypotension, improving with fluid restriction and salt tablets and Lasix by mouth 2. Hypotension induced liver function abnormalities improving 3 history of EtOH 4. Pacemaker, cardiomyopathy nonischemic with ejection fraction 30-35% with intermittent complete heart block status post external pacemaker Recommendation 1. Maintain current management with salt tablets free water restriction and follow-up labs Objective - Vital Signs Vital signs: Vital Signs Temp 98.5 F 02/11/20 03:21 Pulse 87 02/11/20 03:21 Resp 18 02/11/20 03:21 BP 108/68 02/11/20 03:21 Pulse Ox 100 02/11/20 03:21 Intake & Output 02/10/20 02/11/20 02/11/20 18:59 06:59 18:59 Intake Total 660 361 Output Total 450 0 Balance 210 0 361 Weight 137.4 kg 167 kg Intake: Oral 660 361 Output: Urine 450 Stool 0 0 Other: Voiding Method Toilet Toilet # Voids 0 # Bowel Movements 0 - Labs CBC & Chem 7: 02/07/20 07:21 02/11/20 07:13 Labs: Abnormal Lab Results - Last 24 Hours (Table) 02/08/20 02/10/20 02/10/20 Range/Units 08:38 11:53 17:55 Sodium (137-145) mmol/L BUN (7-17) mg/dL POC Glucose (mg/dL) 122 H 122 H (75-99) mg/dL Calcium (8.4-10.2) mg/dL Magnesium (1.6-2.3) mg/dL AST (14-36) U/L ALT (4-34) U/L Total Protein (6.3-8.2) g/dL Albumin (3.5-5.0) g/dL Anti-Mitochondrial Ab 27.2 H (<=20) UNITS 02/11/20 Range/Units 07:13 Sodium 131 L (137-145) mmol/L BUN 24 H (7-17) mg/dL POC Glucose (mg/dL) (75-99) mg/dL Calcium 7.5 L (8.4-10.2) mg/dL Magnesium 2.6 H (1.6-2.3) mg/dL AST 232 H (14-36) U/L ALT 801 H (4-34) U/L Total Protein 6.0 L (6.3-8.2) g/dL Albumin 3.1 L (3.5-5.0) g/dL Anti-Mitochondrial Ab (<=20) UNITS
[2020-02-11 11:07] VITALS: TEMP 97.9
--- NOTE | 2020-02-11 11:42 | P.PN ---
Subjective Progress Note Date: 02/11/20 HISTORY OF PRESENT ILLNESS: Patient is status post externalized pacemaker implant with Dr. Martinez secondary to complete heart block. Telemetry reveals paced rhythm. Patient denies chest pain or pressure. Denies shortness of breath. She reports improvement in her nausea. She is tearful and is requesting to be discharged home today. Sodium 131. AST 232. ALT 801. Repeat echocard iogram reveals ejection fraction 3035% PHYSICAL EXAM: VITAL SIGNS: Reviewed. GENERAL: Well-developed in no acute distress. NECK: Supple. No JVD or thyromegaly LUNGS: Respirations even and unlabored. Lungs essentially clear to auscultation bilaterally. HEART: Regular rate and rhythm. S1 and S2 heard. EXTREMITIES: Normal range of motion. No clubbing or cyanosis. Peripheral pulses intact. 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 Martinez Patient may be discharged home today from a cardiac standpoint with external pacer. She is to follow up with Dr. Martinez. Nurse practitioner note has been reviewed by physician. Signing provider agrees with the documented findings, assessment, and plan of care. Objective - Vital Signs Vital signs: Vital Signs Temp 97.9 F 02/11/20 08:00 Pulse 76 02/11/20 08:00 Resp 18 02/11/20 03:21 BP 130/83 02/11/20 08:00 Pulse Ox 95 02/11/20 08:00 Intake & Output 02/10/20 02/11/20 02/11/20 18:59 06:59 18:59 Intake Total 660 361 Output Total 450 0 Balance 210 0 361 Weight 137.4 kg 167 kg Intake: Oral 660 361 Output: Urine 450 Stool 0 0 Other: Voiding Method Toilet Toilet # Voids 0 # Bowel Movements 0 - Labs CBC & Chem 7: 02/07/20 07:21 02/11/20 07:13 Labs: Abnormal Lab Results - Last 24 Hours (Table) 02/10/20 02/10/20 02/11/20 Range/Units 11:53 17:55 07:13 Sodium 131 L (137-145) mmol/L BUN 24 H (7-17) mg/dL POC Glucose (mg/dL) 122 H 122 H (75-99) mg/dL Calcium 7.5 L (8.4-10.2) mg/dL Magnesium 2.6 H (1.6-2.3) mg/dL AST 232 H (14-36) U/L ALT 801 H (4-34) U/L Total Protein 6.0 L (6.3-8.2) g/dL Albumin 3.1 L (3.5-5.0) g/dL
--- NOTE | 2020-02-11 11:59 | PN ---
PROGRESS NOTE DATE OF DICTATION: February 11, 2020 Patient is a 45-year-old pleasant white female, history of alcohol abuse and complete heart block, admitted to the hospital 3 days ago and was noted to have elevated serum transaminases for which we are following her closely. Her serum transaminases are gradually improving. She denies any abdominal pain. No nausea, no vomiting. No fever, chills, night sweats. PHYSICAL EXAMINATION: She appears comfortable. No apparent distress. VITAL SIGNS: Stable. Blood pressure is 108/64, pulse rate 87, temperature 98.7. HEENT: Examination unremarkable. Conjunctivae pink. Sclerae anicteric. Oral cavity, no lesions. NECK: No JVD or lymph node enlargement. CHEST: Was clear to auscultation. HEART: Regular rate and rhythm. ABDOMEN: Soft. Bowel sounds are positive. No organomegaly. EXTREMITIES: No pedal edema. SKIN: No rashes. NEUROLOGIC: Alert and oriented x3. No focal deficits. LABS: Hepatitis serologies for A, B and C are negative. CMV IgM antibody negative. EBV IgM antibody negative: Coronavirus PCR is negative. Lyme antibody is negative. IMPRESSION: 1. Acute hepatocellular injury with significant elevation of serum transaminases which are gradually improving. Today AST is down to 232 and ALT is down to 801. T bilirubin and alkaline phosphatase are within normal limits. Most likely dealing with ischemic hepatitis from hypoperfusion secondary to recent complete heart block. Her serum transaminases are gradually improving. Viral serologies were all negative. 2. Mild hyponatremia. Nephrology following the patient closely. 3. History of complete heart block. Cardiology following the patient closely. RECOMMENDATION: 1. Monitor LFTs closely. 2. No need for any further workup. 3. Avoid hepatotoxic medications. 4. Repeat labs in the morning and will follow with you. Thank you for this consultation. MMODL / IJN: [id number] /
--- NOTE | 2020-02-11 12:45 | P.DS ---
Providers Date of admission: 02/05/20 05:35 Attending physician: Anita Stewart Consults: 02/05/20 05:33 Consult Physician Urgent Consulting Provider: Louie Le Consult Reason/Comments: ACS Do you want consulting provider notified?: Yes 02/07/20 08:13 Consult Physician Routine Consulting Provider: Teddy Solano Consult Reason/Comments: ICU management Do you want consulting provider notified?: Yes 02/07/20 08:46 Consult Physician Routine Consulting Provider: Mason Gillespie Consult Reason/Comments: elevated ast and alt Do you want consulting provider notified?: Yes 02/07/20 09:01 Consult Physician Urgent Consulting Provider: Mason Gillespie Consult Reason/Comments: elevated liver enzymes Do you want consulting provider notified?: Yes 02/09/20 09:17 Consult Physician Routine Consulting Provider: Silverio Phelan Consult Reason/Comments: Hyponatremia Do you want consulting provider notified?: Yes Primary care physician: Stated None Hospital Course: 45-year-old female came in with compensative severe neck pain radiating to the shoulder and the arms with tingling and numbness in the fifth fingers in the left hand. Patient appears to have severe sepsis or cervical cephalalgia as well. Patient appears to have cervical degenerative disc disease. Although patient is found to have elevated troponins because of which patient underwent cardiac catheterization which did not show any significant occlusive disease that can explain the elevation of troponin and there was concern for stress- induced cardiomyopathy or takutsubo syndrome. Patient was also complaining of some diaphoresis shortness of breath and chest pain. Patient when questioned admits to significant stress anxiety and depression at home. Cardiology evaluated the patient and the there concerned about viral cardiomyopathy although patient denied any recent the viral illness or similar symptoms. 02/06/2020 Patient is euvolemic clinically not requiring any oxygen. IV fluids were discontinued. Patient was evaluated by pain management as cervical spine x-ray showing degenerative disease although mild patient is still complaining of severe nausea Maalox will be added. 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 02/07/2020 Patient is still complaining of nausea and dizziness and some shortness of breath patient SAT Down to 94%. IV Fluids Were Discontinued Chest X-Ray Will Be Obtained. Patient Blood Pressure Is Borderline and Fairly Okay. Patient Will Need a Biventricular AICD. Please Refer to Cardiology Documentation for Further Details. As per Cardiology Patient Is Not a Good Candidate for Emergency Transvenous Pacemaker. 02/08/2020 Patient is still diaphoretic still complaining of nausea because of her elevated the liver enzymes patient is off [place] present is presently getting morphine patient is an not undergoing any pacemaker placement at this time cardiology will reevaluate and the will decide on further plans. Patient is bit hyponatremic but patient is not failure will just monitor the serum sodium will order hyponatremia labs including travel specialist cortisol, urine and serum osmolality urine random sodium. Patient already had a TSH which was within normal limits. If her sodium continues to go down then patient may need to be evaluated by nephrology patient doesn't appear to be hypovolemic will fluid restrict her to 1500 mL per day 02/09/2020 Patient's lab was a significantly improved nausea improved as well. Although patient is hyponatremic A gave her a dose of Lasix is without any significant improvement. Serum cortisol is within normal limits urine random sodium urine random creatinine is still pending patient liver enzymes continue to go up all the workup so far for elevated liver enzymes or transaminitis were negative.. Multiple consultants including gastroenterology or following the patient. We'll consult gastroenterology for hyponatremia. 02/10/2020 Patient's transaminitis is getting better cardiology will put a permanent pacemaker or defibrillator once the liver enzymes come down liver enzymes today are significantly better. gastroenterology believes this is medication induced or viral. Patient urinary sodium is low appears to have hypovolemic hyponatremia was started on IV fluids. Nephrology evaluated the patient. Nausea is significantly better 02/11/2020 Patient is a temporary pacemaker presently and the cardiology wanted to be evaluated as an outpatient before they do any permanent pacemaker or defibrillator. Patient hyponatremia improved cardiology is recommending salt tablets with Lasix patient may have had SIADH may have had euvolemic hyponatremia. Patient liver enzymes are coming down which showed believed to be elevated because of the medications because of which Tylenol-based medications are being discontinued at this time. She and is presently euvolemic without any heart failure exacerbation PHYSICAL EXAMINATION: GENERAL: The patient is alert and oriented x3, not in any acute distress. Obese is significantly, looks much better today has an external pacemaker HEENT: Pupils are round and equally reacting to light. EOMI. No scleral icterus. No conjunctival pallor. Normocephalic, atraumatic. No pharyngeal erythema. No thyromegaly. CARDIOVASCULAR: S1 and S2 present. No murmurs, rubs, or gallops. PULMONARY: Chest is clear to auscultation, no wheezing or crackles. ABDOMEN: Soft, nontender, nondistended, normoactive bowel sounds. No palpable organomegaly. MUSCULOSKELETAL: No joint swelling or deformity. EXTREMITIES: No cyanosis, clubbing, or pedal edema. NEUROLOGICAL: Gross neurological examination did not reveal any focal deficits. SKIN: No rashes. Assessment and Plan Plan: -Elevated troponins: Most probably secondary to viral myocarditis or stress- induced cardiomyopathy patient is status post cardiac catheterization no evidence of significant atherosclerotic occlusive disease. Patient has complete heart block as per cardiology and has an external pacemaker . -Hyponatremia: Euvolemic hyponatremia hyponatremia patient's sodium improved with salt tablets and Lasix nephrology is recommending those with a close follow-up on Saturday with nephrology. Congestive heart failure chronic systolic dysfunction, not in acute exacerbation and clinically is not in heart failure exacerbation at this time 1 elevated liver enzymes: Probably secondary to medications Tylenol -based medications were discontinued, and etiology cannot be ruled out -Nausea probably secondary to third-degree heart block improved now after pacemaker placement -Depression, anxiety: Patient is on Cymbalta which is also helpful for peripheral neuropathy. 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 Patient Condition at Discharge: Serious Plan - Discharge Summary Discharge Rx Participant: No New Discharge Prescriptions: New DULoxetine HCL [Cymbalta] 20 mg PO DAILY #30 capsule. Furosemide [Lasix] 20 mg PO BID@0900,1600 #30 tab Sodium Chloride Tab 1 gm PO TID #60 tab Omeprazole [PriLOSEC] 40 mg PO AC-BRKFST #14 capsule. Continue Ondansetron Odt [Zofran ODT] 4 mg PO BID PRN PRN Reason: Nausea Ibuprofen [Motrin Ib] 600 mg PO Q8H PRN PRN Reason: Pain Discontinued [id number] [Excedrin] 2 tab PO Q4HR PRN PRN Reason: Pain Butalb/APAP/Caff 50-325-40Mg [Fioricet 50-325-40] 1 tab PO BID PRN PRN Reason: Migraine Headache Discharge Medication List Ibuprofen [Motrin Ib] 600 mg PO Q8H PRN 02/05/20 [History] Ondansetron Odt [Zofran ODT] 4 mg PO BID PRN 02/05/20 [History] DULoxetine HCL [Cymbalta] 20 mg PO DAILY #30 capsule. 02/11/20 [Rx] Furosemide [Lasix] 20 mg PO BID@0900,1600 #30 tab 02/11/20 [Rx] Omeprazole [PriLOSEC] 40 mg PO AC-BRKFST #14 capsule. 02/11/20 [Rx] Sodium Chloride Tab 1 gm PO TID #60 tab 02/11/20 [Rx] Follow up Appointment(s)/Referral(s): Xander Martinez MD [STAFF PHYSICIAN] - 1 Week Ralph Corrales MD [REFERRING] - Naz Bartlett MD [STAFF PHYSICIAN] - 1 Week [facility], [NON-STAFF] - Silevrio Phelan DO [STAFF PHYSICIAN] - 02/15/20 Patient Instructions/Handouts: Heart Block (ED), Pacemaker (GEN) Discharge Disposition: HOME WITH HOME HEALTH SERVICES
[2020-02-11 15:08] VITALS: BP 123/72; PULSE 85
[2020-02-14 09:30] LABS: Glucose,Whole Blood 102 mg/dL (75-99)
[2020-02-14 09:30] LABS: Glucose,Whole Blood 106 mg/dL (75-99)
== END 2020-02-11 15:15 | disposition home health service (06) | DRG 260 ==
LOC: EC 05:07 → 2SICU 05:35 → 3SCARD 06:50
PROVIDERS: ADMIT Hospitalist; ATTEND Hospitalist
PROC: B2111ZZ Fluoroscopy of Multiple Coronary Arteries using Low Osmolar Contrast (ICD-10-PCS; 2020-02-05)
PROC: 02HK3JZ Insertion of Pacemaker Lead into Right Ventricle, Percutaneous Approach (ICD-10-PCS; principal; 2020-02-08 11:00)
PROC: B51M1ZZ Fluoroscopy of Right Upper Extremity Veins using Low Osmolar Contrast (ICD-10-PCS; principal; 2020-02-08 11:00)
DX: I51.81 Takotsubo syndrome (principal); I21.4 Non-ST elevation (NSTEMI) myocardial infarction; I40.0 Infective myocarditis; I44.2 Atrioventricular block, complete; N17.9 Acute kidney failure, unspecified; E87.1 Hypo-osmolality and hyponatremia; I50.22 Chronic systolic (congestive) heart failure; E87.2 Acidosis; Z68.43 Body mass index [BMI] 50.0-59.9, adult; I45.89 Other specified conduction disorders; I31.3 Pericardial effusion (noninflammatory); I95.9 Hypotension, unspecified; F31.9 Bipolar disorder, unspecified; G40.909 Epilepsy, unspecified, not intractable, without status epilepticus; E66.9 Obesity, unspecified; K75.89 Other specified inflammatory liver diseases; K76.1 Chronic passive congestion of liver; E86.1 Hypovolemia; E87.5 Hyperkalemia; Z20.828 Contact with and (suspected) exposure to other viral communicable diseases; R00.1 Bradycardia, unspecified; I44.4 Left anterior fascicular block; I44.5 Left posterior fascicular block; Z86.19 Personal history of other infectious and parasitic diseases; G44.209 Tension-type headache, unspecified, not intractable; I44.7 Left bundle-branch block, unspecified; M50.10 Cervical disc disorder with radiculopathy, unspecified cervical region; K21.9 Gastro-esophageal reflux disease without esophagitis; G62.9 Polyneuropathy, unspecified; G89.29 Other chronic pain; M54.9 Dorsalgia, unspecified; F41.9 Anxiety disorder, unspecified; M19.90 Unspecified osteoarthritis, unspecified site; F10.11 Alcohol abuse, in remission; F12.10 Cannabis abuse, uncomplicated; F17.210 Nicotine dependence, cigarettes, uncomplicated; Z71.6 Tobacco abuse counseling; Z79.82 Long term (current) use of aspirin; Z79.899 Other long term (current) drug therapy; Z98.84 Bariatric surgery status; Z90.49 Acquired absence of other specified parts of digestive tract; Z87.19 Personal history of other diseases of the digestive system; Z87.39 Personal history of other diseases of the musculoskeletal system and connective tissue; Z98.890 Other specified postprocedural states; Z88.5 Allergy status to narcotic agent; Z88.8 Allergy status to other drugs, medicaments and biological substances; Z91.018 Allergy to other foods; Z80.8 Family history of malignant neoplasm of other organs or systems; Z82.49 Family history of ischemic heart disease and other diseases of the circulatory system
CPT/HCPCS: 33210; 36415; 71045; 71046; 72052; 76705; 80048; 80053; 80061; 80074; 80306; 82103; 82105; 82164; 82308; 82390; 82533; 82550; 82553; 82728; 83516; 83735; 83880; 83930; 83935; 84132; 84165; 84300; 84443; 84484; 85025; 85049; 85347; 85610; 85652; 85730; 86038; 86140; 86376; 86618; 86644; 86645; 86658; 86663; 86664; 86665; 86747; 86769; 87521; 87635; 93005; 93306; 93308; 93454; 96361; 96374; 96375; 99291

== ENCOUNTER 2020-02-17 18:01 | Inpatient (IN) | payer MEDICARE, OTHER ==
--- NOTE | 2020-02-17 18:24 | ED ---
General Adult HPI - General Chief complaint: Chest Pain Stated complaint: told by PCP to come in Time Seen by Provider: 02/17/20 18:05 Source: patient, RN notes reviewed, old records reviewed Mode of arrival: ambulatory Limitations: no limitations - History of Present Illness Initial comments: This is a 45-year-old female with a past history significant for myocarditis and a temporary pacemaker placement. Patient states that pacemaker is been causing her problems pain and according to Dr. Martinez there is a malfunctioning bleeding he wanted the patient to come to the hospital and get admitted. Patient states there is just pain around the site of the external pacemaker. Patient denies any anterior chest pain or pressure. Patient has any difficulty breathing shortest breath per patient denies any diaphoretic. Patient denies any recent fever chills or cough. Patient denies any lightheadedness or dizziness. Patient denies abdominal pain patient denies nausea vomiting diarrhea. - Related Data Home Medications Medication Instructions Recorded Confirmed Ibuprofen [Motrin Ib] 600 mg PO Q8H PRN 02/05/20 02/05/20 Ondansetron Odt [Zofran ODT] 4 mg PO BID PRN 02/05/20 02/05/20 Previous Rx's Medication Instructions Recorded DULoxetine HCL [Cymbalta] 20 mg PO DAILY #30 capsule. 02/11/20 Furosemide [Lasix] 20 mg PO BID@0900,1600 #30 tab 02/11/20 Omeprazole [PriLOSEC] 40 mg PO AC-BRKFST #14 capsule. 02/11/20 Sodium Chloride Tab 1 gm PO TID #60 tab 02/11/20 Allergies Allergy/AdvReac Type Severity Reaction Status Date / Time ketorolac tromethamine Allergy Rash/Hives Verified 02/17/20 18:03 [From Toradol] mushroom Allergy Unknown Verified 02/17/20 18:03 tramadol AdvReac SEIZURES Verified 02/17/20 18:03 Review of Systems ROS Statement: Those systems with pertinent positive or pertinent negative responses have been documented in the HPI. ROS Other: All systems not noted in ROS Statement are negative. Past Medical History Past Medical History: Seizure Disorder, Thyroid Disorder Additional Past Medical History / Comment(s): BACK PAIN, ARTHRITIS, low thyroid hormone History of Any Multi-Drug Resistant Organisms: None Reported Past Surgical History: Bariatric Surgery, Cholecystectomy, Orthopedic Surgery, Pacemaker Additional Past Surgical History / Comment(s): LAP BAND, left foot Past Anesthesia/Blood Transfusion Reactions: No Reported Reaction, Motion Sickness Past Psychological History: Anxiety, Bipolar, Depression Smoking Status: Current every day smoker Past Alcohol Use History: None Reported Past Drug Use History: Marijuana - Past Family History Father Family Medical History: Cancer Additional Family Medical History / Comment(s): Father of brain cancer at the age of 77yrs. Mother Additional Family Medical History / Comment(s): Mother of "heart problems" at the age of 62 yrs. General Exam - General Exam Comments Initial Comments: GENERAL: Patient is well-developed and well-nourished. Patient is nontoxic and well- hydrated and is in mild distress. ENT: Neck is soft and supple. No significant lymphadenopathy is noted. Oropharynx is clear. Moist mucous membranes. Neck has full range of motion without eliciting any pain. EYES: The sclera were anicteric and conjunctiva were pink and moist. Extraocular movements were intact and pupils were equal round and reactive to light. Eyelids were unremarkable. PULMONARY: Unlabored respirations. Good breath sounds bilaterally. No audible rales rhonchi or wheezing was noted. CARDIOVASCULAR: There is a regular rate and rhythm without any murmurs gallops or rubs. Pacemaker site is tender but no different according the patient ABDOMEN: Soft and nontender with normal bowel sounds. SKIN: Skin is clear with no lesions or rashes and otherwise unremarkable. NEUROLOGIC: Patient is alert and oriented x3. Cranial nerves II through XII are grossly intact. Motor and sensory are also intact. Normal speech, volume and content. Symmetrical smile. MUSCULOSKELETAL: Normal extremities with adequate strength and full range of motion. No lower extremity swelling or edema. No calf tenderness. LYMPHATICS: No significant lymphadenopathy is noted PSYCHIATRIC: Normal psychiatric evaluation. Limitations: no limitations Course Vital Signs 02/17/20 18:04 Temperature 99 F Pulse Rate 110 H Respiratory 18 Rate Blood Pressure 137/67 O2 Sat by Pulse 97 Oximetry Medical Decision Making - Medical Decision Making EKG shows sinus tachycardia at 105 bpm [place] interval is 264 QRS is 1 week QT interval 382 QTC is 5.4. Patient's EKG shows T-wave inversions in V1 through the thighs. As well as 1 and aVL. Chest x-ray shows no acute abnormality. Dr. Martinez called and wanted the patient admitted for a malfunctioning lead pacemaker. I spoke with Dr. Stewart's physician marketing support assistant he agreed to admit the patient admitted the patient wrote admitting orders. - Lab Data Result diagrams: 02/17/20 18:28 02/17/20 18:28 Lab Results 02/17/20 02/17/20 02/17/20 Range/Units 18:28 18:28 18:28 WBC 5.6 (3.8-10.6) k/uL RBC 4.14 (3.80-5.40) m/uL Hgb 12.2 (11.4-16.0) gm/dL Hct 36.6 (34.0-46.0) % MCV 88.2 (80.0-100.0) fL MCH 29.6 (25.0-35.0) pg MCHC 33.5 (31.0-37.0) g/dL RDW 13.7 (11.5-15.5) % Plt Count 190 (150-450) k/uL MPV 6.5 Neutrophils % 60 % Lymphocytes % 28 % Monocytes % 6 % Eosinophils % 2 % Basophils % 1 % Neutrophils # 3.4 (1.3-7.7) k/uL Lymphocytes # 1.6 (1.0-4.8) k/uL Monocytes # 0.4 (0-1.0) k/uL Eosinophils # 0.1 (0-0.7) k/uL Basophils # 0.1 (0-0.2) k/uL Hypochromasia Slight ESR 28 H (0-20) mm/hr PT 9.9 (9.0-12.0) sec INR 0.9 (<1.2) APTT 25.1 (22.0-30.0) sec Sodium 135 L (137-145) mmol/L Potassium 4.9 (3.5-5.1) mmol/L Chloride 108 H (98-107) mmol/L Carbon Dioxide 23 (22-30) mmol/L Anion Gap 4 mmol/L BUN 18 H (7-17) mg/dL Creatinine 0.48 L (0.52-1.04) mg/dL Est GFR (CKD-EPI)AfAm >90 (>60 ml/min/1.73 sqM) Est GFR (CKD-EPI)NonAf >90 (>60 ml/min/1.73 sqM) Glucose 99 (74-99) mg/dL Calcium 8.7 (8.4-10.2) mg/dL Magnesium 2.0 (1.6-2.3) mg/dL Total Bilirubin 0.5 (0.2-1.3) mg/dL AST 52 H (14-36) U/L ALT 139 H (4-34) U/L Alkaline Phosphatase 60 (38-126) U/L Troponin I (0.000-0.034) ng/mL C-Reactive Protein 6.3 (<10.0) mg/L Total Protein 6.3 (6.3-8.2) g/dL Albumin 3.2 L (3.5-5.0) g/dL 02/17/20 Range/Units 18:28 WBC (3.8-10.6) k/uL RBC (3.80-5.40) m/uL Hgb (11.4-16.0) gm/dL Hct (34.0-46.0) % MCV (80.0-100.0) fL MCH (25.0-35.0) pg MCHC (31.0-37.0) g/dL RDW (11.5-15.5) % Plt Count (150-450) k/uL MPV Neutrophils % % Lymphocytes % % Monocytes % % Eosinophils % % Basophils % % Neutrophils # (1.3-7.7) k/uL Lymphocytes # (1.0-4.8) k/uL Monocytes # (0-1.0) k/uL Eosinophils # (0-0.7) k/uL Basophils # (0-0.2) k/uL Hypochromasia ESR (0-20) mm/hr PT (9.0-12.0) sec INR (<1.2) APTT (22.0-30.0) sec Sodium (137-145) mmol/L Potassium (3.5-5.1) mmol/L Chloride (98-107) mmol/L Carbon Dioxide (22-30) mmol/L Anion Gap mmol/L BUN (7-17) mg/dL Creatinine (0.52-1.04) mg/dL Est GFR (CKD-EPI)AfAm (>60 ml/min/1.73 sqM) Est GFR (CKD-EPI)NonAf (>60 ml/min/1.73 sqM) Glucose (74-99) mg/dL Calcium (8.4-10.2) mg/dL Magnesium (1.6-2.3) mg/dL Total Bilirubin (0.2-1.3) mg/dL AST (14-36) U/L ALT (4-34) U/L Alkaline Phosphatase (38-126) U/L Troponin I 0.065 H* (0.000-0.034) ng/mL C-Reactive Protein (<10.0) mg/L Total Protein (6.3-8.2) g/dL Albumin (3.5-5.0) g/dL Disposition Clinical Impression: Pacemaker malfunction Disposition: ADMITTED IP TO THIS HOSP Referrals: Ralph Corrales MD [Primary Care Provider] - 1-2 days Time of Disposition: 20:30
[2020-02-17 18:49] LABS: Basophils # (A) 0.1 k/uL (0-0.2); Basophils % (A) 1 %; Eosinophils # (A) 0.1 k/uL (0-0.7); Eosinophils % (A) 2 %; HCT 36.6 % (34.0-46.0); HGB 12.2 gm/dL (11.4-16.0); Hypochromasia Slight; Lymphocytes # (A) 1.6 k/uL (1.0-4.8); Lymphocytes % (A) 28 %; MCH 29.6 pg (25.0-35.0); MCHC 33.5 g/dL (31.0-37.0); MCV 88.2 fL (80.0-100.0); Mean Platelet Volume 6.5; Monocytes # (A) 0.4 k/uL (0-1.0); Monocytes % (A) 6 %; Neutrophils # (A) 3.4 k/uL (1.3-7.7); Neutrophils % (A) 60 %; Platelet Count 190 k/uL (150-450); RBC 4.14 m/uL (3.80-5.40); RDW 13.7 % (11.5-15.5); WBC 5.6 k/uL (3.8-10.6)
[2020-02-17 19:03] LABS: ALT 139 U/L (4-34); AST 52 U/L (14-36); African American GFR (CKD) >90 (>60 ml/min/1.73 sqM); Albumin 3.2 g/dL (3.5-5.0); Alkaline Phosphatase 60 U/L (38-126); Anion Gap 4 mmol/L; Blood Urea Nitrogen 18 mg/dL (7-17); C Reactive Protein 6.3 mg/L (<10.0); Calcium 8.7 mg/dL (8.4-10.2); Carbon Dioxide 23 mmol/L (22-30); Chloride 108 mmol/L (98-107); Glucose 99 mg/dL (74-99); Non-African American GFR(CKD) >90 (>60 ml/min/1.73 sqM); Potassium 4.9 mmol/L (3.5-5.1); Sodium 135 mmol/L (137-145); Total Bilirubin 0.5 mg/dL (0.2-1.3); Total Protein 6.3 g/dL (6.3-8.2)
[2020-02-17 19:06] LABS: INR 0.9 (<1.2); Partial Thromboplastin Time 25.1 sec (22.0-30.0); Prothrombin Time 9.9 sec (9.0-12.0)
--- NOTE | 2020-02-17 19:14 | XR ---
EXAMINATION TYPE: XR chest 2V DATE OF EXAM: 02/17/2020 COMPARISON: 02/08/2020 HISTORY: Chest pain TECHNIQUE: Single view FINDINGS: There is no heart failure nor confluent pneumonic infiltrate. Costophrenic angles are clear . There is right axillary pacemaker. Heart size is fairly normal. Bony thorax is intact. IMPRESSION: No active cardiopulmonary disease. No significant change.
[2020-02-17 19:38] LABS: Erythrocyte Sedimentation Rate 28 mm/hr (0-20)
[2020-02-17] MEDS ORDERED: NITROGLYCERIN SL TABS 0.4 MG TAB SUBLINGUAL PRN (20:46)
[2020-02-17] MEDS: HYDROmorphone 0.5 MG/0.5 ML SYRINGE IVP PRN (21:27)
[2020-02-18] MEDS: HYDROmorphone 0.5 MG/0.5 ML SYRINGE IVP PRN ×6 (01:01→21:37)
[2020-02-18 03:22] LABS: Cholesterol 111 mg/dL (<200); HDL Cholesterol 33 mg/dL (40-60); LDL Cholesterol,Calculated 64 mg/dL (0-99); Triglycerides 70 mg/dL (<150)
--- NOTE | 2020-02-18 08:11 | P.CRDCN ---
History of Present Illness Consult date: 02/18/20 History of present illness: This is a very pleasant 45-year-old female patient who was diagnosed recently with acute myocarditis complicated by cardiomyopathy and also third degree AV block intermittently who underwent externalized pacemaker via right axillary approach. The patient was asked to come to the hospital yesterday. Apparently she called complaining of right arm discomfort and discomfort above the pacemaker. Because of that she was advised to come to the emergency department. Clinically the patient denies any symptoms of chest pain or chest discomfort or shortness of breath or any dizziness or lightheadedness or feeling of heart racing or fluttering or syncope. Hemodynamically she is stable with a chest x- ray did not show any acute abnormalities. EKG showed sinus rhythm with first- degree AV block. The patient currently is nothing by mouth to have another electrophysiology procedure by Dr. Bear in. Past Medical History Past Medical History: Seizure Disorder, Thyroid Disorder Additional Past Medical History / Comment(s): BACK PAIN, ARTHRITIS, low thyroid hormone, migrane History of Any Multi-Drug Resistant Organisms: None Reported Past Surgical History: Bariatric Surgery, Cholecystectomy, Orthopedic Surgery, Pacemaker Additional Past Surgical History / Comment(s): LAP BAND, left foot; temp pace maker 02/08/20 Past Anesthesia/Blood Transfusion Reactions: No Reported Reaction, Motion Sickness Type of Cardiac Device: Unknown Device Placement Date:: 02/07 Past Psychological History: Anxiety, Bipolar, Depression Additional Psychological History / Comment(s): Pt resides with her significant other. They have a dog. She states she does not have a drivers license. She uses the bus to get to appts. Smoking Status: Current every day smoker Past Alcohol Use History: None Reported Additional Past Alcohol Use History / Comment(s): Pt started smoking in 1989 and is a ppd smoker. She used to drink a bottle of wine a day but quit that years ago. Past Drug Use History: Marijuana Additional Drug Use History / Comment(s): Pt states she overused opiates in the past but no longer a problem for years. - Past Family History Father Family Medical History: Cancer Additional Family Medical History / Comment(s): Father of brain cancer at the age of 77yrs. Mother Additional Family Medical History / Comment(s): Mother of "heart problems" at the age of 62 yrs. Medications and Allergies Home Medications Medication Instructions Recorded Confirmed Type Ibuprofen [Motrin Ib] 600 mg PO Q8H PRN 02/05/20 02/17/20 History Ondansetron Odt [Zofran ODT] 4 mg PO BID PRN 02/05/20 02/17/20 History DULoxetine HCL [Cymbalta] 20 mg PO DAILY #30 capsule. 02/11/20 02/17/20 Rx Furosemide [Lasix] 20 mg PO BID@0900,1600 #30 tab 02/11/20 02/17/20 Rx Omeprazole [PriLOSEC] 40 mg PO AC-BRKFST #14 capsule. 02/11/20 02/17/20 Rx Sodium Chloride Tab 1 gm PO TID #60 tab 02/11/20 02/17/20 Rx Allergies Allergy/AdvReac Type Severity Reaction Status Date / Time ketorolac tromethamine Allergy Rash/Hives Verified 02/17/20 21:12 [From Toradol] mushroom Allergy Unknown Verified 02/17/20 21:12 tramadol AdvReac SEIZURES Verified 02/17/20 21:12 Physical Exam Vitals: Vital Signs Temp Pulse Pulse Resp BP BP BP 02/18/20 04:00 80 17 113/59 02/18/20 01:51 80 18 02/18/20 00:00 98.0 F 90 18 165/82 02/17/20 22:40 98.0 F 90 18 165/82 02/17/20 21:24 98.5 F 88 18 110/75 02/17/20 20:00 89 18 109/69 02/17/20 18:04 99 F 110 H 18 137/67 Pulse Ox 02/18/20 04:00 96 02/18/20 01:51 02/18/20 00:00 98 02/17/20 22:40 98 02/17/20 21:24 95 02/17/20 20:00 95 02/17/20 18:04 97 Intake and Output 02/17/20 02/18/20 02/18/20 22:59 06:59 14:59 Intake Total 0 Balance 0 Intake: Oral 0 Other: Voiding Method Toilet # Voids 2 Weight 130.181 kg 135.8 kg - Constitutional General appearance: no acute distress - Respiratory Respiratory: bilateral: CTA - Cardiovascular Rhythm: regular Heart sounds: normal: S1, S2 Results 02/17/20 18:28 02/17/20 18:28 Cardiac Enzymes 02/17/20 02/17/20 02/17/20 Range/Units 18:28 18:28 22:00 AST 52 H (14-36) U/L Troponin I 0.065 H* 0.065 H* (0.000-0.034) ng/mL 02/18/20 Range/Units 00:27 AST (14-36) U/L Troponin I 0.057 H* (0.000-0.034) ng/mL Coagulation 02/17/20 Range/Units 18:28 PT 9.9 (9.0-12.0) sec APTT 25.1 (22.0-30.0) sec Lipids 02/17/20 Range/Units 18:28 Triglycerides 70 (<150) mg/dL Cholesterol 111 (<200) mg/dL HDL Cholesterol 33 L (40-60) mg/dL CBC 02/17/20 Range/Units 18:28 WBC 5.6 (3.8-10.6) k/uL RBC 4.14 (3.80-5.40) m/uL Hgb 12.2 (11.4-16.0) gm/dL Hct 36.6 (34.0-46.0) % Plt Count 190 (150-450) k/uL Comprehensive Metabolic Panel 02/17/20 Range/Units 18:28 Sodium 135 L (137-145) mmol/L Potassium 4.9 (3.5-5.1) mmol/L Chloride 108 H (98-107) mmol/L Carbon Dioxide 23 (22-30) mmol/L BUN 18 H (7-17) mg/dL Creatinine 0.48 L (0.52-1.04) mg/dL Glucose 99 (74-99) mg/dL Calcium 8.7 (8.4-10.2) mg/dL AST 52 H (14-36) U/L ALT 139 H (4-34) U/L Alkaline Phosphatase 60 (38-126) U/L Total Protein 6.3 (6.3-8.2) g/dL Albumin 3.2 L (3.5-5.0) g/dL Current Medications Generic Name Dose Route Start Last Admin Trade Name Freq PRN Reason Stop Dose Admin Aspirin 325 mg 02/18/20 09:00 Aspirin 325 Mg Tab PO DAILY TIKI Hydromorphone HCl 0.5 mg 02/17/20 21:10 02/18/20 05:43 Hydromorphone 0.5 Mg/0.5 Ml Syringe IVP 0.5 mg Q4HR PRN Administration Pain Nitroglycerin 0.4 mg 02/17/20 20:46 Nitroglycerin Sl Tabs 0.4 Mg Tab SUBLINGUAL Q5M PRN Chest Pain Intake and Output 02/17/20 02/18/20 02/18/20 22:59 06:59 14:59 Intake Total 0 Balance 0 Intake: Oral 0 Other: Voiding Method Toilet # Voids 2 Weight 130.181 kg 135.8 kg 02/17/20 18:28 02/17/20 18:28 Assessment and Plan Assessment: Assessment #1 status post external eyes pacemaker via right x-ray approach #2 history of acute myocarditis #3 cardiomyopathy #4 multiple comorbid conditions Plan #1 the patient is nothing by mouth to be seen by Dr. Martinez #2 follow-up with the patient
[2020-02-18] MEDS ORDERED: ASPIRIN 325 MG TAB PO SCH (09:00)
[2020-02-18] MEDS ORDERED: SODIUM CHLORIDE 0.9% 1,000 ML IV SCH ×2 (12:00)
[2020-02-18] MEDS ORDERED: VANCOMYCIN 2,000 MG in SODIUM CHLORIDE 0.9% 500 ML 500 ML IVPB STA (12:28)
[2020-02-18] MEDS: PANTOPRAZOLE 40 MG TABLET PO SCH (13:32)
[2020-02-18] MEDS: FUROSEMIDE 20 MG TAB PO SCH (13:33)
[2020-02-18] MEDS ORDERED: fentaNYL (PF) 50 MCG/ML 2 ML AMP ONE (16:46)
[2020-02-18] MEDS ORDERED: MIDAZOLAM 2 MG/2 ML VIAL ONE (16:46)
[2020-02-18] MEDS ORDERED: LACTATED RINGERS 1,000 ML IV ONE (16:46)
[2020-02-18] MEDS ORDERED: HYDROCORTISONE 1% CREAM 30 GM TUBE TOPICAL PRN (17:04)
[2020-02-18] MEDS ORDERED: LIDOCAINE 1% INJ 10MG/ML (20 ML MDV) ONE (17:08)
[2020-02-18] MEDS ORDERED: LIDOCAINE 1% INJ 10MG/ML (20 ML MDV) SQ ONE (17:12)
--- NOTE | 2020-02-18 17:42 | P.EPPROC ---
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, IVCD, alternating bundle branch block Status post externalized pacemaker implant Elevated CRP greater than 18, elevated ESR and advanced heart block with alternating bundle branch block and intermittent third-degree heart block, wide QRS Reassessment today Patient complained of pain and tenderness at the insertion site White count normal No evidence for infection no fever Kidney functions improved Liver functions normalizing 33% RV pacing at a rate of 60 beats a minute Improvement in CRP to 6.3 Negative for coved PCR and antibody Negative for Paru virus Positive for early antigen Yuko-Pedroza but normal IgM She was brought to the EP lab Her rhythm had improved rate heart rate is 105 beats a minute NC interval is mildly prolonged On telemetry no evidence for third degree heart block Very occasional ventricular pacing at 60 beats a minute 2-D echo and Doppler study was reviewed and it shows normalization of LV function Plan Cancel biventricular ICD implantation Cancel permanent pacemaker implantation Continue externalized pacing but at a rate of 40 beats a minute Under sterile precautions, and after IV antibiotics, vancomycin The dressing was removed The area was cleaned The skin was painted with hydrocortisone ointment The pacemaker sutures were removed and new sutures were applied A new dressing was applied The counters were cleared on the pacemaker Pacemaker programmed at a backup rate of 40 beats a minute and we'll reassess her pacing percentage after 2 weeks If this is normal and less than 1% I would recommend 1. Exercise stress test to evaluate conduction system response to exercise If she does not have new any exercise-induced heart block, the externalized pacemaker will be removed 2. Reassessment after 6-12 weeks with a cardiac MRI to assess for any residual delayed enhancement especially in the septum 3. Based on the above data need for implantation of a loop monitor will be revisited after this data is available Patient may go home tomorrow on oral antibiotics for 2 weeks
--- NOTE | 2020-02-18 18:54 | ECHOF ---
Referral Reason:ASSESS LV FUNCTION MEASUREMENTS -------- HEIGHT: 177.8 cm WEIGHT: 135.6 kg BP: RVIDd: 3.5 cm (< 3.3) RAP: 15.00 mmHg RVSP: 37.16 mmHg FINDINGS -------- Paced rhythm. Limited Study Overall left ventricular systolic function is normal with, an EF between 55 - 60 %. The right ventricle is mildly enlarged. Mild tricuspid regurgitation present. There is mild pulmonary hypertension. The right ventricular systolic pressure, as measured by Doppler, is 37.16mmHg. The inferior vena cava is dilated with poor inspiratory collapse which is consistent with estimated r ight atrial pressure of 15 mmHg. There is no pericardial effusion. CONCLUSIONS -------- 1. Limited Study 2. Overall left ventricular systolic function is normal with, an EF between 55 - 60 %. 3. The right ventricle is mildly enlarged. 4. Mild tricuspid regurgitation present. 5. There is mild pulmonary hypertension. 6. The right ventricular systolic pressure, as measured by Doppler, is 37.16mmHg. 7. The inferior vena cava is dilated with poor inspiratory collapse which is consistent with estimate d right atrial pressure of 15 mmHg. 8. There is no pericardial effusion. [employer]IVE PARTS CLERK: Esther Werner RDCS
--- NOTE | 2020-02-18 22:27 | P.HPIM ---
History of Present Illness H&P Date: 02/18/20 Chief Complaint: Right upper chest pain. Patient is a 45-year-old female with a known history of hypothyroidism, seizure disorder, back pain and recently diagnosed with acute myocarditis complicated by cardiomyopathy and third-degree AV block intermittently who underwent ext ernalized pacemaker via right axillary approach. Patient presents to ER due to complaints of right arm pain and unable to lift her shoulder and discomfort in the pacemaker placement reason. Patient was advised to come to ER. Otherwise patient denied any complaints of chest pain or shortness of breath. No headache or dizziness or lightheadedness. Denied any heart racing or fast. No syncopal or presyncopal episode. No fever no chills. No cough or sputum production. Chest x-ray showed there is no heart failure or confluent pneumonic infiltrate. No acute cardiopulmonary process. No significant change. EKG showed sinus tachycardia with first-degree AV block Lab data showed sodium 135, potassium 4.9, chloride 108, BUN 18 and creatinine 0.48 Troponin 0 0.065, 0.065 and 0.057 AST 52 ALT 139 albumin 3.2 Review of Systems Constitutional: Patient denies any fever or chills . No generalized weakness or weight loss. Abdomen: Patient denied nausea vomiting and diarrhea and abdominal pain. Cardiovascular: Patient denies any chest pain or short of breath no palpitations. Right upper chest pain. Respiratory: patient denied any cough or sputum production. No shortness of breath Neurologic: Patient denied any numbness or tingling headache. Musculoskeletal: Patient denies any complaints of joint swelling or deformity. Skin: Negative Psychiatric: Negative Endocrine: No heat or cold intolerance. No recent weight gain. Genitourinary: No dysuria or hematuria. All other 14 point ROS negative except the above Past Medical History Past Medical History: Seizure Disorder, Thyroid Disorder Additional Past Medical History / Comment(s): BACK PAIN, ARTHRITIS, low thyroid hormone, migrane History of Any Multi-Drug Resistant Organisms: None Reported Past Surgical History: Bariatric Surgery, Cholecystectomy, Orthopedic Surgery, Pacemaker Additional Past Surgical History / Comment(s): LAP BAND, left foot; temp pace maker 02/08/20 Past Anesthesia/Blood Transfusion Reactions: No Reported Reaction, Motion Sickness Type of Cardiac Device: Unknown Device Placement Date:: 02/07 Past Psychological History: Anxiety, Bipolar, Depression Additional Psychological History / Comment(s): Pt resides with her significant other. They have a dog. She states she does not have a drivers license. She uses the bus to get to appts. Smoking Status: Current every day smoker Past Alcohol Use History: None Reported Additional Past Alcohol Use History / Comment(s): Pt started smoking in 1989 and is a ppd smoker. She used to drink a bottle of wine a day but quit that years ago. Past Drug Use History: Marijuana Additional Drug Use History / Comment(s): Pt states she overused opiates in the past but no longer a problem for years. - Past Family History Father Family Medical History: Cancer Additional Family Medical History / Comment(s): Father of brain cancer at the age of 77yrs. Mother Additional Family Medical History / Comment(s): Mother of "heart problems" at the age of 62 yrs. Medications and Allergies Home Medications Medication Instructions Recorded Confirmed Type Ibuprofen [Motrin Ib] 600 mg PO Q8H PRN 02/05/20 02/17/20 History Ondansetron Odt [Zofran ODT] 4 mg PO BID PRN 02/05/20 02/17/20 History DULoxetine HCL [Cymbalta] 20 mg PO DAILY #30 capsule. 02/11/20 02/17/20 Rx Omeprazole [PriLOSEC] 40 mg PO AC-BRKFST #14 capsule. 02/11/20 02/17/20 Rx Cephalexin [Keflex] 250 mg PO Q6HR #70 cap 02/18/20 Rx Allergies Allergy/AdvReac Type Severity Reaction Status Date / Time ketorolac tromethamine Allergy Rash/Hives Verified 02/17/20 21:12 [From Toradol] mushroom Allergy Unknown Verified 02/17/20 21:12 tramadol AdvReac SEIZURES Verified 02/17/20 21:12 Physical Exam Vitals: Vital Signs Temp Pulse Pulse Resp BP BP BP 02/18/20 08:00 97.9 F 79 16 168/89 02/18/20 04:00 80 17 113/59 02/18/20 01:51 80 18 02/18/20 00:00 98.0 F 90 18 165/82 02/17/20 22:40 98.0 F 90 18 165/82 02/17/20 21:24 98.5 F 88 18 110/75 02/17/20 20:00 89 18 109/69 02/17/20 18:04 99 F 110 H 18 137/67 Pulse Ox 02/18/20 08:00 97 02/18/20 04:00 96 02/18/20 01:51 02/18/20 00:00 98 02/17/20 22:40 98 02/17/20 21:24 95 02/17/20 20:00 95 02/17/20 18:04 97 Intake and Output 02/17/20 02/18/20 02/18/20 22:59 06:59 14:59 Intake Total 0 Balance 0 Intake: Oral 0 Other: Voiding Method Toilet Toilet # Voids 2 Weight 130.181 kg 135.8 kg PHYSICAL EXAMINATION: Patient is lying in the bed comfortably, no acute distress, awake alert and oriented.. HEENT: Normocephalic. Neck is supple. Pupils reactive. Nostrils clear. Oral cavity is moist. Ears reveal no drainage. Neck reveals no JVD, carotid bruits, or thyromegaly. CHEST EXAMINATION: Trachea is central. Symmetrical expansion. Lung cartwright clear to auscultation and percussion. CARDIAC: Normal S1, S2 with no gallops. No murmurs ABDOMEN: Soft. Bowel sounds normal. No organomegaly. No abdominal bruits. Extremities: reveal no edema. No clubbing or cyanosis Neurologically awake, alert, oriented x3 with well-coordinated movements. No focal deficits noted Skin: No rash or skin lesions. Psychiatric: Coperative. Nonsuicidal Musculoskeletal: No joint swelling or deformity. Normal range of motion. Results CBC & Chem 7: 02/17/20 18:28 02/17/20 18:28 Labs: Abnormal Lab Results - Last 24 Hours (Table) 02/17/20 02/17/20 02/17/20 Range/Units 18:28 18:28 18:28 ESR 28 H (0-20) mm/hr Sodium 135 L (137-145) mmol/L Chloride 108 H (98-107) mmol/L BUN 18 H (7-17) mg/dL Creatinine 0.48 L (0.52-1.04) mg/dL AST 52 H (14-36) U/L ALT 139 H (4-34) U/L Troponin I 0.065 H* (0.000-0.034) ng/mL Albumin 3.2 L (3.5-5.0) g/dL HDL Cholesterol (40-60) mg/dL 02/17/20 02/17/20 02/18/20 Range/Units 18:28 22:00 00:27 ESR (0-20) mm/hr Sodium (137-145) mmol/L Chloride (98-107) mmol/L BUN (7-17) mg/dL Creatinine (0.52-1.04) mg/dL AST (14-36) U/L ALT (4-34) U/L Troponin I 0.065 H* 0.057 H* (0.000-0.034) ng/mL Albumin (3.5-5.0) g/dL HDL Cholesterol 33 L (40-60) mg/dL Thrombosis Risk Factor Assmnt - DVT/VTE Prophylaxis DVT/VTE Prophylaxis: Pharmacologic Prophylaxis ordered - Choose All That Apply Any of the Below Risk Factors Present?: Yes Each Factor Represents 1 point: Age 41-60 years, Obesity (BMI >25) Thrombosis Risk Factor Assessment Total Risk Factor Score: 2 Thrombosis Risk Factor Assessment Level: Low Risk Assessment and Plan Assessment: Right upper chest discomfort with recent external pacemaker placement via right axillary approach. Recent history of myocarditis and cardiomyopathy and third-degree AV block. Hypothyroidism History of seizure disorder Chronic back pain Osteoarthritis Migraine headaches History of bariatric surgery /lap band surgery Morbid obesity with BMI 43.0 Anxiety/depression/bipolar disorder Currently everyday smoker Mild transaminitis DVT prophylaxis with heparin subcu starting from tomorrow Plan:-Patient be continued on telemetry monitoring. Pain management with Dilaudid and can with home medications. Cardiology has seen the patient and is planning for permanent pacemaker placement. Continue the current management and further recommendations based on the clinical course. Time with Patient: Greater than 30
[2020-02-19] MEDS: HYDROmorphone 0.5 MG/0.5 ML SYRINGE IVP PRN ×6 (01:35→21:06)
[2020-02-19] MEDS: PANTOPRAZOLE 40 MG TABLET PO SCH (06:14)
[2020-02-19] MEDS ORDERED: ceFAZolin 1 GM in SODIUM CHLORIDE 0.9% 250 ML IRRIGATION PRN (07:00)
[2020-02-19] MEDS ORDERED: ceFAZolin 3 GM in SODIUM CHLORIDE 0.9% 100 ML IVPB PRN (07:00)
--- NOTE | 2020-02-19 08:03 | P.PN ---
Subjective Progress Note Date: 02/19/20 Principal diagnosis: Myocarditis/cardiomyopathy This is a very pleasant 45-year-old female patient was admitted to the hospital recently with myocarditis and was diagnosed subsequently with cardiomyopathy with a low EF. She went into third degree AV block required temporary pac emaker. The patient was admitted to the hospital yesterday because she was having some bleeding above the dressing the pacemaker from the right axillary. She was taken downstairs by Dr. Martinez and the dressing was changed. The repeated echo showed normalization in the left ventricular systolic function. The patient was seen this morning. She is hypertensive. I am going to start the patient on lisinopril 10 mg by mouth daily. I would advise monitor the patient overnight Objective - Vital Signs Vital signs: Vital Signs Temp 98.5 F 02/18/20 20:00 Pulse 76 02/19/20 04:00 Resp 18 02/19/20 04:00 BP 175/89 02/19/20 04:00 Pulse Ox 99 02/19/20 04:00 Intake & Output 02/18/20 02/19/20 02/19/20 18:59 06:59 18:59 Intake Total 890 350 Balance 890 350 Weight 134.6 kg Intake: IV 250 Intake, IV Titration 100 Amount Sodium Chloride 0.9% 1, 100 000 ml @ 50 mls/hr IV . Q20H [facility] Rx#:[id number] Oral 640 250 Other: Voiding Method Toilet Toilet # Voids 2 1 - Constitutional General appearance: Present: no acute distress - Respiratory Respiratory: bilateral: CTA - Cardiovascular Rhythm: regular Heart sounds: normal: S1, S2 - Labs CBC & Chem 7: 02/17/20 18:28 02/17/20 18:28 Labs: Microbiology - Last 24 Hours (Table) 02/17/20 18:28 Blood Culture - Preliminary Blood No Growth after 24 hours Assessment and Plan Assessment: Assessment #1 status post external eyes pacemaker via right x-ray approach #2 history of acute myocarditis #3 cardiomyopathy #4 multiple comorbid conditions Plan #1 cardiomyopathy which has improved #2 start the patient on lisinopril 10 mg by mouth daily #3 monitor the patient for additional 24 hours
[2020-02-19] MEDS: FUROSEMIDE 20 MG TAB PO SCH ×2 (08:40→17:17)
[2020-02-19] MEDS: lisinopriL 10 MG TAB PO SCH (08:40)
[2020-02-19] MEDS: DULoxetine HCL 20 MG CAPSULE.DR PO SCH (08:40)
[2020-02-19 12:30] LABS: African American GFR (CKD) >90 (>60 ml/min/1.73 sqM); Anion Gap 4 mmol/L; Blood Urea Nitrogen 12 mg/dL (7-17); Calcium 8.9 mg/dL (8.4-10.2); Carbon Dioxide 19 mmol/L (22-30); Chloride 112 mmol/L (98-107); Glucose 94 mg/dL (74-99); Non-African American GFR(CKD) >90 (>60 ml/min/1.73 sqM); Potassium 4.4 mmol/L (3.5-5.1); Sodium 135 mmol/L (137-145)
[2020-02-19] MEDS: HEPARIN SODIUM,PORCINE 5,000 UNIT/ML 1 ML VIAL SQ SCH ×2 (17:17→23:15)
[2020-02-19 23:20] VITALS: PULSE 86
[2020-02-20] MEDS: HYDROmorphone 0.5 MG/0.5 ML SYRINGE IVP PRN ×3 (01:30→09:31)
[2020-02-20 05:21] VITALS: RESP 18
[2020-02-20] MEDS: PANTOPRAZOLE 40 MG TABLET PO SCH (05:22)
[2020-02-20] MEDS: lisinopriL 10 MG TAB PO SCH (09:30)
[2020-02-20] MEDS: FUROSEMIDE 20 MG TAB PO SCH (09:30)
[2020-02-20] MEDS: DULoxetine HCL 20 MG CAPSULE.DR PO SCH (09:30)
[2020-02-20] MEDS: HEPARIN SODIUM,PORCINE 5,000 UNIT/ML 1 ML VIAL SQ SCH (09:30)
--- NOTE | 2020-02-20 09:39 | P.PN ---
Subjective Progress Note Date: 02/20/20 Principal diagnosis: Myocarditis/cardiomyopathy This is a very pleasant 45-year-old female patient was admitted to the hospital recently with myocarditis and was diagnosed subsequently with cardiomyopathy with a low EF. She went into third degree AV block required temporary pac emaker. The patient was seen today February [id number]. She is asymptomatic from a cardiovascular standpoint. Hemodynamically she is stable with significant improvement in the blood pressure after she was started on lisinopril. From a cardiovascular standpoint of view, the patient can be discharged home Objective - Vital Signs Vital signs: Vital Signs Temp 98.3 F 02/20/20 04:00 Pulse 86 02/20/20 04:00 Resp 18 02/20/20 04:00 BP 131/77 02/20/20 04:00 Pulse Ox 96 02/20/20 04:00 Intake & Output 02/19/20 02/20/20 02/20/20 18:59 06:59 18:59 Intake Total 880 240 Balance 880 240 Weight 136.7 kg Intake: Intake, IV Titration 400 Amount Sodium Chloride 0.9% 1, 300 000 ml @ 50 mls/hr IV . Q20H [facility] Rx#:[id number] ceFAZolin 1 gm In Sodium 100 Chloride 0.9% 50 ml @ 100 mls/hr IVPB Q8H [facility] Rx#: [id number] Oral 480 240 Other: Voiding Method Toilet Toilet # Voids 2 1 - Constitutional General appearance: Present: no acute distress - Respiratory Respiratory: bilateral: CTA - Cardiovascular Rhythm: regular Heart sounds: normal: S1, S2 - Labs CBC & Chem 7: 02/17/20 18:28 02/19/20 09:05 Labs: Abnormal Lab Results - Last 24 Hours (Table) 02/19/20 Range/Units 09:05 Sodium 135 L (137-145) mmol/L Chloride 112 H (98-107) mmol/L Carbon Dioxide 19 L (22-30) mmol/L Creatinine 0.47 L (0.52-1.04) mg/dL Microbiology - Last 24 Hours (Table) 02/17/20 18:28 Blood Culture - Preliminary Blood No Growth after 48 hours Assessment and Plan Assessment: Assessment #1 status post external eyes pacemaker via right x-ray approach #2 history of acute myocarditis #3 cardiomyopathy #4 multiple comorbid conditions Plan #1 cardiomyopathy which has improved #2 hypertension which has improved #3 the patient can be discharged home
[2020-02-20 12:33] VITALS: BP 114/53; TEMP 98.7
== END 2020-02-20 12:16 | disposition home or self-care (01) | DRG 315 ==
LOC: EC 18:01 → 3SCARD 20:48
PROVIDERS: ADMIT Hospitalist; ATTEND Hospitalist
PROC: 4B02XSZ Measurement of Cardiac Pacemaker, External Approach (ICD-10-PCS; principal; 2020-02-18 11:50)
DX: T82.837A Hemorrhage due to cardiac prosthetic devices, implants and grafts, initial encounter (principal); Z68.41 Body mass index [BMI] 40.0-44.9, adult; I42.9 Cardiomyopathy, unspecified; E66.01 Morbid (severe) obesity due to excess calories; E03.9 Hypothyroidism, unspecified; F17.210 Nicotine dependence, cigarettes, uncomplicated; F31.9 Bipolar disorder, unspecified; F41.9 Anxiety disorder, unspecified; G40.909 Epilepsy, unspecified, not intractable, without status epilepticus; G43.909 Migraine, unspecified, not intractable, without status migrainosus; G89.29 Other chronic pain; M19.90 Unspecified osteoarthritis, unspecified site; Y71.2 Prosthetic and other implants, materials and accessory cardiovascular devices associated with adverse incidents; Z79.899 Other long term (current) drug therapy; Z80.8 Family history of malignant neoplasm of other organs or systems; Z98.84 Bariatric surgery status; Z53.8 Procedure and treatment not carried out for other reasons; Z90.49 Acquired absence of other specified parts of digestive tract; Z82.49 Family history of ischemic heart disease and other diseases of the circulatory system; R74.01 Elevation of levels of liver transaminase levels; I10 Essential (primary) hypertension; Z45.018 Encounter for adjustment and management of other part of cardiac pacemaker
CPT/HCPCS: 12020; 36415; 71046; 80048; 80053; 80061; 83516; 83690; 83735; 84484; 85025; 85610; 85652; 85730; 86140; 87040; 93005; 93308; 96374; 99285